=== PATIENT | female | born 1995 | race Caucasian/White ===

== ENCOUNTER 2017-01-07 11:02 | Emergency (ER) | payer BC, OTHER ==
[~2017-01-07] VITALS: Ht 157.5 cm; Wt 85.1 kg
[~2017-01-07 11:02] MED LIST: CLC100 PO; FRRS300 PO; LBT100 PO; PRENTAB26 PO
[2017-01-07 11:21] VITALS: TEMP 36.9; Ht 157.5 cm; Wt 85.1 kg
[2017-01-07] MEDS ORDERED: DIPHTHERIA/TETANUS/PERTUSSIS 0.5 ML SYR/VIAL IM. ONE (11:45)
--- NOTE | 2017-01-07 11:56 | EMERGENCY ROOM VISIT NOTE ---
ED Visit Note First contact with patient: 11:28 CHIEF COMPLAINT: Laceration to right third finger HISTORY OF PRESENT ILLNESS: This 21-year-old female presents the ER with chief complaint that she cut her right third finger on a scalpel while she was at work. 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 She states she was washing off the tray after he did and extraction and cut her right third finger through her glove. She does know the patient's name but at this point they did not contact the patient about her situation. The patient is unsure of her tetanus status. REVIEW OF SYSTEMS: 6 system review was performed and was negative unless stated otherwise in history of present illness. PMH: The patient is healthy; hypertension SOCIAL HISTORY: Patient lives with her parents. The patient denies any tobacco use but admits to occasional alcohol use. PHYSICAL EXAM: Vital Signs are reviewed: Reviewed Nurse's notes and agree. GENERAL: 21-year-old white female appears in no acute distress. MENTAL status: Alert oriented x3. Right third finger: There superficial cut on the dorsal aspect of the distal phalanx with mild active bleeding. EMERGENCY DEPARTMENT COURSE: The patient was evaluated. The wound was thoroughly cleansed with saline. The wound was dried and Dermabond applied. Adacel was given. HIV consent form was signed. Significant bodily fluid exposure was completed. Hepatitis panel and HIV panel was ordered. The patient was discharged home in stable condition. DIAGNOSIS: Significant body fluid exposure secondary to small cut on right third finger DISCHARGE INSTRUCTIONS: Observe for any signs of infection. If any should occur , follow-up family doctor. We will call you with your laboratory results. You need to contact the patient as soon as possible and have him tested for hepatitis and HIV. Further treatment based on laboratory results. Current/Historical Medications Scheduled Docusate Sodium (Docusate Sodium), 100 MG PO BID Ferrous Sulfate (Ferrous Sulfate), 325 MG PO BID Labetalol HCl (Labetalol HCl), 100 MG PO BID Multivit/Min/Iron/Fol Ac/Pren ( Vitamin), 1 TAB PO DAILY Allergies Coded Allergies: No Known Allergies (Unverified , 08/26/14) Vital Signs Date Time Temp Pulse Resp B/P Pulse Ox O2 Delivery O2 Flow Rate FiO2 01/07/17 11:21 36.9 80 18 128/88 98 Room Air Laboratory Results Test 01/07/17 11:37 Medications Administered Medications (Trade) Dose Ordered Sig/[place]osua Route Start Time Stop Time Status Last Admin Dose Admin Diphtheria/ Pertussis/Tetanus Vacc (Adacel Inj) 0.5 ml ONCE ONCE IM. 01/07/17 11:45 01/07/17 11:46 DC 01/07/17 11:46 0.5 ML Departure Information Referrals No Doctor, Assigned (PCP) Patient Instructions [facility]
[2017-01-07 12:15] VITALS: BP 121/78; PULSE 58; O2SAT 98
== END 2017-01-07 12:16 | disposition home or self-care (01) ==
LOC: C.EDB 11:03 → C.EDD 12:16
DX: S61.212A Laceration without foreign body of right middle finger without damage to nail, initial encounter (principal); W45.8XXA Other foreign body or object entering through skin, initial encounter; Y92.89 Other specified places as the place of occurrence of the external cause; Y99.0 Civilian activity done for income or pay; Z23 Encounter for immunization; I10 Essential (primary) hypertension; Z79.899 Other long term (current) drug therapy

== ENCOUNTER 2024-03-21 07:42 | Inpatient (IN) ==
--- OUTSIDE RECORDS SUMMARY | 2024-03-21 07:48 | External Medical Summary | Summary of Care ---
Author Name Unknown Organization [facility] Address [address] [place] [address] Phone [phone] Care Team Providers Care Tire Repairer Name Role Phone Marquez Jasmine PA-C Primary Care Provider Reason for Visit * Reason Comments Non Stress Test Encounter Details Date Type Department Care Team (Late st Contact Info) Description 03/13/2024 1:15 PM EDT Office Visit Gynecology/Obstetric s [facility] [address] [place] [address] Leena Mccarthy CRNP [address] [place] [address] [place], Non Stress Tests [facility] [address] [facility] [place] [address] Supervision of high risk in third trimester*; Obesity in , antepartum; Maternal asthma complicating ; History of gestational hypertension; Insulin controlled gestational diabetes mellitus (GDM) during , antepartum; Single umbilical artery, maternal, antepartum Allergies No known active allergiesdocumented as of this encounter (statuses as of 03/13/2024) Medications Medication Sig Dispensed Refills Start Date End Date Status /Folic Acid Oral Tablet Take by mouth. Active Aspirin 81 MG Oral Tablet ChewableIndications: High-risk in first trimester Take 1 Tablet by mouth in the morning. 100 Tablet 3 09/14/2023 Active Eth[employer] Verio Flex System w/Device Kit Use to test blood sugars 4 times daily (fasting, 1 hour after breakfast, lunch, and dinner) 1 Kit 09/17/2023 Active PlaymysongTouch Verio In Vitro Strip (Glucose Blood) Use to test blood sugars 4 times daily (fasting, 1 hour after breakfast, lunch, and dinner) 125 Strip 6 09/17/2023 Active [employer]mysongTo[employer] Delica Lancets 30G Use to test blood sugars 4 times daily (fasting, 1 hour after breakfast, lunch, and dinner) 200 Each 6 09/17/2023 Active BD Pen Needle Mini U/F 31G X 5 MM (Insulin Pen Needle)Indications:I nsulin controlled gestational diabetes mellitus (GDM) in second trimester,Supervisio n of high risk in second trimester Use to inject insulin once daily. 100 Each 3 09/29/2023 Active Breast Pump Use as directed 1 Each 01/13/2024 Active Insulin Glargine Solostar 100 UNIT/ML Subcutaneous Solution Pen-injector (Lantus SoloStar)Indications :Supervision of high risk in third trimester,Insulin controlled gestational diabetes mellitus (GDM) in third trimester Inject under the skin 10 units with breakfast and 25 units at bedtime 15 mL 3 02/28/2024 Active documented as of this encounter (statuses as of 03/13/2024) Active Problems Problem Noted Date Diagnosed Date Single umbilical artery, maternal, antepartum Last Assessment & Plan: Reviewed that an isolated two vessel cord is considered a normal variant of and occurs in up to 1% of pregnancies. In the absence of any other abnormalities noted on ultrasound, there is not an increased incidence of chromosome abnormalities beyond the baseline age-related risk. There is a slightly increased incidence, however, of growth restriction and stillbirth. Recommend Maternal Medicine ultrasound for growth at 28-32 weeks. Recommend weekly NSTs at 36 weeks. Insulin controlled gestation al diabetes mellitus (GDM) during , antepartum 09/21/2023 Overview: Diagnosed at 13 weeks Nutrition consult ordered; appt scheduled 10/04/2023 Has OneTouch and supplies A1C ordered Lab Results Component Value Date/Time 50-G GESTATIONAL GLUCOSE, 1 HOUR - [facility] 168 (H) 09/14/2023 09:22 AM 100-G GESTATIONAL GLUCOSE, 1 HOUR - [facility] 213 (H) 09/17/2023 09:00 AM 100-G GESTATIONAL GLUCOSE, 2 HOUR - [facility] 172 (H) 09/17/2023 10:00 AM 100-G GESTATIONAL GLUCOSE, 3 HOUR - [facility] 80 09/17/2023 11:01 AM 100-G GESTATIONAL GLUCOSE, FASTING - [facility] 103 (H) 09/17/2023 07:59 AM Patient reports her FBS is running in the 80's All after meal values are < 140 09/23/23: MFM ADAPT consult complete. Enrolled in [employer]. Instructions provided to report blood sugars each week for MFM review 09/27/23: RPM elevated fasting and PP values; recommend follow up ADAPT; message sent to scheduling. 09/29/23: ADAPT visit complete; elevated FBS and some PP; ordered Basaglar 10 units at bedtime 10/04/23- elevated sugars message sent to VOICE STUDIES DIRECTOR 10/04/23: RPM increase to Basaglar 20 units at bedtime; review breakfast values/meals with nutrition today. 10/07/23: A1C = 5.2 ---KW 10/11/23-stable 10/19/23: RPM Stable 10/26/23: RPM elevated PP values; increased to Basaglar 10 units with breakfast and 20 units at bedtime 11/02/23: RPM reviewed. Looking good. No medication change. Continue basaglar 10 units with breakfast and 20 units at bedtime --KW 11/08/23-stable 11/15/23-stable ; some elevated will monitor 11/22/23-stable 11/30/23- elevated fastings msg sent to VOICE STUDIES DIRECTOR 11/30/23: RPM reviewed; elevated FBS; continue Basaglar 10 units with breakfast and increase to 25 units at bedtime 12/06/23: RPM reviewed. Elevated FBS and after dinner values. Continue Basaglar 10 units with breakfast for now; increase to 30 units at bedtime. 12/13/2023- elevations in FBS sent to VOICE STUDIES DIRECTOR 12/13/23: RPM increase to Basaglar 10 units with breakfast and 40 units at bedtime 12/20/2318-[id number] missing sugars- will msg pt 12/27/23- stable- missing numbers- will review again next week 01/03/24: RPM message sent requesting updated blood sugars 01/10/24: has not entered blood sugars into [employer] since 12/29/23. Message to [facility] to assist patient with scheduling FU ADAPT 01/17/24: RPM message received - patient states she self discontinued insulin; only 1 blood sugar reported this past week and it was FBS 97; recommend F/U ADAPT visit 01/24/24: RPM reviewed. Patient testing very inconsistently, but reported numbers are WNL. Did not return calls to schedule ADAPT F/U last week. Will offer F/U visit again this week. 01/31/24: RPM reviewed. Patient has not reported blood sugars since 01/23. Will attempt again to schedule ADAPT F/U. Message sent to patient's OB; she has return visit scheduled this afternoon. 02/02/24: [facility] called patient on 01/16, 01/18, 01/24, 01/30 and today 02/01. Also sent MyG on 01/18, 01/25 and 01/30 to schedule ADAPT FU. No response from patient thus far. Telephone encounter routed to OB team. 02/07/24: RPM reviewed, no readings reported. Pt sent message that aline isn't working for her. Gave logs to OB. I reviewed the logs in the [email or web address] media portion of [facility]. FBS and after dinner elevated. Advised that Insulin needs to be restarted. Advised to restart: Basaglar 10 units at breakfast and 30 units at bedtime--KW 02/14/24: No blood sugars available to review in RPM; message sent to patient requesting to update log 02/14/24: patient sent MyG message with updated log; stable; continue Basaglar 10 units at breakfast and 30 units at bedtime; will offer patient weekly ADAPT as well 02/21/24: RPM reviewed; not reporting in [employer] Aline; message sent to the P[facility] to schedule a FU ADAPT 02/28/24: RPM reviewed; no blood sugars reported; ADAPT visit scheduled today - sent patient a reminder 02/28/24: ADAPT visit complete; stable but patient reports FBS 70s this week causing her to feel shaky; reviewed how to recognize and treat hypoglycemia; continue Lantus 10 units at breakfast and decrease to 25 units at bedtime; F/U ADAPT scheduled 03/06/2024 @ 3:00PM 03/06/24: RPM reviewed; no blood sugars reported; patient has upcoming ADAPT visit today 03/06/24: No show to ADAPT visit; [facility] to assist patient with rescheduling 03/[id number]/[id number] reporting. Sent message via [employer] and [employer] asking her to update. 03/13/24: Patient sent her BG log via [employer] message. All values within target. Continue Lantus 10 units at breakfast and 25 units at bedtime / Scheduled for IOL 03/21/24 Last Assessment & Plan: Working with ADAPT however, did not attend recent appointment and needs to reschedule KEENAN as not submitting sugars. Please encourage her to return call to [facility]. , supervision, high-risk 08/18/2023 Obesity in , antepartum 08/18/2023 Overview: Pre gravid BMI: 41.11 Class 3 obesity Last Assessment & Plan: CONSIDERATIONS: Discussed obstetrical risks associated with class III obesity (pre- BMI of greater than or equal to 40) Reviewed that the accuracy of ultrasound at diagnosing anomalies is significantly decreased for women with an increased BMI. RECOMMENDATIONS: Recommend restricting weight gain during to 11-20 pounds. Patient should be referred for a nutrition consult. Recommend evaluation for signs and symptoms (snoring, excessive daytime sleepiness witnessed apnea or unexplained hypoxia) of obstructive sleep apnea. If any of these are present, referral to Sleep Medicine specialist for further evaluation should be considered. Recommend performing gestational diabetes mellitus screen now (if not performed at first visit) and repeat again at 26-28 weeks if early screen is normal. Recommend Maternal- Medicine ultrasound for anatomy at 20 weeks and for growth every 4 weeks thereafter. For patients with Class 3 obesity, we recommend baseline preeclamptic labs with CBC, serum AST/ALT/creatinine and 24 hour urine protein KEENAN if not already done. For patients with Class 3 obesity, we recommend weekly surveillance starting at 34 weeks and delivery by EDC. Recommend anesthesia consult during the antepartum period. Maternal asthma complicating 10/25/202 3 Overview: Diagnosed in childhood 09/23/23 last albuterol use: > 5 years ago Denies hospitalizations or intubations due to asthma Last Assessment & Plan: CONSIDERATIONS: Asthma symptoms may improve, worsen or remain unchanged in severity in . Asthma is generally managed the same in as in the non- patient, as asthma-control medications are considered safe in . If asthma is well-controlled with medications prior to , it is recommended to continue the same medication regimen during . A patient should seek medical care immediately if an asthma flare does not respond to therapy. Mild and well-controlled moderate asthma can be associated with excellent maternal and outcomes. Severe and poorly controlled asthma may be associated with increased morbidity and mortality. Asthma management includes monitoring of lung function with pulmonary function testing (when indicated), avoidance of triggers (such as tobacco smoke, mold, dust mite exposure, animal dander and cockroaches), and a step-care approach to pharmacologic therapy based on the severity of the patient's asthma. RECOMMENDATIONS: Inhaled corticosteroids are the mainstay of therapy for all patients except those with intermittent asthma. If patients are routinely requiring rescue inhaler (such as albuterol, Ventolin, ProAir, Atrovent, or Proventil) use more than twice weekly, we recommend adding a low-dose inhaled corticosteroid. [Pulmicort (budesonide) is preferred to use in .] If patients are routinely requiring rescue inhaler use daily, we recommend adding a combined low-dose inhaled corticosteroid/long-acting beta-agonist [such as Advair (fluticasone/salmeterol) or Symbicort (budesonide/formoterol)] or a medium dose inhaled corticosteroid. Patient should discuss these treatment options with her primary OB provider or PCP. Typically, patients do not need stress dose steroids as long as they continue their usual dose perioperatively (or during labor) and do not have primary renal failure or other problems with the pituitary axis. Medications such as prostaglandin F2a (including Hemabate), ergonovine, and indomethacin (in patients who are aspirin allergic) should be used with caution. Patients with moderate or severe persistent asthma should have Maternal- Medicine ultrasound for anatomy at 19-20 weeks. surveillance with growth ultrasounds and non-stress tests should be considered starting at 32 weeks. History of gestational hypertension 08/18/2023 Overview: 2014: first , diagnosed at 38w, delivered at term, was temporarily on anti-hypertensive x 2 weeks Currently not on any anti-hypertensive Taking daily low dose ASA Baseline Preeclampsia Labs Lab Results Component Value Date/Time PLATELET AUTO - [facility] 224 08/18/2023 09:43 AM CREATININE - [facility] 0.6 08/18/2023 09:43 AM AST - [facility] 11 08/18/2023 09:43 AM ALT - [facility] 14 08/18/2023 09:43 AM PROTEIN/ CREATININE RATIO, URINE - [facility] 88 08/18/2023 09:35 AM BP Readings from Last 10 Encounters: 09/14/23 130/84 08/18/23 128/78 05/31/23 118/80 02/16/22 116/80 11/22/19 110/64 11/10/19 108/64 12/18/14 132/68 12/03/14 112/70 10/11/14 110/70 09/05/14 124/72 Last Assessment & Plan: CONSIDERATIONS: Explained to patient that in a woman who has always had normal blood pressures, gestational hypertension (GHTN) is defined as persistent elevations in her BP after 20 weeks gestation. Elevated BP is defined as greater than or equal to 140mmHg systolic or greater than 90mmHg diastolic on two separate occasions at least 4 hours apart after 20 weeks gestation. Explained to patient that women with hypertension during are at significantly increased risk for placental abruption, pre-eclampsia/eclampsia, delivery, gestational diabetes, growth restriction, stillbirth, delivery, hemorrhage, and maternal morbidity. These risks are related to the severity of the hypertension RECOMMENDATIONS: Recommend patient be followed clinically. Also recommend labwork with AST/ALT and platelets, and urine protein screen. If diagnosed with gestational hypertension recommend Maternal Medicine ultrasound for growth within 1 week of GHTN diagnosis and then every 4 weeks thereafter. Reviewed that GHTN, pre-eclampsia and HELLP are not preventable conditions. There is some evidence that daily ASA 81mg may decrease the risk for recurrence in patients with additional risk factors we recommend that proceed with starting this therapy at 13 weeks. Mixed anxiety depressive disorder 01/25/2015 Asthma with severity to be determined 01/25/2001 Overview: ICD-10 update of inactive term Estimated Date of Delivery Comme nts Yes 03/27/2024 Based on last me nstrual period of 06/21/2023, had Mirena removed 05/31/23 only had 1 period from removal until documented as of this encounter (statuses as of 03/13/2024) Resolved Problems Problem Noted Date Diagnosed Date Resolved Date with 13 completed weeks gestation 09/23/2023 09/23/2023 Glucose intolerance of 09/14/2023 09/21/2023 Overview: Elevated early 1 hr - 3 hr GTT ordered , normal first 02/09/201408/25 Overview: 05/30/2014 Tdap Vaccine administered per clinic protocol. Pt given VIS(vaccine information sheet) Flower Armstrong RN Elevated 1 hour GTT: 146 3 hour GTT: normal. Patient declines flu vaccine. 08/02/2014 Raven Cutler RN NO KNOWN PROBLEMS 02/09/2014 documented as of this encounter (statuses as of 03/13/2024) Immunizations Name Administration Dates Next Due HPV Vaccine, 4-Valent 08/02/2008,03/29/2008,12/24 Meningococcal Conjugate Vacc ine (Menactra/Menveo) 01/13/2008 Seasonal Influenza, Split, I IV3, With Preserve, Inj 09/14/2008,08/12/2006 TDAP (age 10 and older)(Boostrix) 01/13/2024,03/2014 TDAP (age 11 and older)(Adacel) 07/21/2006 documented as of this encounter Social History Tobacco Use Types Packs/Day Years Used Date Smoking Tobacco: Never Smokeless Tobacco: Never Comments:grandmother smokes Alcohol Use Standard Drinks/Week Comments No 0 (1 standard drink = 0.6 oz pur e alcohol) PHQ-2 Answer Date Recorded PHQ Adult Total Score 0 01/13/2024 Hunger Vital Sign Answer Date Recorded Within the past 12 months, y ou worried that your food would run out before you got the money to buy more. Never true 11/07/19 24 Within the past 12 months, t he food you bought just didn't last and you didn't have money to get more. Never true 11/07/2023 [place] Depression Scale Answer Date Recorded [place] Depression Scale Total 2 01/13/2024 The thought of harming myself has occurred to me . Never 01/13/2024 Estimated Date of Delivery Comme nts Yes 03/27/2024 Based on last me nstrual period of 06/21/2023, had Mirena removed 05/31/23 only had 1 period from removal until Sex and Gender Information Value Date Recorded Sex Assigned at Female 05/28/2023 12:32 PM EDT Gender Identity Female 05/28/2023 12:32 PM EDT Sexual Orientation Straight 05/28/2023 12 :37 PM EDT Job Start Date Occupation Industry Not on file Not on file Not on file documented as of this encounter Last Filed Vital Signs Vital Sign Reading Time Taken Comments Blood Pressure 124/74 03/13/2024 1:03 PM EDT Pulse - - Temperature - - Respiratory Rate - - Oxygen Saturation - - Inhaled Oxygen Concentration - - Weight 109.3 kg (241 lb) 03/13/2024 1:03 PM EDT Height - - Body Mass Index 42.69 02/21/2024 1:34 PM EDT documented in this encounter Progress Notes * Leena Mccarthy CRNP - 03/13/2024 1:40 PM EDT 38w0d movement still her norm; some ctx. No leaking/bleeding. Sent blood sugar readings to [facility] today, WNL. Requests membrane sweep, advised this cannot be done prior to 39 wks. Induction is next Wednesday. Declines cervical exam today. Growth scan done last week with [facility]. NST on . TAMIKO Samano ASSESSMENT assessment with Non-stress Test completed on 03/13/2024 at 38 weeks gestation for indication of gestational diabetes mellitus, 2 VC, and obesity heart baseline: 140 bpm Variability: Moderate Decelerations: absent Accelerations: present Contractions: Present occasionally NST start time: 1308 NST stop time: 1333 NST strip reviewed, interpreted, and approved by OB provider, TAMIKO Samano . NST strip stored in clinic storage file documented in this encounter Plan of Treatment Upcoming Encounters Date Type Department Care Team (Late st Contact Info) Description 03/16/2024 1:45 PM EDT Office Visit Gynecology/Obstetrics [facility] [address] [place] [id number] Leena Mccarthy CRNP [address] [place] [address] [facility] Stress [facility] [address] [place] [id number] Health Maintenance Due Date Last Done Comments Pneumococcal Vaccine: Pediat rics (0 to 5 Years) and At-Risk Patients (6 to 64 Years) (1 of 2 - PCV) 2001 *SPIROMETRY ONCE FOR ASTHMA-ADULT 09/17/2022 COVID-19 Vaccine (2 - 2022-2 4 season) 2023 03/07/2021 Influenza Vaccine (FLU shot) (Season Ended) 2024 09/14/2008, 08/12/2006 Pap Smear 05/31/2026 05/31/2023, 10/25, 11/10/2019 DTaP,Tdap,and Td Vaccines (9 - Td or Tdap) 01/12/2034 01/13/2024, 05/30/2014, 07/21/2006, Additional history exists Hepatitis B Completed 1995, 11/1995, 1995, Additional history exists GARDASIL-HPV IMMUNIZATION SERIES Completed 08/02/2008, 03/29/2008, 01/13/2008, Additional history exists MENINGOCOCCAL (MENACTRA/MENVEO) Completed 06/24/2011, 01/13/2008, 01/13/2008 documented as of this encounter Medical Devices Not on filedocumented as of this encounter Visit Diagnoses Diagnosis Supervision of high risk in third trimester- Primary Unspecified high-risk Obesity in , antepartum Obesity complicating , childbirth, or the puerperium, antepartum condition or complication Maternal asthma complicating Other current maternal conditions classifiable elsewhere, complicating , childbirth, or the puerperium, unspecified as to episode of care History of gestational hypertension Insulin controlled gestational diabetes mellitus (GDM) during , antepartum Single umbilical artery, maternal, antepartum Other umbilical cord complications during labor and delivery, antepartum documented in this encounter Care Teams Tire Repairer Relationship Specialty Start Date End Date Marquez Jasmine PA-C [address] [place] [id number] PCP - General Physician Microfiche Camera Operator 11/02/14 documented as of this encounter
--- OUTSIDE RECORDS SUMMARY | 2024-03-21 07:48 | External Medical Summary | Summary of Care ---
Author Name Unknown Organization [facility] Address [address] [place] [address] Phone [phone] Care Team Providers Care Processing Lead Name Role Phone Marquez Jasmine PA-C Primary Care Provider Reason for Visit * Reason Comments Non Stress Test Encounter Details Date Type Department Care Team (Late st Contact Info) Description 03/16/2024 1:45 PM EDT Office Visit Gynecology/Obstetric [facility] [address] [place] [address] Leena Mccarthy CRNP [address] [place] [address] [place], Non Stress Tests [facility] [address] [facility] [place] [address] Supervision of high risk in third trimester*; Obesity in , antepartum; Maternal asthma complicating ; History of gestational hypertension; Insulin controlled gestational diabetes mellitus (GDM) during , antepartum; Single umbilical artery, maternal, antepartum Allergies No known active allergiesdocumented as of this encounter (statuses as of 03/16/2024) Medications Medication Sig Dispensed Refills Start Date End Date Status /Folic Acid Oral Tablet Take by mouth. Active Aspirin 81 MG Oral Tablet ChewableIndications: High-risk in first trimester Take 1 Tablet by mouth in the morning. 100 Tablet 3 09/14/2023 Active Voice Assist Verio Flex System w/Device Kit Use to test blood sugars 4 times daily (fasting, 1 hour after breakfast, lunch, and dinner) 1 Kit 09/17/2023 Active VolpitTouch Verio In Vitro Strip (Glucose Blood) Use to test blood sugars 4 times daily (fasting, 1 hour after breakfast, lunch, and dinner) 125 Strip 6 09/17/2023 Active Volpit[employer]Fisker [employer] Delica Lancets 30G Use to test blood [...] as of this encounter (statuses as of 03/16/2024) Active Problems Problem Noted Date Diagnosed Date [...] bedtime 10/04/23- elevated sugars message sent to UTILITY ENGINEER 10/04/23: RPM increase to Basaglar 20 units [...] 11/22/23-stable 11/30/23- elevated fastings msg sent to UTILITY ENGINEER 11/30/23: RPM reviewed; elevated FBS; continue Basaglar 10 units with breakfast and increase to 25 units at bedtime 12/06/23: RPM reviewed. Elevated FBS and after dinner values. Continue Basaglar 10 units with breakfast for now; increase to 30 units at bedtime. 12/13/2023- elevations in FBS sent to UTILITY ENGINEER 12/13/23: RPM increase to Basaglar 10 units with breakfast and 40 units at bedtime 12/20/2356-nozsll-ycpq missing sugars- will msg pt 12/27/23- stable- missing numbers- will review again next week 01/03/24: RPM message sent requesting updated blood sugars 01/10/24: has not entered blood sugars into [facility] since 12/29/23. Message to [facility] to assist patient with scheduling FU [...] has return visit scheduled this afternoon. 02/02/24: [facility] called patient on 01/16, 01/18, 01/24, 01/30 and today 02/01. Also sent MyG on 01/18, 01/25 and 01/30 to schedule ADAPT FU. No response from patient thus far. Telephone encounter routed to OB team. 02/07/24: RPM reviewed, no readings reported. Pt sent message that aline isn't working for her. Gave logs to OB. I reviewed the logs in the [employer] media portion of [employer]. FBS and after dinner elevated. Advised that [...] today 03/06/24: No show to ADAPT visit; [facility] to assist patient with rescheduling 03/13/[id number]-cly reporting. Sent message via [email or web address] and [email or web address] asking her to update. 03/13/24: Patient sent her BG log via picsell message. All values within target. Continue Lantus 10 units at breakfast and 25 units at bedtime / Scheduled for IOL 03/21/24 Last Assessment & Plan: Working with ADAPT however, did not attend recent appointment and needs to reschedule KEENAN as not submitting sugars. Please encourage her to return call to [facility]. , supervision, high-risk 08/18/2023 Obesity in , [...] as of this encounter (statuses as of 03/16/2024) Resolved Problems Problem Noted Date Diagnosed Date [...] as of this encounter (statuses as of 03/16/2024) Immunizations Name Administration Dates Next Due HPV [...] money to get more. Never true 11/07/2023 [place] Depression Scale Answer Date Recorded [place] Depression Scale Total 2 01/13/2024 The thought [...] Sign Reading Time Taken Comments Blood Pressure 126/84 03/16/2024 1:36 PM EDT Pulse - - Temperature - - Respiratory Rate - - Oxygen Saturation - - Inhaled Oxygen Concentration - - Weight 109.7 kg (241 lb 12.8 oz) 03/16/2024 1:36 PM EDT Height - - Body Mass Index 42.83 02/21/2024 1:34 PM EDT documented in this encounter Progress Notes * Leena Mccarthy CRNP - 03/16/2024 1:42 PM EDT ASSESSMENT assessment with Non-stress Test completed on 03/16/2024 at 38.3 weeks gestation for indicationof gestational diabetes mellitus, obesity, and 2 vessel umbilical cord heart baseline: 140 bpm Variability: Moderate Decelerations: absent Accelerations: present Contractions: Present x3 NST start time: 1328 NST stop time: 1404 NST strip reviewed, interpreted, and approved by OB provider, TAMIKO Samano . NST strip stored in clinic storage file Ctx more painful, still irregular. No LOF/bleeding. Cervix 1, thick/high. Reviewed labor precautions. IOL scheduled for Wednesday. Environmental Health Safety Manager - Joann TAMIKO Samano documented in this encounter Plan of Treatment Health Maintenance Due Date Last Done Comments [...] antepartum documented in this encounter Care Teams Processing Lead Relationship Specialty Start Date End Date Marquez Jasmine PA-C [address] [place] [phone] PCP - General Physician Email Marketing Manager 11/02/14 documented as of this encounter
--- OUTSIDE RECORDS SUMMARY | 2024-03-21 07:48 | External Medical Summary | Summary of Care ---
Author Name Unknown Organization [facility] Address [address] [place] [address] Phone [phone] Care Team Providers Care Antitank Assault Gunner Name Role Phone Marquez Jasmine PA-C Primary Care Provider Reason for Visit * Reason Comments Non Stress Test Encounter Details Date Type Department Care Team (Late st Contact Info) Description 03/13/2024 1:15 PM EDT Office Visit Gynecology/Obstetric [facility] [address] [place] [address] Leena Mccarthy CRNP [address] [place] [address] [place], Non Stress Tests [facility] [address] [facility] [place] [address] Supervision of high risk in third trimester*; [...] the morning. 100 Tablet 3 09/14/2023 Active Shareholder InSite Verio Flex System w/Device Kit Use to test blood sugars 4 times daily (fasting, 1 hour after breakfast, lunch, and dinner) 1 Kit 09/17/2023 Active Snow & AlpsTouch Verio In Vitro Strip (Glucose Blood) Use to test blood sugars 4 times daily (fasting, 1 hour after breakfast, lunch, and dinner) 125 Strip 6 09/17/2023 Active Snow & AlpsToMobile Accord Delica Lancets 30G Use to test blood [...] bedtime 10/04/23- elevated sugars message sent to SYSTEM DEVELOPMENT MANAGER 10/04/23: RPM increase to Basaglar 20 units [...] 11/22/23-stable 11/30/23- elevated fastings msg sent to SYSTEM DEVELOPMENT MANAGER 11/30/23: RPM reviewed; elevated FBS; continue Basaglar 10 units with breakfast and increase to 25 units at bedtime 12/06/23: RPM reviewed. Elevated FBS and after dinner values. Continue Basaglar 10 units with breakfast for now; increase to 30 units at bedtime. 12/13/2023- elevations in FBS sent to SYSTEM DEVELOPMENT MANAGER 12/13/23: RPM increase to Basaglar 10 units with breakfast and 40 units at bedtime 12/20/2363-jzmgmw-htwg missing sugars- will msg pt 12/27/23- stable- missing numbers- will review again next week 01/03/24: RPM message sent requesting updated blood sugars 01/10/24: has not entered blood sugars into [facility] since 12/29/23. Message to [facility] to assist patient with [...] has return visit scheduled this afternoon. 02/02/24: [facility] PARs called patient on 01/16, 01/18, 01/24, 01/30 and today 02/01. Also sent MyG on 01/18, 01/25 and 01/30 to schedule ADAPT FU. No response from patient thus far. Telephone encounter routed to OB team. 02/07/24: RPM reviewed, no readings reported. Pt sent message that aline isn't working for her. Gave logs to OB. I reviewed the logs in the [employer] media portion of [employer]. FBS and after dinner elevated. Advised that [...] today 03/06/24: No show to ADAPT visit; [facility] to assist patient with rescheduling 03/13/[id number]-GYI-hrg reporting. Sent message via Pageflakes and Veotag asking her to update. 03/13/24: Patient sent her BG log via [employer] message. All values within target. Continue Lantus 10 units at breakfast and 25 units at bedtime / Scheduled for IOL 03/21/24 Last Assessment & Plan: Working with [facility]APT however, did not attend recent appointment and needs to reschedule KEENAN as not submitting sugars. Please encourage her to return call to [facility]. , supervision, high-risk 08/18/2023 Obesity [...] money to get more. Never true 11/07/2023 [place] Depression Scale Answer Date Recorded [place] Depression Scale Total 2 01/13/2024 The thought [...] No leaking/bleeding. Sent blood sugar readings to [facility] today, WNL. Requests membrane sweep, advised this cannot be done prior to 39 wks. Induction is next Wednesday. Declines cervical exam today. Growth scan done last week with [facility]. NST on . TAMIKO Samano [...] [place] [address] [place] [address] Leena Mccarthy CRNP [address] [place] [address] Sh[place] Stress Tests Dave [address] [place] [address] Health Maintenance Due Date Last Done Comments [...] antepartum documented in this encounter Care Teams Antitank Assault Gunner Relationship Specialty Start Date End Date Marquez Jasmine PA-C [address] [place] [id number] PCP - General Physician Drywall Contractor 11/02/14 documented as of this encounter
--- OUTSIDE RECORDS SUMMARY | 2024-03-21 07:49 | External Medical Summary | Summary of Care ---
Author Name Unknown Organization [facility] Address [address] [place] [address] Phone [phone] Care Team Providers Care End Finder Twisting Department Name Role Phone Marquez Jasmine PA-C Primary Care Provider Reason for Visit * Reason Comments Non Stress Test Encounter Details Date Type Department Care Team ([facility] st Contact Info) Description 03/06/2024 9:45 AM EDT Office Visit Gynecology/[facility]st[facility] [address] [facility] [address] Ina Paula, [place] [address] [place] [address] [place], Non Stress Tests [facility] [address] Supervision of high risk in third trimester*; Obesity in , antepartum; Maternal asthma complicating ; History of gestational hypertension; Insulin controlled gestational diabetes mellitus (GDM) during , antepartum; Single umbilical artery, maternal, antepartum Allergies No known active allergiesdocumented as of this encounter (statuses as of 03/06/2024) Medications Medication Sig Dispensed Refills Start Date End Date Status /Folic Acid Oral Tablet Take by mouth. 0 Active Aspirin 81 MG Oral Tablet ChewableIndications :High-risk in first trimester Take 1 Tablet by mouth in the morning. 100 Tablet 3 09/14/2023 Active SensGard Flex System w/Device Kit Use to test blood sugars 4 times daily (fasting, 1 hour after breakfast, lunch, and dinner) 1 Kit 0 09/17/2023 Active [employer] VascularToProTenders In Vitro Strip (Glucose Blood) Use to test blood sugars 4 times daily (fasting, 1 hour after breakfast, lunch, and dinner) 125 Strip 6 09/17/2023 Active [employer] Delica Lancets 30G Use to test blood sugars 4 times daily (fasting, 1 hour after breakfast, lunch, and dinner) 200 Each 6 09/17/2023 Active BD Pen Needle Mini U/F 31G X 5 MM (Insulin Pen Needle)Indications: Insulin controlled gestational diabetes mellitus (GDM) in second trimester,Supervisi on of high risk in second trimester Use to inject insulin once daily. 100 Each 3 09/29/2023 Active Breast Pump Use as directed 1 Each 0 01/13/2024 Active Additional Information Patient not taking.Reported on 02/28/2024 Insulin Glargine Solostar 100 UNIT/ML Subcutaneous Solution Pen-injector (Lantus SoloStar)Indication s:Supervision of high risk in third trimester,Insulin controlled gestational diabetes mellitus (GDM) in third trimester Inject under the skin 10 units with breakfast and 25 units at bedtime 15 mL 3 02/28/2024 Active documented as of this encounter (statuses as of 03/06/2024) Active Problems Problem Noted Date Diagnosed Date [...] bedtime 10/04/23- elevated sugars message sent to SUPERVISOR PHOSPHORUS PROCESSING 10/04/23: RPM increase to Basaglar 20 units [...] 11/22/23-stable 11/30/23- elevated fastings msg sent to SUPERVISOR PHOSPHORUS PROCESSING 11/30/23: RPM reviewed; elevated FBS; continue Basaglar 10 units with breakfast and increase to 25 units at bedtime 12/06/23: RPM reviewed. Elevated FBS and after dinner values. Continue Basaglar 10 units with breakfast for now; increase to 30 units at bedtime. 12/13/2023- elevations in FBS sent to SUPERVISOR PHOSPHORUS PROCESSING 12/13/23: RPM increase to Basaglar 10 units with breakfast and 40 units at bedtime 12/20/2315-ozhdeh-hpvw missing sugars- will msg pt 12/27/23- stable- missing numbers- will review again next week 01/03/24: RPM message sent requesting updated blood sugars 01/10/24: has not entered blood sugars into [facility] since 12/29/23. Message to [facility] to assist patient with scheduling [...] has return visit scheduled this afternoon. 02/02/24: [facility] called patient on 01/16, 01/18, 01/24, 01/30 and today 02/01. Also sent MyG on 01/18, 01/25 and 01/30 to schedule ADAPT FU. No response from patient thus far. Telephone encounter routed to OB team. 02/07/24: RPM reviewed, no readings reported. Pt sent message that aline isn't working for her. Gave logs to OB. I reviewed the logs in the [employer] media portion of [employer]. FBS and after dinner elevated. Advised that [...] bedtime; F/U ADAPT scheduled 03/06/2024 @ 3:00PM Last Assessment & Plan: Working with ADAPT. , supervision, high-risk 08/18/2023 Obesity in , [...] during the antepartum period. Maternal asthma complicating Overview: Diagnosed in childhood 09/23/23 last albuterol [...] as of this encounter (statuses as of 03/06/2024) Resolved Problems Problem Noted Date Diagnosed Date [...] as of this encounter (statuses as of 03/06/2024) Immunizations Name Administration Dates Next Due HPV [...] money to get more. Never true 11/07/2023 [place] Depression Scale Answer Date Recorded [place] Depression Scale Total 2 01/13/2024 The thought [...] Sign Reading Time Taken Comments Blood Pressure - - Pulse - - Temperature - - Respiratory Rate - - Oxygen Saturation - - Inhaled Oxygen Concentration - - Weight 107.9 kg (237 lb 12.8 oz) 03/06/2024 9:34 AM EDT Height - - Body Mass Index 42.12 02/21/2024 1:34 PM EDT documented in this encounter Progress Notes * Ina Paula CNM - 03/06/2024 10:03 AM EDT ASSESSMENT assessment with Non-stress Test completed on 03/06/2024 at 37weeks gestation for indication ofdiabetes mellitus heart baseline: 140 bpm Variability: Moderate Decelerations: absent Accelerations: present Contractions: None NST start time: 0926 NST stop time: 0956 NST strip reviewed, interpreted, and approved by OB provider, Yomi Paula CNM. NST strip stored in clinic storage file documented in this encounter Nursing Notes * Joann Willis LPN - 03/06/2024 9:35 AM EDT 37w0d NST today Pt reports she noticed some blood on toilet paper when wiping this morning. States cramping + nausea documented in this encounter Plan of Treatment Upcoming Encounters Date Type Department Care Team (Late st Contact Info) Description 03/06/2024 3:00 PM EDT Telemedicine Fiberglasser Obstetrics Maternal Medicine, [place] [address] [address] Estela Herrera CRNP [address] [place] [address] 03/09/2024 10:15 AM EDT Office Visit Gynecology/Obstetrics [facility] [address] [place] [address] Stephanie Tamayo CRNP [address] [place] [address] [place] Non Stress Tests [place] [address] [place] [address] 03/09/2024 11:00 AM EDT Imaging Maternal Medicine Imaging, [place] [address] [place] [id number] 03/13/2024 1:15 PM EDT Office Visit Gynecology/Obstetrics [facility] [address] [place] [address] Leena Mccarthy CRNP [address] [place] [address] [place] Non Stress Tests [place] [address] [place] [address] 03/16/2024 1:45 PM EDT Office Visit Gynecology/Obstetrics [facility] [address] [place] [address] Leena Mccarthy CRNP [address] [place] [address] [place] Non Stress Tests Dave [address] [place] [address] Health Maintenance Due Date Last Done Comments [...] antepartum documented in this encounter Care Teams End Finder Twisting Department Relationship Specialty Start Date End Date Marquez Jasmine PA-C [address] [place] [id number] PCP - General Physician Commercial Real Estate Associate 11/02/14 documented as of this encounter
--- OUTSIDE RECORDS SUMMARY | 2024-03-21 07:49 | External Medical Summary | Summary of Care ---
Author Name Unknown Organization [facility] Address [address] [place] [address] Phone [phone] Care Team Providers Care Wheel Worker Name Role Phone Marquez Jasmine PA-C Primary Care Provider Encounter Details Date Type Department Care Team (Late st Contact Info) Description 03/09/2024 11:00 AM EDT Office Visit Telemetry Nurse Obstetrics Maternal Medicine, [facility] [address] [place] [address] Jacqueline Leal, DO [address] [place] [address] Single umbilical artery, maternal, antepartum*; Obesity in , antepartum; Insulin controlled gestational diabetes mellitus (GDM) during , antepartum; Ultrasound for screening for growth restriction; 37 weeks gestation of Allergies No known active allergiesdocumented as of this encounter (statuses as of 03/09/2024) Medications Medication Sig Dispensed Refills Start Date End Date Status /Folic Acid Oral Tablet Take by mouth. 0 Active Aspirin 81 MG Oral Tablet ChewableIndications: High-risk in first trimester Take 1 Tablet by mouth in the morning. 100 Tablet 3 09/14/2023 Active Infoxelio Flex System w/Device Kit Use to test blood sugars 4 times daily (fasting, 1 hour after breakfast, lunch, and dinner) 1 Kit 0 09/17/2023 Active NeteroTouch Verio In Vitro Strip (Glucose Blood) Use to test blood sugars 4 times daily (fasting, 1 hour after breakfast, lunch, and dinner) 125 Strip 6 09/17/2023 Active OneTouch Delica Lancets 30G Use to test blood [...] as directed 1 Each 0 01/13/2024 Active Insulin Glargine Solostar 100 UNIT/ML Subcutaneous Solution Pen-injector (Lantus SoloStar)Indications :Supervision of high risk in third trimester,Insulin controlled gestational diabetes mellitus (GDM) in third trimester Inject under the skin 10 units with breakfast and 25 units at bedtime 15 mL 3 02/28/2024 Active documented as of this encounter (statuses as of 03/09/2024) Active Problems Problem Noted Date Diagnosed Date [...] bedtime 10/04/23- elevated sugars message sent to HAND PLUG SHAPER 10/04/23: RPM increase to Basaglar 20 units [...] 11/22/23-stable 11/30/23- elevated fastings msg sent to HAND PLUG SHAPER 11/30/23: RPM reviewed; elevated FBS; continue Basaglar 10 units with breakfast and increase to 25 units at bedtime 12/06/23: RPM reviewed. Elevated FBS and after dinner values. Continue Basaglar 10 units with breakfast for now; increase to 30 units at bedtime. 12/13/2023- elevations in FBS sent to HAND PLUG SHAPER 12/13/23: RPM increase to Basaglar 10 units with breakfast and 40 units at bedtime 12/20/2315-nthvmm-yxod missing sugars- will msg pt 12/27/23- stable- missing numbers- will review again next week 01/03/24: RPM message sent requesting updated blood sugars 01/10/24: has not entered blood sugars into [facility] since 12/29/23. Message to [facility] to assist patient with scheduling FU ADAPT [...] has return visit scheduled this afternoon. 02/02/24: [facility] called patient on 01/16, 01/18, 01/24, 01/30 and today 02/01. Also sent MyG on 01/18, 01/25 and 01/30 to schedule ADAPT FU. No response from patient thus far. Telephone encounter routed to OB team. 02/07/24: RPM reviewed, no readings reported. Pt sent message that aline isn't working for her. Gave logs to OB. I reviewed the logs in the [employer] media portion of [employer]. FBS and after dinner elevated. Advised that [...] today 03/06/24: No show to ADAPT visit; [facility] to assist patient with rescheduling Last Assessment & Plan: Working with ADAPT however, did not attend recent appointment and needs to reschedule KEENAN as not submitting sugars. Please encourage her to return call to [facility]. , supervision, high-risk 08/18/2023 Obesity in [...] as of this encounter (statuses as of 03/09/2024) Resolved Problems Problem Noted Date Diagnosed Date [...] as of this encounter (statuses as of 03/09/2024) Immunizations Name Administration Dates Next Due DTP Vaccine 1995,1995,1995 DTP/HIB (Tetramune) 08/14/1996 DTaP Dipth/Tet/Acell Pertussis (Infanrix), Peds 10/02/1999 HIB PRP-T, 4 dose (ActHib) 1995,1995 ,1995 HPV Vaccine, 4-Valent 08/02/2008,03/29/2008,12/24 Hepatitis B, 0-19 yrs 1995,1995,04/24 IPV - Polio Virus Vaccine (Inact) 10/02/1999,10/1994,1995 MMR - Measles/Mumps/Rubella Vaccine 10/02/1999,0 05/19/1996 Meningococcal Conjugate Vacc ine (Menactra/Menveo) 01/13/2008 OPV - Polio Virus Vaccine (Oral) 08/14/1996 Seasonal Influenza, Split, I IV3, With Preserve, Inj 09/14/2008,08/12/2006 TB Vilma Test 02/29/1996 TDAP (age 10 and older)(Boostrix) 01/13/2024,03/2014 TDAP (age 11 and older)(Adacel) 07/21/2006 Varicella Vaccine (Chicken Pox) 05/19/1996 documented as of this encounter Social History [...] money to get more. Never true 11/07/2023 [place] Depression Scale Answer Date Recorded [place] Depression Scale Total 2 01/13/2024 The thought [...] on file documented as of this encounter Progress Notes * Jacqueline Leal, - 03/09/2024 11:13 AM EDT Chio presented today at 37w3d for an ultrasound for the following indications: Single umbilical artery, maternal, antepartum Obesity in , antepartum Insulin controlled gestational diabetes mellitus (GDM) during , antepartum Assessment & Plan: Working with ADAPT however, did not attend recent appointment and needs to reschedule KEENAN as not submitting sugars. Please encourage her to return call to [facility]. Ultrasound for screening for growth restriction 37 weeks gestation of Ultrasound summary: Patient presented at 37w 3d for growth assessment. Normal growth with EFW 3332 g at 70%ile. Normal CHARLEEN at 7.5 cm. Cephalic presentation. BPP 06/01. I reviewed the ultrasound images. Chio was given the opportunity to meet with me if she had any questions. Please refer to the ultrasound report for additional details about today's ultrasound examination. RECOMMENDATIONS: Follow up with MFM for ultrasound as clinically indicated. 2x weekly NSTs. ADAPT follow-up needed. See prior formal MFM consultation note. Thank you for allowing us to participate in the care of this patient. Please call with any questions. Jacqueline Leal DO 03/09/2024 11:14 AM documented in this encounter Miscellaneous Notes * Assessment & Plan Note - Jacqueline Leal DO - 03/09/2024 11:13 AM EDT Associated Problem(s): Insulin controlled gestational diabetes mellitus (GDM) during , antepartum Working with ADAPT however, did not attend recent appointment and needs to reschedule KEENAN as not submitting sugars. Please encourage her to return call to [facility]. documented in this encounter Plan of Treatment Upcoming Encounters Date Type Department Care Team (Late st Contact Info) Description 03/13/2024 1:15 PM EDT Office Visit Gynecology/Obstetrics Venessa Marin [address] [place] [address] Leena Mccarthy CRNP [address] [place] [address] [place], Non Stress Tests Dave [address] [place] [address] 03/16/2024 1:45 PM EDT Office Visit Gynecology/Obstetrics Venessa Marin [address] [place] [address] Leena Mccarthy CRNP [address] [place] [address] [place], Non Stress Tests Dave [address] [place] [address] Health Maintenance Due Date Last Done Comments [...] as of this encounter Visit Diagnoses Diagnosis Single umbilical artery, maternal, antepartum- Primary Other umbilical cord complications during labor and delivery, antepartum Obesity in , antepartum Obesity complicating , childbirth, or the puerperium, antepartum condition or complication Insulin controlled gestational diabetes mellitus (GDM) during , antepartum Ultrasound for screening for growth restriction screening for growth retardation using ultrasonics 37 weeks gestation of state, incidental documented in this encounter Care Teams Wheel Worker Relationship Specialty Start Date End Date Marquez Jasmine PA-C [address] [place] [phone] PCP - General Physician Field Control Inspector 11/02/14 documented as of this encounter
--- OUTSIDE RECORDS SUMMARY | 2024-03-21 07:49 | External Medical Summary | Summary of Care ---
Author Name Unknown Organization [facility] Address [address] [place] [address] Phone [phone] Care Team Providers Care Pay Station Collector Name Role Phone Marquez Jasmine PA-C Primary Care Provider Encounter Details Date Type Department Care Team (Late st Contact Info) Description 03/07/2024 Telephone Marketing Project Coordinator Obstetrics Maternal Medicine, [place] [address] [place], [place] [phone] [place], Nurse Marketing Project Coordinator [facility] [address] [place], [place] [phone] Allergies No known active allergiesdocumented as of this encounter (statuses as of 03/07/2024) Medications Medication Sig Dispensed Refills Start Date End Date Status /Folic Acid Oral Tablet Take by mouth. 0 Active Aspirin 81 MG Oral Tablet ChewableIndications :High-risk in first trimester Take 1 Tablet by mouth in the morning. 100 Tablet 3 09/14/2023 Active Simperium Flex System w/Device Kit Use to test blood sugars 4 times daily (fasting, 1 hour after breakfast, lunch, and dinner) 1 Kit 0 09/17/2023 Active MOON WearablesTouch Verio In Vitro Strip (Glucose Blood) Use to test blood sugars 4 times daily (fasting, 1 hour after breakfast, lunch, and dinner) 125 Strip 6 09/17/2023 Active MOON WearablesTouch Delica Lancets 30G Use to test blood [...] as of this encounter (statuses as of 03/07/2024) Active Problems Problem Noted Date Diagnosed Date [...] after meal values are < 140 09/23/23: M ADAPT consult complete. Enrolled in [facility]. Instructions provided to report blood sugars each week for MFM review 09/27/23: RPM elevated fasting and PP values; recommend follow up ADAPT; message sent to scheduling. 09/29/23: ADAPT visit complete; elevated FBS and some PP; ordered Basaglar 10 units at bedtime 10/04/23- elevated sugars message sent to MANAGER OF ADMINISTRATION 10/04/23: RPM increase to Basaglar 20 units [...] 11/22/23-stable 11/30/23- elevated fastings msg sent to MANAGER OF ADMINISTRATION 11/30/23: RPM reviewed; elevated FBS; continue Basaglar 10 units with breakfast and increase to 25 units at bedtime 12/06/23: RPM reviewed. Elevated FBS and after dinner values. Continue Basaglar 10 units with breakfast for now; increase to 30 units at bedtime. 12/13/2023- elevations in FBS sent to MANAGER OF ADMINISTRATION 12/13/23: RPM increase to Basaglar 10 units with breakfast and 40 units at bedtime 12/20/2336-vfgiqq-ufoj missing sugars- will msg pt 12/27/23- stable- missing numbers- will review again next week 01/03/24: RPM message sent requesting updated blood sugars 01/10/24: has not entered blood sugars into [facility] since 12/29/23. Message to [facility] to assist patient with scheduling [...] has return visit scheduled this afternoon. 02/02/24: [facility] called patient on 01/16, 01/18, 01/24, 01/30 and today 02/01. Also sent MyG on 01/18, 01/25 and 01/30 to schedule ADAPT FU. No response from patient thus far. Telephone encounter routed to OB team. 02/07/24: RPM reviewed, no readings reported. Pt sent message that CH aline isn't working for her. Gave logs to OB. I reviewed the logs in the [employer] media portion of [employer]. FBS and after dinner elevated. Advised that [...] today 03/06/24: No show to ADAPT visit; [facility] to assist patient with rescheduling Last Assessment & Plan: Working with ADAPT. [...] 130/84 08/18/23 128/78 05/31/23 118/80 02/16/22 116/80 01/29/20 110/64 11/10/19 108/64 12/18/14 132/68 12/03/14 112/70 [...] as of this encounter (statuses as of 03/07/2024) Resolved Problems Problem Noted Date Diagnosed Date Resolved Date with 13 completed weeks gestation 09/23/2023 09/23/2023 Glucose intolerance of 09/14/2023 09/21/2023 Overview: Elevated early 1 hr - 3 hr GTT ordered , normal first 02/09/201408/25 Overview: 05/30/2014 Tdap Vaccine administered per clinic protocol. Pt given VIS(vaccine information sheet) Flower Armstrong, [place]ILAN[place] Elevated 1 hour GTT: 146 3 hour GTT: normal. Patient declines flu vaccine. 08/02/2014 Raven Cutler RN NO KNOWN PROBLEMS 02/09/2014 documented as of this encounter (statuses as of 03/07/2024) Immunizations Name Administration Dates Next Due HPV [...] money to get more. Never true 11/07/2023 [place] Depression Scale Answer Date Recorded [place] Depression Scale Total 2 01/13/2024 The thought [...] on file documented as of this encounter Miscellaneous Notes * Telephone Encounter - Chanel Tejada OSA - 03/07/2024 8:53 AM EDT Phone call to patient. Left message on [employer]'s voice mail. [facility] * Telephone Encounter - Chanel Tejada OSA - 03/07/2024 8:53 AM EDT ----- Message from TAMIKO Nevarez sent at 03/06/2024 5:25 PM EDT ----- Regarding: no show to ADAPT Patient no showed to ADAPT visit. Please assist patient with rescheduling follow-up ADAPT visit. Thanks! Estela documented in this encounter Plan of Treatment Upcoming Encounters Date Type Department Care Team (Late st Contact Info) Description 03/09/2024 10:15 AM EDT Office Visit Gynecology/Obstetrics Venessa Marin [address] [place] [address] Stephanie Tamayo CRNP [address] [place] [address] [place] Non Stress Tests Dave [place] [place] [address] 03/09/2024 11:00 AM EDT Imaging Maternal Medicine Imaging, Dave Marin [address] [place] [phone] 03/13/2024 1:15 PM EDT Office Visit Gynecology/Obstetrics Venessa Marin [address] [place] [address] Leena Mccarthy CRNP [address] [place] [address] [place], Non Stress Tests Dave [address] [place] [address] 03/16/2024 1:45 PM EDT Office Visit Gynecology/Obstetrics Venessa Marin [address] [place] [address] Backer, TAMIKO Ford [address] [place] [address] Tomas, Non Stress Tests Dave [address] [place] [address] Health Maintenance Due Date Last Done Comments [...] Not on filedocumented as of this encounter Care Teams Pay Station Collector Relationship Specialty Start Date End Date Marquez Jasmine PA-C [address] [place] [phone] PCP - General Physician Property And Casualty Insurance Agent 11/02/14 documented as of this encounter
--- OUTSIDE RECORDS SUMMARY | 2024-03-21 07:49 | External Medical Summary | Summary of Care ---
Author Name Unknown Organization [facility] Address [address] [place] [address] Phone [phone] Care Team Providers Care Forensic Anthropologist Name Role Phone Marquez Jasmine PA-C Primary Care Provider Encounter Details Date Type Department Care Team (Late st Contact Info) Description 03/07/2024 Telephone Mixing Machine Attendant Obstetrics Maternal Medicine, [place] [address] [place], [place] [phone] [place], Nurse Mixing Machine Attendant [facility] [address] [place], [place] [phone] Allergies No known active allergiesdocumented as of this encounter (statuses as of 03/08/2024) Medications Medication Sig Dispensed Refills Start Date End Date Status /Folic Acid Oral Tablet Take by mouth. 0 Active Aspirin 81 MG Oral Tablet ChewableIndications :High-risk in first trimester Take 1 Tablet by mouth in the morning. 100 Tablet 3 09/14/2023 Active Wellcore Flex System w/Device Kit Use to test blood sugars 4 times daily (fasting, 1 hour after breakfast, lunch, and dinner) 1 Kit 0 09/17/2023 Active LTN Global CommunicationsTouch Verio In Vitro Strip (Glucose Blood) Use to test blood sugars 4 times daily (fasting, 1 hour after breakfast, lunch, and dinner) 125 Strip 6 09/17/2023 Active LTN Global CommunicationsTouch Delica Lancets 30G Use to test blood [...] as of this encounter (statuses as of 03/08/2024) Active Problems Problem Noted Date Diagnosed Date [...] bedtime 10/04/23- elevated sugars message sent to SEMICONDUCTOR ASSEMBLER 10/04/23: RPM increase to Basaglar 20 units [...] 11/22/23-stable 11/30/23- elevated fastings msg sent to SEMICONDUCTOR ASSEMBLER 11/30/23: RPM reviewed; elevated FBS; continue Basaglar 10 units with breakfast and increase to 25 units at bedtime 12/06/23: RPM reviewed. Elevated FBS and after dinner values. Continue Basaglar 10 units with breakfast for now; increase to 30 units at bedtime. 12/13/2023- elevations in FBS sent to SEMICONDUCTOR ASSEMBLER 12/13/23: RPM increase to Basaglar 10 units with breakfast and 40 units at bedtime 12/20/2321-wjcpuj-bhbd missing sugars- will msg pt 12/27/23- stable- missing numbers- will review again next week 01/03/24: RPM message sent requesting updated blood sugars 01/10/24: has not entered blood sugars into [facility] since 12/29/23. Message to [facility] to assist patient with scheduling [...] has return visit scheduled this afternoon. 02/02/24: [facility] called patient on 01/16, 01/18, 01/24, 01/30 and today 02/01. Also sent MyG on 01/18, 01/25 and 01/30 to schedule ADAPT FU. No response from patient thus far. Telephone encounter routed to OB team. 02/07/24: RPM reviewed, no readings reported. Pt sent message that CH aline isn't working for her. Gave logs to OB. I reviewed the logs in the [employer] media portion of [employer]. FBS and after dinner elevated. Advised that [...] today 03/06/24: No show to ADAPT visit; [facility] to assist patient with rescheduling [...] as of this encounter (statuses as of 03/08/2024) Resolved Problems Problem Noted Date Diagnosed Date [...] as of this encounter (statuses as of 03/08/2024) Immunizations Name Administration Dates Next Due DTP [...] money to get more. Never true 11/07/2023 [place] Depression Scale Answer Date Recorded [place] Depression Scale Total 2 01/13/2024 The thought [...] encounter Miscellaneous Notes * Telephone Encounter - Shelley Washburn OSA - 03/08/2024 8:35 AM EDT Phone call to patient. Left message on [employer] voice mail. Encouraged patient to return call to [facility] assist with scheduling. * Telephone Encounter - Cahnel Tejada OSA - 03/07/2024 8:53 AM EDT Phone call to patient. Left message on [employer] voice mail. Encouraged patient to return call to [facility] assist with scheduling. * Telephone Encounter - [...] Visit Gynecology/Obstetrics Venessa Marin [address] [place], [place] [address] Stephanie Tamayo CRNP [address] [place] [address] Shaylee Marin Stress [place] [address] 03/09/2024 11:00 AM EDT Imaging Maternal Medicine Imaging, [place] [address] [place] [phone] 03/09/2024 11:00 AM EDT Office Visit Mixing Machine Attendant Obstetrics Maternal Medicine, Dave [address] [place] [address] Jacqueline Leal, DO [address] [place] [address] 03/13/2024 1:15 PM EDT Office Visit Gynecology/Obstetrics Venessa Marin [address] [place] [address] Leena Mccarthy CRNP [address] [place] [address] Shaylee Marin Stress Tests Dave [address] [place] [address] 03/16/2024 1:45 PM EDT Office Visit Gynecology/Obstetrics Venessa Marin [address] [place] [address] Leena Mccarthy CRNP [address] [place] [address] [place], Non Stress Tests Dave [address] [facility] [place] [address] Health Maintenance Due Date Last Done Comments [...] filedocumented as of this encounter Care Teams Forensic Anthropologist Relationship Specialty Start Date End Date Marquez Jasmine PA-C [address] [place] [phone] PCP - General Physician Human Services Manager 11/02/14 documented as of this encounter
--- OUTSIDE RECORDS SUMMARY | 2024-03-21 07:49 | External Medical Summary | Summary of Care ---
Author Name Unknown Organization [facility] Address [address] [place] [address] Phone [phone] Care Team Providers Care Social Sciences Chair Name Role Phone Marquez Jasmine PA-C Primary Care Provider Encounter Details Date Type Department Care Team (Late st Contact Info) Description 03/09/2024 11:00 AM EDT Office Visit Bowling Ball Finisher Obstetrics Maternal Medicine, [facility] [address] [place] [address] Jacqueline Leal, DO [address] [place] [address] Single umbilical artery, maternal, antepartum*; Obesity in [...] the morning. 100 Tablet 3 09/14/2023 Active KAI Pharmaceuticalsio Flex System w/Device Kit Use to test blood sugars 4 times daily (fasting, 1 hour after breakfast, lunch, and dinner) 1 Kit 0 09/17/2023 Active LuxteraTouch Verio In Vitro Strip (Glucose Blood) Use [...] bedtime 10/04/23- elevated sugars message sent to SPRAY OPERATOR 10/04/23: RPM increase to Basaglar 20 units [...] 11/22/23-stable 11/30/23- elevated fastings msg sent to SPRAY OPERATOR 11/30/23: RPM reviewed; elevated FBS; continue Basaglar 10 units with breakfast and increase to 25 units at bedtime 12/06/23: RPM reviewed. Elevated FBS and after dinner values. Continue Basaglar 10 units with breakfast for now; increase to 30 units at bedtime. 12/13/2023- elevations in FBS sent to SPRAY OPERATOR 12/13/23: RPM increase to Basaglar 10 units with breakfast and 40 units at bedtime 12/20/2337-pjzirq-wwlv missing sugars- will msg pt 12/27/23- stable- missing numbers- will review again next week 01/03/24: RPM message sent requesting updated blood sugars 01/10/24: has not entered blood sugars into [facility] since 12/29/23. Message to [facility] to assist patient with scheduling [...] has return visit scheduled this afternoon. 02/02/24: [facility] called patient on 01/16, 01/18, 01/24, 01/30 and today 02/01. Also sent MyG on 01/18, 01/25 and 01/30 to schedule ADAPT FU. No response from patient thus far. Telephone encounter routed to OB team. 02/07/24: RPM reviewed, no readings reported. Pt sent message that aline isn't working for her. Gave logs to OB. I reviewed the logs in the [employer] media portion of [employer]. FBS and after dinner elevated. Advised that [...] today 03/06/24: No show to ADAPT visit; [facility] to assist patient with rescheduling Last Assessment & Plan: Working with ADAPT however, did not attend recent appointment and needs to reschedule KEENAN as not submitting sugars. Please encourage her to return call to [facility]. , supervision, high-risk 08/18/2023 Obesity in [...] 03/09/2024) Immunizations Name Administration Dates Next Due HPV [...] money to get more. Never true 11/07/2023 [place] Depression Scale Answer Date Recorded [place] Depression Scale Total 2 01/13/2024 The thought [...] of this encounter Progress Notes * Jacqueline Leal DO - 03/09/2024 11:13 AM EDT Chio presented today at 37w3d for an ultrasound for the following indications: Single umbilical artery, maternal, antepartum Obesity in , antepartum Insulin controlled gestational diabetes mellitus (GDM) during , antepartum Assessment & Plan: Working with ADAPT however, did not attend recent appointment and needs to reschedule KEENAN as not submitting sugars. Please encourage her to return call to [facility]. Ultrasound for screening for growth restriction [...] Please encourage her to return call to MFM. documented in this encounter Plan of Treatment Upcoming Encounters Date Type Department Care Team (Late st Contact Info) Description 03/13/2024 1:15 PM EDT Office Visit Gynecology/Obstetrics Venessa Zhangs [address] [place] [address] Leena Mccarthy CRNP [address] [place] [address] [place], Non Stress Tests Dave [address] [place] [address] 03/16/2024 1:45 PM EDT Office Visit Gynecology/Obstetrics Davidrosibel [place] [address] [place] [address] Leena Mccarthy CRNP [address] [place] [address] [place] Non Stress Tests Dave [address] [place] [address] Health Maintenance Due Date Last Done Comments [...] incidental documented in this encounter Care Teams Social Sciences Chair Relationship Specialty Start Date End Date Marquez Jasmine PA-C [address] [place] [address] PCP - General Physician Berry Picker 11/02/14 documented as of this encounter
--- OUTSIDE RECORDS SUMMARY | 2024-03-21 07:49 | External Medical Summary | Summary of Care ---
Author Name Unknown Organization [facility] Address [address] [place] [address] Phone [phone] Care Team Providers Care Medical Education Specialist Name Role Phone Marquez Jasmine PA-C Primary Care Provider Encounter Details Date Type Department Care Team (Late st Contact Info) Description 03/09/2024 Telephone Therapist Physical Obstetrics Maternal Medicine, [place] [address], [place] [phone] [place], Nurse Therapist Physical [facility] [address], [place] [phone] Allergies No known active allergiesdocumented as of this encounter (statuses as of 03/09/2024) Medications Medication Sig Dispensed Refills Start Date End Date Status /Folic Acid Oral Tablet Take by mouth. 0 Active Aspirin 81 MG Oral Tablet ChewableIndications: High-risk in first trimester Take 1 Tablet by mouth in the morning. 100 Tablet 3 09/14/2023 Active Plandree Flex System w/Device Kit Use to test blood sugars 4 times daily (fasting, 1 hour after breakfast, lunch, and dinner) 1 Kit 0 09/17/2023 Active MoneyLionTouch Verio In Vitro Strip (Glucose Blood) Use to test blood sugars 4 times daily (fasting, 1 hour after breakfast, lunch, and dinner) 125 Strip 6 09/17/2023 Active MoneyLionTouch Delica Lancets 30G Use to test blood [...] to report blood sugars each week for MF review 09/27/23: RPM elevated fasting and PP values; recommend follow up ADAPT; message sent to scheduling. 09/29/23: ADAPT visit complete; elevated FBS and some PP; ordered Basaglar 10 units at bedtime 10/04/23- elevated sugars message sent to WAITER/WAITRESS INFORMAL 10/04/23: RPM increase to Basaglar 20 units [...] 11/22/23-stable 11/30/23- elevated fastings msg sent to WAITER/WAITRESS INFORMAL 11/30/23: RPM reviewed; elevated FBS; continue Basaglar 10 units with breakfast and increase to 25 units at bedtime 12/06/23: RPM reviewed. Elevated FBS and after dinner values. Continue Basaglar 10 units with breakfast for now; increase to 30 units at bedtime. 12/13/2023- elevations in FBS sent to WAITER/WAITRESS INFORMAL 12/13/23: RPM increase to Basaglar 10 units with breakfast and 40 units at bedtime 12/20/2356-yighdr-erdg missing sugars- will msg pt 12/27/23- stable- missing numbers- will review again next week 01/03/24: RPM message sent requesting updated blood sugars 01/10/24: has not entered blood sugars into [facility] since 12/29/23. Message to [facility] to assist patient with scheduling [...] has return visit scheduled this afternoon. 02/02/24: Aminah PARs called patient on 01/16, 01/18, 01/24, 01/30 and today 02/01. Also sent MyG on 01/18, 01/25 and 01/30 to schedule ADAPT FU. No response from patient thus far. Telephone encounter routed to OB team. 02/07/24: RPM reviewed, no readings reported. Pt sent message that CH aline isn't working for her. Gave logs to OB. I reviewed the logs in the [employer] portion of [employer]. FBS and after dinner elevated. Advised that [...] today 03/06/24: No show to ADAPT visit; Aminah INIGUEZ to assist patient with rescheduling Last Assessment & Plan: Working with ADAPT however, did not attend recent appointment and needs to reschedule KEENAN as not submitting sugars. Please encourage her to return call to [facility]. , supervision, high-risk 08/18/2023 Obesity in [...] money to get more. Never true 11/07/2023 Pickton Depression Scale Answer Date Recorded Pickton Depression Scale Total 2 01/13/2024 The thought [...] Telephone Encounter - Chanel Tejada OSA - 03/09/2024 1:05 PM EDT Phone call to patient. Left message on [employer]'s voice mail. [facility] * Telephone Encounter - Chanel Tejada OSA - 03/09/2024 1:05 PM EDT ----- Message from Fabio Downey RN sent at 03/09/2024 12:58 PM EDT ----- Regarding: please schedule pt for next available adapt f/u--thanks documented in this encounter Plan of Treatment Upcoming Encounters Date Type Department Care Team (Late st Contact Info) Description 03/13/2024 1:15 PM EDT Office Visit Gynecology/Obstetrics [facility] [place] [address] [place] [address] Leena Mccarthy CRNP [address] [place] [address] T[place] Non Stress Tests Dave [address] [place] [address] 03/16/2024 1:45 PM EDT Office Visit Gynecology/Obstetrics [facility] [place] [address] [place] [address] Leena Mccarthy CRNP [address] [place] [address] Tomas Non Stress Tests Dave [address] [place] [address] Health Maintenance Due Date Last Done Comments [...] filedocumented as of this encounter Care Teams Medical Education Specialist Relationship Specialty Start Date End Date Marquez Jasmine PA-C [address] [place] [phone] PCP - General Physician Car Wash Supervisor 11/02/14 documented as of this encounter
--- OUTSIDE RECORDS SUMMARY | 2024-03-21 07:49 | External Medical Summary | Summary of Care ---
Author Name Unknown Organization [facility] Address [address] [place] [address] Phone [phone] Care Team Providers Care Operations Examiner Name Role Phone Marquez Jasmine PA-C Primary Care Provider Reason for Visit * Reason Comments Non Stress Test Encounter Details Date Type Department Care Team ([facility] st Contact Info) Description 03/06/2024 9:45 AM EDT Office Visit Gynecology/Obstetric s [facility] [address] [facility] [address] Ina Paula, [place] [address] [place] [address] [place], Non Stress Tests Dave [facility] [address] Supervision of high risk in third trimester*; [...] the morning. 100 Tablet 3 09/14/2023 Active Bizen Flex System w/Device Kit Use to test blood sugars 4 times daily (fasting, 1 hour after breakfast, lunch, and dinner) 1 Kit 0 09/17/2023 Active [employer]emo[employer] In Vitro Strip (Glucose Blood) Use to test blood sugars 4 times daily (fasting, 1 hour after breakfast, lunch, and dinner) 125 Strip 6 09/17/2023 Active [employer] M[employer] Delica Lancets 30G Use to test blood [...] bedtime 10/04/23- elevated sugars message sent to DIRECTOR OF OFFICIATING 10/04/23: RPM increase to Basaglar 20 units [...] 11/22/23-stable 11/30/23- elevated fastings msg sent to DIRECTOR OF OFFICIATING 11/30/23: RPM reviewed; elevated FBS; continue Basaglar 10 units with breakfast and increase to 25 units at bedtime 12/06/23: RPM reviewed. Elevated FBS and after dinner values. Continue Basaglar 10 units with breakfast for now; increase to 30 units at bedtime. 12/13/2023- elevations in FBS sent to DIRECTOR OF OFFICIATING 12/13/23: RPM increase to Basaglar 10 units with breakfast and 40 units at bedtime 12/20/2323-laxuhn-tbbf missing sugars- will msg pt 12/27/23- stable- missing numbers- will review again next week 01/03/24: RPM message sent requesting updated blood sugars 01/10/24: has not entered blood sugars into [facility] since 12/29/23. Message to [facility] to assist patient with scheduling [...] has return visit scheduled this afternoon. 02/02/24: [facility] called patient on 01/16, 01/18, 01/24, 01/30 and today 02/01. Also sent MyG on 01/18, 01/25 and 01/30 to schedule ADAPT FU. No response from patient thus far. Telephone encounter routed to OB team. 02/07/24: RPM reviewed, no readings reported. Pt sent message that aline isn't working for her. Gave logs to OB. I reviewed the logs in the [employer] media portion of [employer]. FBS and after dinner elevated. Advised that [...] 03/06/2024) Immunizations Name Administration Dates Next Due DTP [...] money to get more. Never true 11/07/2023 [employer] Depression Scale Answer Date Recorded [employer] Depression Scale Total 2 01/13/2024 The thought [...] Sign Reading Time Taken Comments Blood Pressure 116/68 03/06/2024 9:34 AM EDT Pulse - - Temperature - - [...] Accelerations: present Contractions: None NST start time: 09 NST stop time: 09 NST strip reviewed, interpreted, and approved by [...] Info) Description 03/06/2024 3:00 PM EDT Telemedicine Dumbwaiter Operator Obstetrics Maternal Medicine, [address] [address] Estela Herrera CRNP [address] [place] [address] 03/09/2024 10:15 AM EDT Office Visit Gynecology/Obstetrics [facility] [address] [place] [address] Stephanie Tamayo CRNP [address] [place] [address] [place], Non Stress Tests Dave [address] [place] [address] 03/09/2024 11:00 AM EDT Imaging Maternal Medicine Imaging, Dave Marin [address] [place] [address] 03/13/2024 1:15 PM EDT Office Visit Gynecology/Obstetrics [facility] [address] [place] [address] Leena Mccarthy CRNP [address] [place] [address] [place], Non Stress Tests Dave [address] [place] [address] 03/16/2024 1:45 PM EDT Office Visit Gynecology/Obstetrics [facility] [place] [address] [place] [address] [place], TAMIKO Ford [address] [place] [address] Tomas, Non Stress Tests Dave [address] [place] [address] Health Maintenance Due Date Last Done Comments [...] antepartum documented in this encounter Care Teams Operations Examiner Relationship Specialty Start Date End Date Marquez Jasmine PA-C [address] [place] [address] PCP - General Physician Glass Enamel Mixer 11/02/14 documented as of this encounter
--- OUTSIDE RECORDS SUMMARY | 2024-03-21 07:49 | External Medical Summary | Summary of Care ---
Author Name Unknown Organization [facility] Address [address] [place] [address] Phone [phone] Care Team Providers Care Food Services Manager Name Role Phone Marquez Jasmine PA-C Primary Care Provider Encounter Details Date Type Department Care Team (Late st Contact Info) Description 03/09/2024 Telephone Online Banking Specialist Obstetrics Maternal Medicine, [place] [address], [place] [phone] [place], Nurse Online Banking Specialist [facility] [address], [place] [phone] Allergies No known active allergiesdocumented as of this encounter (statuses as of 03/09/2024) Medications Medication Sig Dispensed Refills Start Date End Date Status /Folic Acid Oral Tablet Take by mouth. 0 Active Aspirin 81 MG Oral Tablet ChewableIndications: High-risk in first trimester Take 1 Tablet by mouth in the morning. 100 Tablet 3 09/14/2023 Active China PharmaHub Flex System w/Device Kit Use to test blood sugars 4 times daily (fasting, 1 hour after breakfast, lunch, and dinner) 1 Kit 0 09/17/2023 Active VenueBookTouch Verio In Vitro Strip (Glucose Blood) Use to test blood sugars 4 times daily (fasting, 1 hour after breakfast, lunch, and dinner) 125 Strip 6 09/17/2023 Active VenueBookTouch Delica Lancets 30G Use to test blood [...] bedtime 10/04/23- elevated sugars message sent to ACADEMIC AFFAIRS MANAGER 10/04/23: RPM increase to Basaglar 20 [...] 11/22/23-stable 11/30/23- elevated fastings msg sent to ACADEMIC AFFAIRS MANAGER 11/30/23: RPM reviewed; elevated FBS; continue Basaglar 10 units with breakfast and increase to 25 units at bedtime 12/06/23: RPM reviewed. Elevated FBS and after dinner values. Continue Basaglar 10 units with breakfast for now; increase to 30 units at bedtime. 12/13/2023- elevations in FBS sent to ACADEMIC AFFAIRS MANAGER 12/13/23: RPM increase to Basaglar 10 units with breakfast and 40 units at bedtime 12/20/2384-gwgcyg-odmd missing sugars- will msg pt 12/27/23- stable- missing numbers- will review again next week 01/03/24: RPM message sent requesting updated blood sugars 01/10/24: has not entered blood sugars into [facility] since 12/29/23. Message to [facility] to assist patient with scheduling FU [...] OB. I reviewed the logs in the [employer] portion of [employer]. FBS and after dinner elevated. Advised that [...] Please encourage her to return call to [facility]. , supervision, high-risk 08/18/2023 Obesity in , [...] money to get more. Never true 11/07/2023 Townsend Depression Scale Answer Date Recorded Townsend Depression Scale Total 2 01/13/2024 The thought [...] Phone call to patient. Left message on [employer]'s voice mail. [facility] * Telephone Encounter - [...] Gynecology/Obstetrics [facility] [place] [address] [place] [address] Leena Mccarthy CRNP [address] [place] [address] [place] Non Stress Tests Dave [address] [place] [address] 03/16/2024 1:45 PM EDT Office Visit Gynecology/Obstetrics [facility] [place] [address] [place] [address] Leena Mccarthy CRNP [address] [place] [address] [place] Non Stress Tests Dave [address] [place] [address] Health Maintenance Due Date Last Done Comments [...] filedocumented as of this encounter Care Teams Food Services Manager Relationship Specialty Start Date End Date Marquez Jasmine PA-C [address] [place] [address] PCP - General Physician Glassware Maker 11/02/14 documented as of this encounter
--- OUTSIDE RECORDS SUMMARY | 2024-03-21 07:49 | External Medical Summary | Summary of Care ---
Author Name Unknown Organization [facility] Address [address] [place] [address] Phone [phone] Care Team Providers Care Echo Technician Name Role Phone Marquez Jasmine PA-C Primary Care Provider Encounter Details Date Type Department Care Team (Late st Contact Info) Description 03/07/2024 Telephone Automatic Car Wash Attendant Obstetrics Maternal Medicine, [place] [address] [place], [place] [phone] [place], Nurse Automatic Car Wash Attendant [employer] [address] [place], [place] [phone] Allergies No known active allergiesdocumented as of this encounter (statuses as of 03/07/2024) Medications Medication Sig Dispensed Refills Start Date End Date Status /Folic Acid Oral Tablet Take by mouth. 0 Active Aspirin 81 MG Oral Tablet ChewableIndications :High-risk in first trimester Take 1 Tablet by mouth in the morning. 100 Tablet 3 09/14/2023 Active Optensity Flex System w/Device Kit Use to test blood sugars 4 times daily (fasting, 1 hour after breakfast, lunch, and dinner) 1 Kit 0 09/17/2023 Active Penthera PartnersTouch Verio In Vitro Strip (Glucose Blood) Use to test blood sugars 4 times daily (fasting, 1 hour after breakfast, lunch, and dinner) 125 Strip 6 09/17/2023 Active Penthera PartnersTouch Delica Lancets 30G Use to test blood [...] bedtime 10/04/23- elevated sugars message sent to AUDIOVISUAL AIDS TECHNICIAN 10/04/23: RPM increase to Basaglar 20 units [...] 11/22/23-stable 11/30/23- elevated fastings msg sent to AUDIOVISUAL AIDS TECHNICIAN 11/30/23: RPM reviewed; elevated FBS; continue Basaglar 10 units with breakfast and increase to 25 units at bedtime 12/06/23: RPM reviewed. Elevated FBS and after dinner values. Continue Basaglar 10 units with breakfast for now; increase to 30 units at bedtime. 12/13/2023- elevations in FBS sent to AUDIOVISUAL AIDS TECHNICIAN 12/13/23: RPM increase to Basaglar 10 units with breakfast and 40 units at bedtime 12/20/2391-qbuybi-znmv missing sugars- will msg pt 12/27/23- stable- missing numbers- will review again next week 01/03/24: RPM message sent requesting updated blood sugars 01/10/24: has not entered blood sugars into [facility] since 12/29/23. Message to [facility] to assist patient with [...] has return visit scheduled this afternoon. 02/02/24: [facility] PARs called patient on 01/16, 01/18, 01/24, 01/30 and today 02/01. Also sent MyG on 01/18, 01/25 and 01/30 to schedule ADAPT FU. No response from patient thus far. Telephone encounter routed to OB team. 02/07/24: RPM reviewed, no readings reported. Pt sent message that CH aline isn't working for her. Gave logs to OB. I reviewed the logs in the [employer] media portion of [employer]. FBS and after dinner elevated. Advised that [...] today 03/06/24: No show to ADAPT visit; [facility] to assist patient with rescheduling Last [...] Pt given VIS(vaccine information sheet) Flower Armstrong, CHIALNGO Elevated 1 hour GTT: 146 3 hour [...] money to get more. Never true 11/07/2023 Dalton Depression Scale Answer Date Recorded Dalton Depression Scale Total 2 01/13/2024 The thought [...] Phone call to patient. Left message on [employer]'s voice mail. [facility]. * Telephone [...] [facility] [address] [place] [address] Stephanie Tamayo CRNP [address] [place] [address] Shaylee Marin Stress Tests Dave [address] [place] [address] 03/09/2024 11:00 AM EDT Imaging Maternal Medicine Imaging, Dave [place] [address] [place] [address] 03/09/2024 11:00 AM EDT Office Visit Automatic Car Wash Attendant Obstetrics Maternal Medicine, [place] [address] [place] [address] Jacqueline Leal, DO [address] [place] [address] 03/13/2024 1:15 PM EDT Office Visit Gynecology/Obstetrics [facility] [place] [address] [place] [address] Leena Mccarthy CRNP [address] [place] [address] [place] Non Stress Tests Dave [address] [place] [address] 03/16/2024 1:45 PM EDT Office Visit Gynecology/Obstetrics [facility] [place] [address] [place] [address] Leena Mccarthy CRNP [address] [place] [address] Shaylee Marin Stress Tests Dave [address] [place] [address] Health Maintenance Due Date Last Done Comments [...] filedocumented as of this encounter Care Teams Echo Technician Relationship Specialty Start Date End Date Marquez Jasmine PA-C [address] [place] [address] PCP - General Physician Mental Health Specialist 11/02/14 documented as of this encounter
--- OUTSIDE RECORDS SUMMARY | 2024-03-21 07:49 | External Medical Summary | Summary of Care ---
Author Name Unknown Organization [facility] Address [address] [place] [address] Phone [phone] Care Team Providers Care Global President Name Role Phone Marquez Jasmine PA-C Primary Care Provider Reason for Visit * Reason Onset Date Comments Test Results 03/03/2024 Encounter Details Date Type Department Care Team (Late st Contact Info) Description 03/03/2024 Telephone Gynecology/Obstetrics [facility] 132 [facility] [place] [address] Estela Ospina PA-C [address] [place] [address] Test Results Allergies No known active allergiesdocumented as of this encounter (statuses as of 03/03/2024) Medications Medication Sig Dispensed Refills Start Date End Date Status /Folic Acid Oral Tablet Take by mouth. 0 Active Aspirin 81 MG Oral Tablet ChewableIndications :High-risk in first trimester Take 1 Tablet by mouth in the morning. 100 Tablet 3 09/14/2023 Active [employer] / TLLTouch Verio Flex System w/Device Kit Use to test blood sugars 4 times daily (fasting, 1 hour after breakfast, lunch, and dinner) 1 Kit 0 09/17/2023 Active [employer] / TLLTouch Verio In Vitro Strip (Glucose Blood) Use [...] as of this encounter (statuses as of 03/03/2024) Active Problems Problem Noted Date Diagnosed Date [...] bedtime 10/04/23- elevated sugars message sent to LEATHER SKINNER 10/04/23: RPM increase to Basaglar 20 units [...] 11/22/23-stable 11/30/23- elevated fastings msg sent to LEATHER SKINNER 11/30/23: RPM reviewed; elevated FBS; continue Basaglar 10 units with breakfast and increase to 25 units at bedtime 12/06/23: RPM reviewed. Elevated FBS and after dinner values. Continue Basaglar 10 units with breakfast for now; increase to 30 units at bedtime. 12/13/2023- elevations in FBS sent to LEATHER SKINNER 12/13/23: RPM increase to Basaglar 10 units with breakfast and 40 units at bedtime 12/20/2319-auchkx-cili missing sugars- will msg pt 12/27/23- stable- missing numbers- will review again next week 01/03/24: RPM message sent requesting updated blood sugars 01/10/24: has not entered blood sugars into [facility] since 12/29/23. Message to [facility] to assist patient with scheduling [...] has return visit scheduled this afternoon. 02/02/24: [facility] called patient on 01/16, 01/18, 01/24, 01/30 and today 02/01. Also sent MyG on 01/18, 01/25 and 01/30 to schedule ADAPT FU. No response from patient thus far. Telephone encounter routed to OB team. 02/07/24: RPM reviewed, no readings reported. Pt sent message that CH aline isn't working for her. Gave logs to OB. I reviewed the logs in the [employer] portion of [employer]. FBS and after dinner elevated. Advised that [...] as of this encounter (statuses as of 03/03/2024) Resolved Problems Problem Noted Date Diagnosed Date [...] as of this encounter (statuses as of 03/03/2024) Immunizations Name Administration Dates Next Due HPV [...] money to get more. Never true 11/07/2023 Bruin Depression Scale Answer Date Recorded Bruin Depression Scale Total 2 01/13/2024 The thought [...] encounter Miscellaneous Notes * Telephone Encounter - Amena Woods LPN - 03/03/2024 2:00 PM EDT Sent myg * Telephone Encounter - Amena Woods LPN - 03/03/2024 1:59 PM EDT ----- Message from Estela Ospina PA-C sent at 03/03/2024 1:33 PM EDT ----- Please let patient know her vaginosis panel and urine culture were negative for infection. No treatment is indicated at this time. We can continue to monitor. Thanks! Estela Ospina PA-C documented in this encounter Plan of Treatment Upcoming Encounters Date Type Department Care Team (Late st Contact Info) Description 03/06/2024 1:15 PM EDT Office Visit Gynecology/Obstetrics [facility] [address] [place] [address] Leena Mccarthy CRNP [address] [place] [address] Shaylee Marin Stress Tests Dave [address] [place] [address] 03/06/2024 3:00 PM EDT Telemedicine Computer Application Developer Obstetrics Maternal Medicine, [address] [address] Estela Herrera CRNP [address] [place] [address] 03/09/2024 10:15 AM EDT Office Visit Gynecology/Obstetrics [facility] [address] [place] [address] Stephanie Tamayo CRNP [address] [place], [place] [address] T[place], Non Stress Tests Dave [address] [place], [place] [address] 03/09/2024 11:00 AM EDT Imaging Maternal Medicine Imaging, [place] [phone] 03/13/2024 1:15 PM EDT Office Visit Gynecology/Obstetrics [facility] [place] [address] [place] [address] Leena Mccarthy CRNP [address] [place] [address] Tomas Non Stress Tests Dave [address] [place] [address] 03/16/2024 1:45 PM EDT Office Visit Gynecology/Obstetrics [facility] [place] [address] [place] [address] Leena Mccarthy CRNP [address] [place] [address] Tomas Non Stress Tests [place] [address] Health Maintenance Due Date Last Done Comments [...] filedocumented as of this encounter Care Teams Global President Relationship Specialty Start Date End Date Marquez Jasmine PA-C [address] [place] [phone] PCP - General Physician Car Coupler 11/02/14 documented as of this encounter
--- OUTSIDE RECORDS SUMMARY | 2024-03-21 07:49 | External Medical Summary | Summary of Care ---
Author Name Unknown Organization [facility] Address [address] [place] [address] Phone [phone] Care Team Providers Care Director Student Union Name Role Phone Marquez Jasmine PA-C Primary Care Provider Reason for Visit * Reason Comments Return Visit Encounter Details Date Type Department Care Team (Late st Contact Info) Description 03/09/2024 10:15 AM EDT Office Visit Gynecology/Obstetric s [facility] [address] [facility] [place] [id number] Stephanie Tamayo CRNP [address] [place] [address] [place], Non Stress Tests Dave [address] [place] [address] Supervision of high risk in third trimester*; [...] the morning. 100 Tablet 3 09/14/2023 Active [employer] Verio Flex System w/Device Kit Use to test blood sugars 4 times daily (fasting, 1 hour after breakfast, lunch, and dinner) 1 Kit 0 09/17/2023 Active ValidasTouch Verio In Vitro Strip (Glucose Blood) Use to test blood sugars 4 times daily (fasting, 1 hour after breakfast, lunch, and dinner) 125 Strip 6 09/17/2023 Active [employer] Delica Lancets 30G Use to test [...] bedtime 10/04/23- elevated sugars message sent to BRINELL TESTER 10/04/23: RPM increase to Basaglar 20 units [...] 11/22/23-stable 11/30/23- elevated fastings msg sent to BRINELL TESTER 11/30/23: RPM reviewed; elevated FBS; continue Basaglar 10 units with breakfast and increase to 25 units at bedtime 12/06/23: RPM reviewed. Elevated FBS and after dinner values. Continue Basaglar 10 units with breakfast for now; increase to 30 units at bedtime. 12/13/2023- elevations in FBS sent to BRINELL TESTER 12/13/23: RPM increase to Basaglar 10 units with breakfast and 40 units at bedtime 12/20/2385-xkwtsn-tcyx missing sugars- will msg pt 12/27/23- stable- missing numbers- will review again next week 01/03/24: RPM message sent requesting updated blood sugars 01/10/24: has not entered blood sugars into [facility] since 12/29/23. Message to [facility] to assist patient with scheduling [...] has return visit scheduled this afternoon. 02/02/24: [facility] called patient on 01/16, 01/18, 01/24, 01/30 and today 02/01. Also sent MyG on 01/18, 01/25 and 01/30 to schedule [facility] FU. No response from patient thus far. Telephone encounter routed to OB team. 02/07/24: RPM reviewed, no readings reported. Pt sent message that aline isn't working for her. Gave logs to OB. I reviewed the logs in the [employer] media portion of [employer]. FBS and after dinner elevated. Advised that [...] today 03/06/24: No show to [facility]T visit; [facility] to assist patient with rescheduling Last Assessment & Plan: Working with [facility]T however, did not attend recent appointment and needs to reschedule KEENAN as not submitting sugars. , supervision, high-risk 08/18/2023 Obesity in , [...] money to get more. Never true 11/07/2023 [place] Depression Scale Answer Date Recorded [place] Depression Scale Total 2 01/13/2024 The thought [...] Sign Reading Time Taken Comments Blood Pressure 122/76 03/09/2024 10:39 AM EDT Pulse - - Temperature - - Respiratory Rate - - Oxygen Saturation - - Inhaled Oxygen Concentration - - Weight 108 kg (238 lb) 03/09/2024 10:39 AM EDT Height - - Body Mass Index 42.16 02/21/2024 1:34 PM EDT documented in this encounter Progress Notes * Stephanie Tamayo CRNP - 03/09/2024 10:54 AM EDT 37w3d Has been having contractions every 10-15 minutes for >24 hours, states it feels like bad menstrual cramps. Doing kick counts daily, getting 10 movements in 2 hours. States movements feel more faint, but are present. She denies bleeding or LOF. MFM appt today for growth, BPP 06/01. Following with [facility] for blood sugars, reports values are "great". Maintainability Engineer Documentation Provider requested command center analyst. Name of command center analyst: TAMIKO Douglas * Amy Goldstein LPN - 03/09/2024 10:40 AM EDT 37w3d 10-15 mins ctxs 40-60 secs Worse with movement Would like cervix checked BPP today with MFM 06/01 documented in this encounter Plan of Treatment Upcoming Encounters Date Type Department Care Team (Late st Contact Info) Description 03/13/2024 1:15 PM EDT Office Visit Gynecology/Obstetrics [facility] [address] [place] [address] Leena Mccarthy CRNP [address] [place] [address] Shaylee [place] Stress Tests Dave [address] [place] [address] 03/16/2024 1:45 PM EDT Office Visit Gynecology/Obstetrics [facility] [address] [place] [address] Leena Mccarthy CRNP [address] [place] [address] Shaylee [place] Stress Tests Dave [address] [place] [address] Health Maintenance Due Date Last Done Comments [...] antepartum documented in this encounter Care Teams Director Student Union Relationship Specialty Start Date End Date Marquez Jasmine PA-C [address] [place] [id number] PCP - General Physician Plant Pathologist 11/02/14 documented as of this encounter
--- OUTSIDE RECORDS SUMMARY | 2024-03-21 07:49 | External Medical Summary | Summary of Care ---
Author Name Unknown Organization [facility] Address [address] [place] [address] Phone [phone] Care Team Providers Care Key Account Manager Name Role Phone Marquez Jasmine PA-C Primary Care Provider Encounter Details Date Type Department Care Team (Late st Contact Info) Description 03/07/2024 Telephone Gynecology/Obstetrics [facility] [address] [place] [address] Hernan Gayle MD [address] [place] [address] Allergies No known active allergiesdocumented as of this encounter (statuses as of 03/07/2024) Medications Medication Sig Dispensed Refills Start Date End Date Status /Folic Acid Oral Tablet Take by mouth. 0 Active Aspirin 81 MG Oral Tablet ChewableIndications :High-risk in first trimester Take 1 Tablet by mouth in the morning. 100 Tablet 3 09/14/2023 Active PropancTouch Verio Flex System w/Device Kit Use to test blood sugars 4 times daily (fasting, 1 hour after breakfast, lunch, and dinner) 1 Kit 0 09/17/2023 Active OneTouch Verio In Vitro Strip (Glucose Blood) Use [...] bedtime 10/04/23- elevated sugars message sent to RAILROAD CONDUCTOR 10/04/23: RPM increase to Basaglar 20 units [...] 11/22/23-stable 11/30/23- elevated fastings msg sent to RAILROAD CONDUCTOR 11/30/23: RPM reviewed; elevated FBS; continue Basaglar 10 units with breakfast and increase to 25 units at bedtime 12/06/23: RPM reviewed. Elevated FBS and after dinner values. Continue Basaglar 10 units with breakfast for now; increase to 30 units at bedtime. 12/13/2023- elevations in FBS sent to RAILROAD CONDUCTOR 12/13/23: RPM increase to Basaglar 10 units with breakfast and 40 units at bedtime 12/20/2393-vfgiqw-trgb missing sugars- will msg pt 12/27/23- stable- missing numbers- will review again next week 01/03/24: RPM message sent requesting updated blood sugars 01/10/24: has not entered blood sugars into [facility] since 12/29/23. Message to [facility] to assist patient with scheduling FU [...] has return visit scheduled this afternoon. 02/02/24: [facility] called patient on 01/16, 01/18, 01/24, 01/30 and today 02/01. Also sent MyG on 01/18, 01/25 and 01/30 to schedule [facility] FU. No response from patient thus far. Telephone encounter routed to OB team. 02/07/24: RPM reviewed, no readings reported. Pt sent message that CH aline isn't working for her. Gave logs to OB. I reviewed the logs in the [employer] portion of [employer]. FBS and after dinner elevated. Advised that [...] today 03/06/24: No show to ADAPT visit; [facility] to assist patient with rescheduling Last Assessment [...] to get more. Never true 11/07/2023 [place] Depression Scale Answer Date Recorded [place] Depression Scale Total 2 01/13/2024 The thought [...] encounter Miscellaneous Notes * Telephone Encounter - Flower Armstrong RN - 03/07/2024 3:48 PM EDT Pt has been having tightening of her belly for the past 45 min every 5-10 in. Denies any bleeding. Denies any ROM. Has not tried anything. Well hydrated. Has not been feeling baby move as much today.Advised to go home, lay on left side. Push fluid, try tylenol and monitor baby's movement. If not getting more than 10 movements in 2 hours, should call back or if tightening becomes painful or is closer together. Pt agreeable. documented in this encounter Plan of Treatment Upcoming Encounters Date Type Department Care Team (Late st Contact Info) Description 03/09/2024 10:15 AM EDT Office Visit Gynecology/Obstetrics [facility] [address] [place] [address] Stephanie Tamayo CRNP [address] [place] [address] Shaylee [place] Stress Tests Dave [address] [place] [address] 03/09/2024 11:00 AM EDT Imaging Maternal Medicine Imaging, [facility] [address] [place] [id number] 03/09/2024 11:00 AM EDT Office Visit Drum Sander Setter Obstetrics Maternal Medicine, [facility] [address] [place] [address] Jacqueline Leal, DO [address] [facility] [place] [address] 03/13/2024 1:15 PM EDT Office Visit Gynecology/Obstetrics [facility] [address] [place] [address] Leena Mccarthy CRNP [address] [place] [address] [facility] Stress Tests Dave [address] [place] [address] 03/16/2024 1:45 PM EDT Office Visit Gynecology/Obstetrics [facility] [address] [place] [address] Leena Mccarthy CRNP [address] [place] [address] Shaylee [place] Stress Tests Dave [address] [place] [address] Health Maintenance Due Date Last Done Comments [...] filedocumented as of this encounter Care Teams Key Account Manager Relationship Specialty Start Date End Date Marquez Jasmine PA-C [address] [place] [id number] PCP - General Physician Drain Tile Machine Operator 11/02/14 documented as of this encounter
--- OUTSIDE RECORDS SUMMARY | 2024-03-21 07:49 | External Medical Summary | Summary of Care ---
Author Name Unknown Organization [facility] Address [address] [place] [address] Phone [phone] Care Team Providers Care Disabilities Caregiver Name Role Phone Marquez Jasmine PA-C Primary Care Provider Encounter Details Date Type Department Care Team (Late st Contact Info) Description 03/09/2024 Telephone Urban Planning Professor Obstetrics Maternal Medicine, [place] [address] [place], [place] [phone] [place], Nurse Urban Planning Professor [facility] [address] [place], [place] [phone] Allergies No known active allergiesdocumented as of this encounter (statuses as of 03/13/2024) Medications Medication Sig Dispensed Refills Start Date End Date Status /Folic Acid Oral Tablet Take by mouth. Active Aspirin 81 MG Oral Tablet ChewableIndications: High-risk in first trimester Take 1 Tablet by mouth in the morning. 100 Tablet 3 09/14/2023 Active [employer] Flex System w/Device Kit Use to test blood sugars 4 times daily (fasting, 1 hour after breakfast, lunch, and dinner) 1 Kit 09/17/2023 Active [id number] Verio In Vitro Strip (Glucose Blood) Use to test blood sugars 4 times daily (fasting, 1 hour after breakfast, lunch, and dinner) 125 Strip 6 09/17/2023 Active [employer] Delica Lancets 30G Use to test blood [...] bedtime 10/04/23- elevated sugars message sent to DRYWALL FINISHER 10/04/23: RPM increase to Basaglar 20 units [...] 11/22/23-stable 11/30/23- elevated fastings msg sent to DRYWALL FINISHER 11/30/23: RPM reviewed; elevated FBS; continue Basaglar 10 units with breakfast and increase to 25 units at bedtime 12/06/23: RPM reviewed. Elevated FBS and after dinner values. Continue Basaglar 10 units with breakfast for now; increase to 30 units at bedtime. 12/13/2023- elevations in FBS sent to DRYWALL FINISHER 12/13/23: RPM increase to Basaglar 10 units with breakfast and 40 units at bedtime 12/20/2334-zrxzif-whpy missing sugars- will msg pt 12/27/23- stable- missing numbers- will review again next week 01/03/24: RPM message sent requesting updated blood sugars 01/10/24: has not entered blood sugars into [facility] since 12/29/23. Message to [facility] to assist patient with [...] has return visit scheduled this afternoon. 02/02/24: [facility] PARs called patient on 01/16, 01/18, 01/24, 01/30 and today 02/01. Also sent MyG on 01/18, 01/25 and 01/30 to schedule [facility] FU. No response from patient thus far. Telephone encounter routed to OB team. 02/07/24: RPM reviewed, no readings reported. Pt sent message that CH aline isn't working for her. Gave logs to OB. I reviewed the logs in the [employer] portion of [employer]. FBS and after dinner elevated. Advised that [...] today 03/06/24: No show to ADAPT visit; [facility] to assist patient with rescheduling Last Assessment & Plan: Working with [facility] however, did not attend recent appointment and needs to reschedule KEENAN as not submitting sugars. Please encourage her to return call to [facility]. , supervision, high-risk 08/18/2023 Obesity [...] Last 10 Encounters: 09/14/23 130/84 08/18/23 128/78 08//23 118/80 02/16/22 116/80 11/22/19 110/64 11/10/19 108/64 [...] 03/13/2024) Immunizations Name Administration Dates Next Due DTP [...] money to get more. Never true 11/07/2023 [place] Depression Scale Answer Date Recorded [place] Depression Scale Total 2 01/13/2024 The thought [...] Telephone Encounter - Shelley Washburn OSA - 03/13/2024 8:46 AM EDT Phone call to patient. Left message on Z[employer]'s voice mail. Encouraged patient to return call to [facility] assist with scheduling. * Telephone Encounter - Chanel Tejada OSA - 03/09/2024 1:05 PM EDT Phone call to patient. Left message on [employer]u's voice mail. Encouraged patient to return call to [facility] assist with scheduling. * Telephone Encounter - Chanel Tejada OSA - 03/09/2024 1:05 PM EDT ----- Message from Fabio Downey RN sent at 03/09/2024 12:58 PM EDT ----- Regarding: please schedule pt for next available adapt f/u--thanks documented in this encounter Plan of Treatment Upcoming Encounters Date Type Department Care Team (Late st Contact Info) Description 03/13/2024 1:15 PM EDT Office Visit Gynecology/Obstetrics [facility] [address] [place] [address] BackerLeena CRNP [address] [place] [address] T[place] Non Stress Tests Dave [address] [place] [address] 03/16/2024 1:45 PM EDT Office Visit Gynecology/Obstetrics [facility] [address] [place] [address] BackerLeena CRNP [address] [place] [address] Shaylee [place] Stress Tests Dave [address] [place] [address] Health Maintenance Due Date Last Done Comments [...] filedocumented as of this encounter Care Teams Disabilities Caregiver Relationship Specialty Start Date End Date Marquez Jasmine PA-C [address] [place] [phone] PCP - General Physician Cosmetology Professor 11/02/14 documented as of this encounter
--- OUTSIDE RECORDS SUMMARY | 2024-03-21 07:50 | External Medical Summary | Summary of Care ---
Author Name Unknown Organization [facility] Address [address] [place] [address] Phone [phone] Care Team Providers Care Founder And Chief Executive Officer Name Role Phone Marquez Jasmine PA-C Primary Care Provider Reason for Visit * Reason Comments Non Stress Test Encounter Details Date Type Department Care Team (Late st Contact Info) Description 03/02/2024 10:15 AM EDT Office Visit Gynecology/Obstetric s [facility] [address] [place] [address] Estela Ospina PA-C [address] [place] [id number] [place], Non Stress Tests Dave [address] [facility] [place] [address] Supervision of high risk in third trimester*; Insulin controlled gestational diabetes mellitus (GDM) during , antepartum; Obesity in , antepartum; Single umbilical artery, maternal, antepartum; Maternal asthma complicating ; History of gestational hypertension; Pelvic pain affecting in third trimester, antepartum; Vaginal discharge Allergies No known active allergiesdocumented as of this encounter (statuses as of 03/02/2024) Medications Medication Sig Dispensed Refills Start Date End Date Status /Folic Acid Oral Tablet Take by mouth. 0 Active Aspirin 81 MG Oral Tablet ChewableIndications :High-risk in first trimester Take 1 Tablet by mouth in the morning. 100 Tablet 3 09/14/2023 Active The Switch VerJump or Fall Flex System w/Device Kit Use to test blood sugars 4 times daily (fasting, 1 hour after breakfast, lunch, and dinner) 1 Kit 0 09/17/2023 Active US DataworksTouch Verio In Vitro Strip (Glucose Blood) Use to test blood sugars 4 times daily (fasting, 1 hour after breakfast, lunch, and dinner) 125 Strip 6 09/17/2023 Active The Switch Delica Lancets 30G Use to test blood [...] as of this encounter (statuses as of 03/02/2024) Active Problems Problem Noted Date Diagnosed Date [...] bedtime 10/04/23- elevated sugars message sent to METHANE GAS COLLECTION SYSTEM OPERATOR 10/04/23: RPM increase to Basaglar 20 [...] 11/22/23-stable 11/30/23- elevated fastings msg sent to METHANE GAS COLLECTION SYSTEM OPERATOR 11/30/23: RPM reviewed; elevated FBS; continue Basaglar 10 units with breakfast and increase to 25 units at bedtime 12/06/23: RPM reviewed. Elevated FBS and after dinner values. Continue Basaglar 10 units with breakfast for now; increase to 30 units at bedtime. 12/13/2023- elevations in FBS sent to METHANE GAS COLLECTION SYSTEM OPERATOR 12/13/23: RPM increase to Basaglar 10 units with breakfast and 40 units at bedtime 12/20/2339-lfvmcq-xxoz missing sugars- will msg pt 12/27/23- stable- missing numbers- will review again next week 01/03/24: RPM message sent requesting updated blood sugars 01/10/24: has not entered blood sugars into [facility] since 12/29/23. Message to [facility] PARS to assist patient with scheduling [...] has return visit scheduled this afternoon. 02/02/24: [facility] PARs called patient on 01/16, 01/18, 01/24, 01/30 and today 02/01. Also sent MyG on 01/18, 01/25 and 01/30 to schedule ADAPT FU. No response from patient thus far. Telephone encounter routed to OB team. 02/07/24: RPM reviewed, no readings reported. Pt sent message that aline isn't working for her. Gave logs to OB. I reviewed the logs in the [employer] media portion of [facility]. FBS and after dinner elevated. Advised that [...] RPM reviewed; not reporting in [facility] Alnie; message sent to the PARS to schedule [...] as of this encounter (statuses as of 03/02/2024) Resolved Problems Problem Noted Date Diagnosed Date [...] as of this encounter (statuses as of 03/02/2024) Immunizations Name Administration Dates Next Due DTP [...] money to get more. Never true 11/07/2023 [place] Depression Scale Answer Date Recorded [place] Depression Scale Total 2 01/13/2024 The thought [...] Sign Reading Time Taken Comments Blood Pressure 118/72 03/02/2024 10:17 AM EDT Pulse - - Temperature - - Respiratory Rate - - Oxygen Saturation - - Inhaled Oxygen Concentration - - Weight 109 kg (240 lb 3.2 oz) 03/02/2024 10:17 A M EDT Height - - Body Mass Index 42.55 02/21/2024 1:34 PM EDT documented in this encounter Progress Notes * Estela Ospina PA-C - 03/02/2024 10:53 AM EDT Chio Faulkner 03/[birth year]24 Chio Faulkner is a 28 year old female presenting at 36w3d for NST. She has concerns todayfor increased vaginal discharge without burning, itching, irritation, or odor. She also is worried that it could be amniotic fluid. She reports feeling increased cramping and pressure, also related to when baby moves. Reports drinking 120 ounces of water daily. She has a belly band that she has been using. She reports good movement, but does not think it has been occurring as frequent as it used to. She reports intermittent contractions that are not occurring at a regular interval. States last night she was having contractions q 30 minutes. Today, she thinks she is having them q 10 minutes and are slightly more painful. ASSESSMENT assessment with Non-stress Test completed on 03/02/2024 at 36w3d weeks gestation for indicationof GDMA2, class 3 obesity. heart baseline: 160 bpm Variability: Moderate Decelerations: absent Accelerations: present Contractions: None NST start time: 1008 NST stop time: 1049 NST strip reviewed, interpreted, and approved by OB provider, Estela Ospina PA-C, TAMIKO Cervantes, and Dr. Carol MD. NST strip stored in clinic storage file Nitrazine negative. Vaginosis culture collected. Bowl Sander Documentation Patient offered automotive parts counter assistant and accepted. Name of automotive parts counter assistant: Beth Park LPN. Assessment/Plan Supervision of high risk in third trimester (Primary) Insulin controlled gestational diabetes mellitus (GDM) during , antepartum Obesity in , antepartum Single umbilical artery, maternal, antepartum Maternal asthma complicating History of gestational hypertension Pelvic pain affecting in third trimester, antepartum - CULTURE, URINE, QUANTITATIVE Vaginal discharge - VAGINOSIS PANEL, PCR; Future; Expected date: 03/02/2024 Supervision of - reassured patient of negative Nitrazine testing. - encouraged fluids, rest, light stretching, compression stockings, and belly band for labor discomfort. - strict labor precautions and kick counts reviewed. Patient taught how to perform kick counts at home. She states she has the office and L&D phone numbers. Estela Ospina PA-C 03/02/2024 documented in this encounter Nursing Notes * Yuly Brunson RN - 03/02/2024 10:20 AM EDT Patient here for NST 36w3d + b/l LE swelling Denies SCHMIDT, Blurry vision RUQ pain + FM No bleeding or leaking or regular contractions Yuly Brunson, RN documented in this encounter Plan of Treatment Upcoming Encounters Date Type Department Care Team (Late st Contact Info) Description 03/06/2024 1:15 PM EDT Office Visit Gynecology/Obstetrics [facility] [address] [place] [address] Leena Mccarthy CRNP [address] [place] [address] [place] Non Stress Tests Dave [address] [place] [address] 03/06/2024 3:00 PM EDT Telemedicine Bun Icer Obstetrics Maternal Medicine, [address] [address] Estela Herrera CRNP [address] [place] [address] 03/09/2024 10:15 AM EDT Office Visit Gynecology/Obstetrics [facility] [address] [place] [address] Stephanie Tamayo CRNP [address] [place] [address] [place], Non Stress Tests Dave [address] [place] [address] 03/09/2024 11:00 AM EDT Imaging Maternal Medicine Imaging, Dave Zhangdarling [address] [place] [id number] 03/13/2024 1:15 PM EDT Office Visit Gynecology/Obstetrics [facility] [address] [place] [address] Leena Mccarthy CRNP [address] [place] [address] [place], Non Stress Tests Dave [address] [place] [address] 03/16/2024 1:45 PM EDT Office Visit Gynecology/Obstetrics [facility] [address] [place] [address] Leena Mccarthy CRNP [address] [place] [address] [place] Non Stress Tests Dave [address] [place] [address] Pending Results Name Type Priority Associated Diagnoses Date /Time CULTURE, URINE, QUANTITATIVE Lab Routine Pelvic pain affecting in third trimester, antepartum 03/02/2024 11:15 AM EDT VAGINOSIS PANEL, PCR Lab Routine Vaginal discharge 03/02/2024 11:29 AM EDT Scheduled Orders Name Type Priority Associated Diagnoses Orde r Schedule VAGINOSIS PANEL, PCR Lab Routine Vaginal discharge Expected: 03/02/2024, Expires: 03/02/2025 Health Maintenance Due Date Last Done Comments [...] risk in third trimester- Primary Unspecified high-risk Insulin controlled gestational diabetes mellitus (GDM) during , antepartum Obesity in , antepartum Obesity complicating , childbirth, or the puerperium, antepartum condition or complication Single umbilical artery, maternal, antepartum Other umbilical cord complications during labor and delivery, antepartum Maternal asthma complicating Other current maternal conditions classifiable elsewhere, complicating , childbirth, or the puerperium, unspecified as to episode of care History of gestational hypertension Pelvic pain affecting in third trimester, antepartum Vaginal discharge Leukorrhea, not specified as infective documented in this encounter Care Teams Founder And Chief Executive Officer Relationship Specialty Start Date End Date Marquez Jasmine PA-C [address] [place] [phone] PCP - General Physician Garage Laborer 11/02/14 documented as of this encounter
--- OUTSIDE RECORDS SUMMARY | 2024-03-21 07:50 | External Medical Summary | Summary of Care ---
Author Name Unknown Organization [facility] Address [address] [place] [address] Phone [phone] Care Team Providers Care Java Oracle Developer Name Role Phone Marquez Jasmine PA-C Primary Care Provider Reason for Visit * Reason Comments Non Stress Test Encounter Details Date Type Department Care Team (Late st Contact Info) Description 02/24/2024 1:45 PM EDT Office Visit Gynecology/Obstetric s [facility] [address] [place] [address] Leena Mccarthy CRNP [address] [place] [address] [place], Non Stress Tests Dave [address] [facility] [address] Supervision of high risk in third trimester*; Obesity in , antepartum; Maternal asthma complicating ; History of gestational hypertension; Insulin controlled gestational diabetes mellitus (GDM) during , antepartum; Single umbilical artery, maternal, antepartum Allergies No known active allergiesdocumented as of this encounter (statuses as of 02/24/2024) Medications Medication Sig Dispensed Refills Start Date End Date Status /Folic Acid Oral Tablet Take by mouth. 0 Active Aspirin 81 MG Oral Tablet ChewableIndications: High-risk in first trimester Take 1 Tablet by mouth in the morning. 100 Tablet 3 09/14/2023 Active [employer] Verio Flex System w/Device Kit Use to test blood sugars 4 times daily (fasting, 1 hour after breakfast, lunch, and dinner) 1 Kit 0 09/17/2023 Active OneTouch Verio In Vitro Strip (Glucose Blood) Use to test blood sugars 4 times daily (fasting, 1 hour after breakfast, lunch, and dinner) 125 Strip 6 09/17/2023 Active LogicLoop Delica Lancets 30G Use to test blood [...] 100 UNIT/ML Subcutaneous Solution Pen-injector (Lantus SoloStar)Indications :Insulin controlled gestational diabetes mellitus (GDM) in second trimester,Supervisio n of high risk in second trimester Inject under the skin 10 units with breakfast and 30 units at bedtime 15 mL 3 02/07/2024 Active documented as of this encounter (statuses as of 02/24/2024) Active Problems Problem Noted Date Diagnosed Date [...] bedtime 10/04/23- elevated sugars message sent to CLOTH WORKER 10/04/23: RPM increase to Basaglar 20 units [...] 11/22/23-stable 11/30/23- elevated fastings msg sent to CLOTH WORKER 11/30/23: RPM reviewed; elevated FBS; continue Basaglar 10 units with breakfast and increase to 25 units at bedtime 12/06/23: RPM reviewed. Elevated FBS and after dinner values. Continue Basaglar 10 units with breakfast for now; increase to 30 units at bedtime. 12/13/2023- elevations in FBS sent to CLOTH WORKER 12/13/23: RPM increase to Basaglar 10 units with breakfast and 40 units at bedtime 12/20/2301-hefjqu-oevk missing sugars- will msg pt 12/27/23- stable- missing numbers- will review again next week 01/03/24: RPM message sent requesting updated blood sugars 01/10/24: has not entered blood sugars into [facility] since 12/29/23. Message to [facility] PARS to assist patient with scheduling [...] has return visit scheduled this afternoon. 02/02/24: [facility] PARs called patient on 01/16, 01/18, 01/24, 01/30 and today 02/01. Also sent MyG on 01/18, 01/25 and 01/30 to schedule ADAPT FU. No response from patient thus far. Telephone encounter routed to OB team. 02/07/24: RPM reviewed, no readings reported. Pt sent message that Android App Review Source aline isn't working for her. Gave logs to OB. I reviewed the logs in the [employer] media portion of [facility]. FBS and after dinner elevated. Advised that [...] the PARS to schedule a FU ADAPT Last Assessment & Plan: Working with ADAPT. [...] during the antepartum period. Maternal asthma complicating 3 Overview: Diagnosed in childhood 09/23/23 last [...] as of this encounter (statuses as of 02/24/2024) Resolved Problems Problem Noted Date Diagnosed Date [...] as of this encounter (statuses as of 02/24/2024) Immunizations Name Administration Dates Next Due HPV [...] money to get more. Never true 11/07/2023 [place] Depression Scale Answer Date Recorded [place] Depression Scale Total 2 01/13/2024 The thought [...] Sign Reading Time Taken Comments Blood Pressure 122/78 02/24/2024 1:56 PM EDT Pulse - - Temperature - - Respiratory Rate - - Oxygen Saturation - - Inhaled Oxygen Concentration - - Weight 108.4 kg (239 lb) 02/24/2024 1:56 PM EDT Height - - Body Mass Index 42.34 02/21/2024 1:34 PM EDT documented in this encounter Progress Notes * Leena Mccarthy CRNP - 02/24/2024 2:19 PM EDT 35w3d Some irregular ctx. Increase in discharge vs urine. Does not feel like amniotic fluid, ROM ruled out recently. No bleeding. Has never had more than 4-5 movements in 2 hrs - states she eats and drinks before kick counts. NST today is reactive, 15 movements indicated on 31 minute tracing. On Wednesday she had a BPP of 8/8 with reactive NST. Discussed movement patterns; testing this week demonstrates no evidence of distress. Encouraged to contact the office with a change in baby's movement pattern, regular ctx, leaking/bleeding. Has had trouble uploading blood sugar readings - has a video visit with ADAPT next week, and MFM growth scan in 2 weeks. Reports good glycemic control. ASSESSMENT assessment with Non-stress Test completed on 02/24/2024 at 35.3 weeks gestation for indication of gestational diabetes mellitus, obesity, and 2 vessel umbilical cord heart baseline: 140 bpm Variability: Moderate Decelerations: absent Accelerations: present Contractions: None NST start time: 1342 NST stop time: 1413 NST strip reviewed, interpreted, and approved by OB provider, TAMIKO Samano . NST strip stored in clinic storage file documented in this encounter Plan of Treatment Upcoming Encounters Date Type Department Care Team (Late st Contact Info) Description 02/28/2024 1:15 PM EDT Office Visit Gynecology/Obstetrics [facility] [address] [place] [address] Leena Mccarthy CRNP [address] [place] [address] [place] Non Stress Tests Dave [address] [place] [address] 02/28/2024 3:00 PM EDT Telemedicine [employer] Leak Tester Obstetrics M[facility], [facility] [address] [place] [address] Estela Herrera CRNP [address] [place] [address] 03/02/2024 10:15 AM EDT Office Visit Gynecology/Obstetrics [facility] [address] [place] [address] Estela Ospina PA-C [address] [place] [address] [place] Non Stress Tests Dave [address] [place] [address] 03/06/2024 1:15 PM EDT Office Visit Gynecology/Obstetrics [facility] [address] [place] [address] Leena Mccarthy CRNP [address] [place] [address] [place] Non Stress Tests Dave [address] [place] [address] 03/09/2024 10:15 AM EDT Office Visit Gynecology/Obstetrics [facility] [address] [place] [address] Stephanie Tamayo CRNP [address] [place] [address] [place] Non Stress Tests Dave [address] [place] [address] 03/09/2024 11:00 AM EDT Imaging Maternal Medicine Imaging, [place] [phone] 03/13/2024 1:15 PM EDT Office Visit Gynecology/Obstetrics [facility] [address] [place] [address] Leena Mccarthy CRNP [address] [place] [address] [place], Non Stress Tests Dave [address] [place] [address] 03/16/2024 1:45 PM EDT Office Visit Gynecology/Obstetrics [facility] [address] [place] [address] Leena Mccarthy CRNP [address] [place] [address] [place], Non Stress Tests Dave [address] [place] [id number] Health Maintenance Due Date Last Done Comments Pneumococcal Vaccine: Pediat rics (0 to 5 Years) and At-Risk Patients (6 to 64 Years) (1 of 2 - PCV) 2001 *SPIROMETRY ONCE FOR ASTHMA-ADULT 09/17/2022 COVID-19 Vaccine ( - 2022-2 4 season) 2023 Influenza Vaccine (FLU shot) (Season Ended) 2024 [...] antepartum documented in this encounter Care Teams Java Oracle Developer Relationship Specialty Start Date End Date Marquez Jasmine PA-C [address] [place] [address] PCP - General Physician Table Operator 11/02/14 documented as of this encounter
--- OUTSIDE RECORDS SUMMARY | 2024-03-21 07:50 | External Medical Summary | Summary of Care ---
Author Name Unknown Organization [facility] Address [address] [place] [address] Phone [phone] Care Team Providers Care Welder Fitter Arc Name Role Phone Marquez Jasmine PA-C Primary Care Provider Reason for Visit * Reason Comments Return Visit Non Stress Test Encounter Details Date Type Department Care Team ([facility] st Contact Info) Description 02/28/2024 1:15 PM EDT Office Visit Gynecology/Obstetric s [facility] [address] [facility] [place] [address] Leena Mccarthy CRNP [address] [place] [address] [place], Non Stress Tests Dave [address] [place] [address] Supervision of high risk in third trimester*; Obesity in , antepartum; Maternal asthma complicating ; History of gestational hypertension; Insulin controlled gestational diabetes mellitus (GDM) during , antepartum; Single umbilical artery, maternal, antepartum Allergies No known active allergiesdocumented as of this encounter (statuses as of 02/28/2024) Medications Medication Sig Dispensed Refills Start Date End Date Status /Folic Acid Oral Tablet Take by mouth. 0 Active Aspirin 81 MG Oral Tablet ChewableIndications: High-risk in first trimester Take 1 Tablet by mouth in the morning. 100 Tablet 3 09/14/2023 Active AppDevyTouch Verio Flex System w/Device Kit Use to test blood sugars 4 times daily (fasting, 1 hour after breakfast, lunch, and dinner) 1 Kit 0 09/17/2023 Active OneTouch Verio In Vitro Strip (Glucose Blood) Use to test blood sugars 4 times daily (fasting, 1 hour after breakfast, lunch, and dinner) 125 Strip 6 09/17/2023 Active AppDevyTouch Delica Lancets 30G Use to test blood [...] as of this encounter (statuses as of 02/28/2024) Active Problems Problem Noted Date Diagnosed Date [...] bedtime 10/04/23- elevated sugars message sent to BLOOM CONVEYOR OPERATOR 10/04/23: RPM increase to Basaglar 20 [...] 11/22/23-stable 11/30/23- elevated fastings msg sent to BLOOM CONVEYOR OPERATOR 11/30/23: RPM reviewed; elevated FBS; continue Basaglar 10 units with breakfast and increase to 25 units at bedtime 12/06/23: RPM reviewed. Elevated FBS and after dinner values. Continue Basaglar 10 units with breakfast for now; increase to 30 units at bedtime. 12/13/2023- elevations in FBS sent to BLOOM CONVEYOR OPERATOR 12/13/23: RPM increase to Basaglar 10 units with breakfast and 40 units at bedtime 12/20/2396-wjwbts-sxff missing sugars- will msg pt 12/27/23- stable- missing numbers- will review again next week 01/03/24: RPM message sent requesting updated blood sugars 01/10/24: has not entered blood sugars into [facility] since 12/29/23. Message to [facility] PARS to assist patient with scheduling [...] has return visit scheduled this afternoon. 02/02/24: [facility] PARs called patient on 01/16, 01/18, 01/24, 01/30 and today 02/01. Also sent MyG on 01/18, 01/25 and 01/30 to schedule [facility]T FU. No response from patient thus far. Telephone encounter routed to OB team. 02/07/24: RPM reviewed, no readings reported. Pt sent message that aline isn't working for her. Gave logs to OB. I reviewed the logs in the [employer] media portion of [employer]. FBS and after dinner elevated. Advised that [...] scheduled today - sent patient a reminder Last Assessment & Plan: Working with [facility]T. [...] as of this encounter (statuses as of 02/28/2024) Resolved Problems Problem Noted Date Diagnosed Date [...] as of this encounter (statuses as of 02/28/2024) Immunizations Name Administration Dates Next Due HPV [...] money to get more. Never true 11/07/2023 [place] Depression Scale Answer Date Recorded [place] Depression Scale Total 2 01/13/2024 The thought [...] Sign Reading Time Taken Comments Blood Pressure 118/68 02/28/2024 1:15 PM EDT Pulse - - Temperature - - Respiratory Rate - - Oxygen Saturation - - Inhaled Oxygen Concentration - - Weight 108.4 kg (239 lb) 02/28/2024 1:15 PM EDT Height - - Body Mass Index 42.34 02/21/2024 1:34 PM EDT documented in this encounter Progress Notes * Leena Mccarthy CRNP - 02/28/2024 1:31 PM EDT ASSESSMENT assessment with Non-stress Test completed on 02/28/2024 at 36 weeks gestation for indication ofgestational diabetes mellitus, obesity, and 2 vessel umbilical cord heart baseline: 140 bpm Variability: Moderate Decelerations: absent Accelerations: present Contractions: None NST start time: 1309 NST stop time: 1358 NST strip reviewed, interpreted, and approved by OB provider, TAMIKO Samano . NST strip stored in clinic storage file Telemed meeting with ADAPT today. GBS collected. S>D, has growth u/s scheduled on 03/09. Normal growth and CHARLEEN on 02/09. Ad Operations Intern Documentation Provider requested jukebox operator. Name of jukebox operator: TAMIKO Bellamy documented in this encounter Plan of Treatment Upcoming Encounters Date Type Department Care Team (Late st Contact Info) Description 02/28/2024 3:00 PM EDT Telemedicine Balance Truing Inspector Obstetrics Maternal Medicine, [place] [address] [address] Estela Herrera CRNP [address] [facility] [address] 03/02/2024 10:15 AM EDT Office Visit Gynecology/Obstetrics [facility] [address] [facility] [place] [address] Estela Ospina PA-C [address] [place] [address] [place] [address] [place], Non Stress Tests Dave [address] [place] [address] 03/06/2024 1:15 PM EDT Office Visit Gynecology/Obstetrics [facility] [place] [address] [place] [address] Leena Mccarthy CRNP [address] [place] [address] [place], Non Stress Tests Dave [address] [place] [address] 03/09/2024 10:15 AM EDT Office Visit Gynecology/Obstetrics [facility] [place] [address] [place] [address] Stephanie Tamayo CRNP [address] [place] [address] [place], Non Stress Tests Dave [address] [place] [address] 03/09/2024 11:00 AM EDT Imaging Maternal Medicine Imaging, Dave [place] [address] [place] [address] 03/13/2024 1:15 PM EDT Office Visit Gynecology/Obstetrics [facility] [place] [address] [place] [address] Leena Mccarthy CRNP [address] [place] [address] [place], Non Stress Tests Dave [address] [place] [address] 03/16/2024 1:45 PM EDT Office Visit Gynecology/Obstetrics [facility] [place] [address] [place] [address] Leena Mccarthy CRNP [address] [place] [address] [place], Non Stress Tests Dave [address] [place] [address] Pending Results Name Type Priority Associated Diagnoses Date /Time GROUP B STREP CULTURE/PCR Lab Routine Supervision of high risk in third trimester 02/28/2024 2:13 PM EDT Health Maintenance Due Date Last Done Comments [...] antepartum documented in this encounter Care Teams Welder Fitter Arc Relationship Specialty Start Date End Date Marquez Jasmine PA-C [address] [place] [address] PCP - General Physician Educational Therapist 11/02/14 documented as of this encounter
--- OUTSIDE RECORDS SUMMARY | 2024-03-21 07:50 | External Medical Summary | Summary of Care ---
Author Name Unknown Organization [facility] Address [address] [place] [address] Phone [phone] Care Team Providers Care Grade And Center Marker Name Role Phone Marquez Jasmine PA-C Primary Care Provider Reason for Visit * Reason Comments Non Stress Test Encounter Details Date Type Department Care Team (Late st Contact Info) Description 03/02/2024 10:15 AM EDT Office Visit Gynecology/Obstetric s [facility] [place] [address] [place] [address] Estela Ospina PA-C [address] [place] [address] [place], Non Stress Tests Dave 132 [facility] [place] [address] Supervision of high risk in third trimester*; [...] the morning. 100 Tablet 3 09/14/2023 Active Pley [employer] Flex System w/Device Kit Use to test blood sugars 4 times daily (fasting, 1 hour after breakfast, lunch, and dinner) 1 Kit 0 09/17/2023 Active LightInTheBox.comTouch Verio In Vitro Strip (Glucose Blood) Use to test blood sugars 4 times daily (fasting, 1 hour after breakfast, lunch, and dinner) 125 Strip 6 09/17/2023 Active Pley Delica Lancets 30G Use to test blood [...] bedtime 10/04/23- elevated sugars message sent to HATCHERY MAN 10/04/23: RPM increase to Basaglar 20 units [...] 11/22/23-stable 11/30/23- elevated fastings msg sent to HATCHERY MAN 11/30/23: RPM reviewed; elevated FBS; continue Basaglar 10 units with breakfast and increase to 25 units at bedtime 12/06/23: RPM reviewed. Elevated FBS and after dinner values. Continue Basaglar 10 units with breakfast for now; increase to 30 units at bedtime. 12/13/2023- elevations in FBS sent to HATCHERY MAN 12/13/23: RPM increase to Basaglar 10 units with breakfast and 40 units at bedtime 12/20/2339-mspykt-tsyz missing sugars- will msg pt 12/27/23- stable- missing numbers- will review again next week 01/03/24: RPM message sent requesting updated blood sugars 01/10/24: has not entered blood sugars into [facility] since 12/29/23. Message to [facility] P[facility] to assist patient with [...] has return visit scheduled this afternoon. 02/02/24: [facility] PARs called patient on 01/16, 01/18, 01/24, 01/30 and today 02/01. Also sent MyG on 01/18, 01/25 and 01/30 to schedule ADAPT FU. No response from patient thus far. Telephone encounter routed to OB team. 02/07/24: RPM reviewed, no readings reported. Pt sent message that aline isn't working for her. Gave logs to OB. I reviewed the logs in the [employer] media portion of [employer]. FBS and after dinner elevated. Advised that [...] money to get more. Never true 11/07/2023 [place] Depression Scale Answer Date Recorded [place] Depression Scale Total 2 01/13/2024 The thought [...] storage file Nitrazine negative. Vaginosis culture collected. Video Technician Documentation Patient offered dowel machine operator and accepted. Name of dowel machine operator: Beth Park LPN. Assessment/Plan Supervision of high [...] [facility]a Zhang[facility] [address] [place] [address] Leena Mccarthy CRNP [address] [place] [address] [place] Non Stress Tests Dave [address] [place] [address] 03/06/2024 3:00 PM EDT Telemedicine Tram Inspector Obstetrics Maternal Medicine, [address] [address] Estela Herrera CRNP [address] [place] [address] 03/09/2024 10:15 AM EDT Office Visit Gynecology/Obstetrics [facility] [address] [place] [address] Stephanie Tamayo CRNP [address] [place] [address] [place], Non Stress Tests Dave [address] [place] [address] 03/09/2024 11:00 AM EDT Imaging Maternal Medicine Imaging, Dave Zhangdarling [address] [place] [phone] 03/13/2024 1:15 PM EDT Office Visit Gynecology/Obstetrics [facility] [address] [place] [address] Leena Mccarthy CRNP [address] [place] [address] [place], Non Stress Tests Dave [address] [place] [address] 03/16/2024 1:45 PM EDT Office Visit Gynecology/Obstetrics [facility] [place] [address] [place] [address] Leena Mccarthy CRNP [address] [place] [address] [place] Non Stress Tests Dave [address] [place] [address] Pending Results Name Type Priority Associated Diagnoses [...] infective documented in this encounter Care Teams Grade And Center Marker Relationship Specialty Start Date End Date Marquez Jasmine PA-C [address] [place] [address] PCP - General Physician Air Conditioning Mechanic Industrial 11/02/14 documented as of this encounter
--- OUTSIDE RECORDS SUMMARY | 2024-03-21 07:50 | External Medical Summary ---
Author Name Unknown Address Unknown Organization K01[place] [facility] [place] [address] [place] [id number] Laboratory Report Ordering Provider Test Date Status [facility] 03/02/2024 11:15:09 Final Observation Date Value Abnormality Reference (Units) Status Bacteria identified in Specimen by Culture 03/02/2024 11:15:09 No significant growth Final Test: Culture, Urine, Quanti tative
Specimen Source: Urine, Clean Catch
Specimen Type: Urine
Specimen Date: 03/02/2024 11:15 AM
Result Date: 03/03/2024 12:19 PM
Result Status: Final result
Resulting Lab: [facility] [place]
[address]
[facility] [address]

CULTURE

No significant growth

null Performing Location [place] [facility] [place] [address] [facility] [address]
--- OUTSIDE RECORDS SUMMARY | 2024-03-21 07:50 | External Medical Summary | Summary of Care ---
Author Name Unknown Organization [facility] Address [address] [place] [address] Phone [phone] Care Team Providers Care Military Professional Name Role Phone Marquez Jasmine PA-C Primary Care Provider Reason for Visit * Reason Comments Follow Up Gestational diabetes Encounter Details Date Type Department Care Team (Late st Contact Info) Description 02/28/2024 3:00 PM EDT Telemedicine Automated Manufacturing Instructor Obstetrics Maternal Medicine, [place] [address] [address] Estela Herrera CRNP [address] [place] [address] Supervision of high risk in third trimester*; 36 weeks gestation of ; Insulin controlled gestational diabetes mellitus (GDM) in third trimester Allergies No known active allergiesdocumented as of this encounter (statuses as of 02/28/2024) Medications Medication Sig Dispensed Refills Start Date End Date Status /Folic Acid Oral Tablet Take by mouth. 0 Acti ve Aspirin 81 MG Oral Tablet ChewableIndication s:High-risk in first trimester Take 1 Tablet by mouth in the morning. 100 Tablet 3 09/14/2023 Active National Institutes of Health (NIH)ToYoPro Global Verio Flex System w/Device Kit Use to [...] U/F 31G X 5 MM (Insulin Pen Needle)Indications :Insulin controlled gestational diabetes mellitus (GDM) in second trimester,Supervis ion of high risk in second trimester Use to inject insulin once daily. 100 Each 3 09/29/2023 Active Breast Pump Use as directed 1 Each 0 01/13/2024 Active Additional Information Patient not taking.Reported on 02/28/2024 Insulin Glargine Solostar 100 UNIT/ML Subcutaneous Solution Pen-injector (Lantus SoloStar)Indicatio ns:Supervision of high risk in third trimester,Insulin controlled gestational diabetes mellitus (GDM) in third trimester Inject under the skin 10 units with breakfast and 25 units at bedtime 15 mL 3 02/28/2024 Active Insulin Glargine Solostar 100 UNIT/ML Subcutaneous Solution Pen-injector (Lantus SoloStar)Indicatio ns:Insulin controlled gestational diabetes mellitus (GDM) in second trimester,Supervis ion of high risk in second trimester Inject under the skin 10 units with breakfast and 30 units at bedtime 15 mL 3 02/07/2024 4 Discontinue d(Refill) documented as of this encounter (statuses as [...] bedtime 10/04/23- elevated sugars message sent to MOVIE SHOT CAMERA OPERATOR 10/04/23: RPM increase to Basaglar 20 [...] 11/22/23-stable 11/30/23- elevated fastings msg sent to MOVIE SHOT CAMERA OPERATOR 11/30/23: RPM reviewed; elevated FBS; continue Basaglar 10 units with breakfast and increase to 25 units at bedtime 12/06/23: RPM reviewed. Elevated FBS and after dinner values. Continue Basaglar 10 units with breakfast for now; increase to 30 units at bedtime. 12/13/2023- elevations in FBS sent to MOVIE SHOT CAMERA OPERATOR 12/13/23: RPM increase to Basaglar 10 units with breakfast and 40 units at bedtime 12/20/2325-emnwsb-ltwb missing sugars- will msg pt 12/27/23- stable- missing numbers- will review again next week 01/03/24: RPM message sent requesting updated blood sugars 01/10/24: has not entered blood sugars into [facility] since 12/29/23. Message to [facility] PARS to assist patient with [...] has return visit scheduled this afternoon. 02/02/24: [facility] PARs called patient on 01/16, 01/18, 01/24, 01/30 and today 02/01. Also sent MyG on 01/18, 01/25 and 01/30 to schedule ADAPT FU. No response from patient thus far. Telephone encounter routed to OB team. 02/07/24: RPM reviewed, no readings reported. Pt sent message that aline isn't working for her. Gave logs to OB. I reviewed the logs in the [employer] media portion of [employer]. FBS and after dinner elevated. Advised that [...] money to get more. Never true 11/07/2023 [place] Depression Scale Answer Date Recorded [place] Depression Scale Total 2 01/13/2024 The thought [...] as of this encounter Progress Notes * Estela Herrera CRNP - 02/28/2024 2:59 PM EDT MATERNAL MEDICINE VISIT Patient location: HOME. I was in a hospital or clinic location. After connecting through [employer],patient was verified with two unique identifiers. Patient (or authorized legal provider service representative) was then informed that this was a Telemedicine visit and being conducted confidentially over secure lines. Methods to assure confidentiality were taken. Patient acknowledged consent and understanding of pr ivacy and security of the Telemedicine visit. The patient agreed to participate. Chio Faulkner is a 28 year old year old with intrauterine at 36w0d who [facility]sto [facility] diabetes in . CC/HPI: Here for f/u visit. Current issues include: patient notes FBS trending lower in 70s this week Current management: Lantus 10 units at breakfast and 30 units at bedtime Diet: gestational diabetes diet Recent growth scan: [facility] US: 02/10/2024 at 33w3d CHARLEEN: 12.1 cm EFW: 2078g (28% Hadlock) BIOPHYSICAL PROFILE 06/01 Glucose review: Hemoglobin A1C last result: Lab Results Component Value Date/Time HEMOGLOBIN A1C - CUONGER 5.2 10/07/2023 07:48 AM She reports her home blood glucose as following: DATE Fasting 1 hr after Breakfast 1 hr after Lunch 1 hr after Dinner 02/22/24 85 98 113 123 02/23/24 82 95 110 122 02/24/24 71 83 92 112 02/25/24 72 93 110 122 02/26/24 83 93 115 126 02/27/24 70 81 100 120 02/28/24 73 77 92 x Hypoglycemia episodes: Denies blood sugars <70 however patient reports feeling shaky when fasting blood sugar is in 70s this past week; reports eating breakfast and they recover well without concern REVIEW OF SYSTEMS: headaches: no nausea/vomiting: none today reports movement: yes (reinforced kick counts and when to call) abdominal pain/tenderness/cramping/contractions: occasional irregular ctx; denies consistent ctx vaginal bleeding: no vaginal leaking of fluid: no all other systems negative PHYSICAL EXAM: LMP 06/21/2023 Comment: had Mirena removed 05/31/23 only had 1 period from removal until Constitutional: well-developed, well nourished General: pleasant, alert and oriented Neuro: mood and affect normal, alert and oriented, no acute distress DISCUSSION: -We discussed continuing to test blood sugars 4 times a day (fasting, one hour after breakfast, lunch, and dinner). -Briefly reviewed GDM diet recommendations. -We discussed eating a bedtime snack to help with sugar control in the fasting timeframe. -Encourage 20-30 minutes a day of exercise (walking, light upper body strength training, yoga, stationary cycling, or swimming). -We discussed the goal of euglycemia in order to create a stable environment for the fetus. She is aware that with diabetes are at increased risk for multiple complications to both mother and fetus. -She offers no concerns with insulin administration at this time. -Reviewed how to recognize and treat hypoglycemia. -We discussed the sign and symptoms of hypoglycemia (low blood sugar which is <70) and how to respond. If this should happen, we recommend the Rule of 15: 1) Test blood sugar. 2) Eat 15 grams of carbohydrate (choose one) --3 glucose tablets --4-6 oz of juice --8 oz of skim or low-fat milk --6 saltines 3) Wait 15 minutes. 4) Retest blood glucose. 5) If blood glucose less than 80 mg/dl, repeat above steps. -I encouraged the patient to reach out to [facility] in the event that she has any questions regarding diabetes management. RECOMMENDATIONS: Management: continue Lantus 10 units at breakfast and decrease to 25 units at bedtime Scheduled on 03/09/2024 for growth scan. Continue twice weekly NSTs for A2GDM. Recommend delivery during the 39th week of by EDC for A2GDM. Follow up is scheduled with TAMIKO Sadler on 03/06/2024 @ 3:00PM via telemedicine for [facility]T ([facility]). Thank you for allowing us to participate in the care of this patient. Please call with any questions. TAMIKO Conte 02/28/2024 3:20 PM documented in this encounter Plan of Treatment Upcoming Encounters Date Type Department Care Team (Late st Contact Info) Description 03/02/2024 10:15 AM EDT Office Visit Gynecology/Obstetrics [facility] [address] [place] [address] Estela Ospina PA-C [address] [place] [address] [place] [address] Shaylee Marin Stress Tests Dave [address] [place] [address] 03/06/2024 1:15 PM EDT Office Visit Gynecology/Obstetrics [facility] [address] [place] [address] Leena Mccarthy CRNP [address] [place] [address] Shaylee Marin Stress Tests Dave [address] [place] [address] 03/06/2024 3:00 PM EDT Telemedicine Automated Manufacturing Instructor Obstetrics Maternal Medicine, [address] [address] Estela Herrera CRNP [address] [place] [address] 03/09/2024 10:15 AM EDT Office Visit Gynecology/Obstetrics [facility] [address] [place] [address] Stephanie Tamayo CRNP [address] [place] [address] [place], Non Stress Tests Dave [address] [place] [address] 03/09/2024 11:00 AM EDT Imaging Maternal Medicine Imaging, Dave [address] [place] [phone] 03/13/2024 1:15 PM EDT Office Visit Gynecology/Obstetrics [facility] [place] [address] [place] [address] BackLeena gamble CRNP [address] [place] [address] [place] Non Stress Tests Dave [address] [place] [address] 03/16/2024 1:45 PM EDT Office Visit Gynecology/Obstetrics [facility] [place] [address] [place] [address] Leena Mccarthy CRNP [address] [place] [address] [place] Non Stress Tests Dave [address] [place] [address] Health Maintenance Due Date Last Done Comments [...] risk in third trimester- Primary Unspecified high-risk 36 weeks gestation of state, incidental Insulin controlled gestational diabetes mellitus (GDM) in third trimester documented in this encounter Care Teams Military Professional Relationship Specialty Start Date End Date Marquez Jasmine PA-C [address] [place] [address] PCP - General Physician Pulp Tester 11/02/14 documented as of this encounter
--- OUTSIDE RECORDS SUMMARY | 2024-03-21 07:50 | External Medical Summary ---
Author Name Unknown Address Unknown Organization K01:[facility] [place] [address] [facility] [address] Laboratory Report Ordering Provider Test Date Status JOSÉ MIGUEL ADAMS 02/28/2024 14:13:09 Final Observation Date Value Abnormality Reference (Units ) Status Streptococcus agalactiae DNA [Presence] in Specimen by AVA with probe detection 02/28/2024 14:13:09 Negative Negative Final No Group B Streptococcus det ected by culture-enhanced PCR (amplified probe).
The collection of vaginal/rectal swab specimen combinations (FDA approved specimen type) is optimal for the detection of Group B Streptococcus. Single source collection (vaginal only or rectal only) or alternate specimen sources may lead to false negative results. Performing Location [facility] [place] [address] [facility] [address]
--- OUTSIDE RECORDS SUMMARY | 2024-03-21 07:50 | External Medical Summary ---
Author Name Unknown Address Unknown Organization K01:LAB[facility]ATORY [facility] [place] - [address] [place] [address] Laboratory Report Ordering Provider Test Date Status [facility] 03/02/2024 11:29:41 Final Observation Date Value Abnormality Reference (Units ) Status Bacterial vaginosis [Interpretation] in Vaginal fluid Qualitative 03/02/2024 11:29:41 Negative Negative Final Negative for Bacterial Vagin osis. Correlate results with other clinical findings. Nia sp DNA [Presence] in Vaginal fluid by Probe 03/02/2024 11:29:41 Negative Negative Final No Nia species group RNA detected. Correlate results with other clinical findings. Nia glabrata RNA [Presen ce] in Vaginal fluid by AVA with probe detection 03/02/2024 11:29:41 Negative Negative Final No Nia glabrata RNA dete cted. Correlate results with other clinical findings. Trichomonas vaginalis DNA [P resence] in Vaginal fluid by Probe 03/02/2024 11:29:41 Negative Negative Final No Trichomonas vaginalis RNA detected. Performing Location LABORATORY [facility] - [address] [place] [address]
--- OUTSIDE RECORDS SUMMARY | 2024-03-21 07:51 | External Medical Summary | Summary of Care ---
Author Name Unknown Organization [facility] Address [address] [place] [address] Phone [phone] Care Team Providers Care Grant Officer Name Role Phone Marquez Jasmine PA-C Primary Care Provider Encounter Details Date Type Department Care Team (Late st Contact Info) Description 02/21/2024 Telephone Primary Class Teacher Obstetrics Maternal Medicine, [place] [address] [place], [place] [phone] [place], Nurse Primary Class Teacher [facility] [address] [place], [place] [phone] Allergies No known active allergiesdocumented as of this encounter (statuses as of 02/21/2024) Medications Medication Sig Dispensed Refills Start Date End Date Status /Folic Acid Oral Tablet Take by mouth. 0 Active Aspirin 81 MG Oral Tablet ChewableIndications: High-risk in first trimester Take 1 Tablet by mouth in the morning. 100 Tablet 3 09/14/2023 Active [employer] Flex System w/Device Kit Use to test blood sugars 4 times daily (fasting, 1 hour after breakfast, lunch, and dinner) 1 Kit 0 09/17/2023 Active HookedTouch Verio In Vitro Strip (Glucose Blood) Use to test blood sugars 4 times daily (fasting, 1 hour after breakfast, lunch, and dinner) 125 Strip 6 09/17/2023 Active HookedTouch Delica Lancets 30G Use to test blood [...] as of this encounter (statuses as of 02/21/2024) Active Problems Problem Noted Date Diagnosed Date [...] bedtime 10/04/23- elevated sugars message sent to HI RANGER OPERATOR 10/04/23: RPM increase to Basaglar 20 [...] 11/22/23-stable 11/30/23- elevated fastings msg sent to HI RANGER OPERATOR 11/30/23: RPM reviewed; elevated FBS; continue Basaglar 10 units with breakfast and increase to 25 units at bedtime 12/06/23: RPM reviewed. Elevated FBS and after dinner values. Continue Basaglar 10 units with breakfast for now; increase to 30 units at bedtime. 12/13/2023- elevations in FBS sent to HI RANGER OPERATOR 12/13/23: RPM increase to Basaglar 10 units with breakfast and 40 units at bedtime 12/20/2377-mzkjtz-vvaf missing sugars- will msg pt 12/27/23- stable- missing numbers- will review again next week 01/03/24: RPM message sent requesting updated blood sugars 01/10/24: has not entered blood sugars into [facility] since 12/29/23. Message to [facility] to assist patient with [...] has return visit scheduled this afternoon. 02/02/24: [facility] called patient on 01/16, 01/18, 01/24, 01/30 and today 02/01. Also sent MyG on 01/18, 01/25 and 01/30 to schedule ADAPT FU. No response from patient thus far. Telephone encounter routed to OB team. 02/07/24: RPM reviewed, no readings reported. Pt sent message that [employer] aline isn't working for her. Gave logs to OB. I reviewed the logs in the [employer] media portion of [employer]. FBS and after dinner elevated. Advised that [...] as of this encounter (statuses as of 02/21/2024) Resolved Problems Problem Noted Date Diagnosed Date [...] as of this encounter (statuses as of 02/21/2024) Immunizations Name Administration Dates Next Due HPV [...] money to get more. Never true 11/07/2023 [place] Depression Scale Answer Date Recorded [place] Depression Scale Total 2 01/13/2024 The thought [...] Telephone Encounter - Chanel Tejada OSA - 02/21/2024 8:44 AM EDT Phone call to patient. Left message on [employer]'s voice mail. Encouraged patient to return call to [facility] assist with scheduling. * Telephone Encounter - Chanel Tejada OSA - 02/21/2024 8:44 AM EDT ----- Message from TAMIKO Cotton sent at 02/21/2024 8:32 AM EDT ----- Regarding: Needs FU ADAPT (please call) Vt, Please schedule Ms. Faulkner for a 30 minute ADAPT follow up to further manage gestational diabetes at the patient's earliest convenience. Please also schedule a growth scan in 2-3 weeks. This was not scheduled from the 02/10/24 visit. Thank you, Nicol documented in this encounter Plan of Treatment Upcoming Encounters Date Type Department Care Team (Late st Contact Info) Description 02/21/2024 1:45 PM EDT Office Visit Gynecology/Obstetrics [facility] [address] [place] [address] Stephanie Tamayo CRNP [address] [place] [address] [place] Non Stress Tests [facility] [address] [place] [address] 02/24/2024 1:45 PM EDT Office Visit Gynecology/Obstetrics [facility] [address] [place] [address] Leena Mccarthy CRNP [address] [place] [address] [place] Non Stress Tests [facility] [address] [place] [address] 02/28/2024 1:15 PM EDT Office Visit Gynecology/Obst[facility]s [facility] [address] [place] [address] Leena Mccarthy CRNP [address] [place] [address] [place] Non Stress Tests [facility] [address] [place] [address] 03/02/2024 10:15 AM EDT Office Visit Gynecology/Obstetrics [facility] [address] [place], [place] [address] Estela Ospina PA-C [address] [place], [place] [address] [address] [place] Non Stress Tests Dave [address] [place] [address] 03/06/2024 1:15 PM EDT Office Visit Gynecology/Obstetrics [facility] [address] [place] [address] Leena Mccarthy CRNP [address] [place] [address] [place] Non Stress Tests Dave [address] [place], [place] [address] 03/09/2024 10:15 AM EDT Office Visit Gynecology/Obstetrics [facility] [address] [place], [place] [address] Stephanie Tamayo CRNP [address] [place] [address] [place] Non Stress Tests [facility] [address] [place] [address] 03/09/2024 11:00 AM EDT Imaging Maternal Medicine Imaging, [facility] [address] [place] [id number] 03/13/2024 1:15 PM EDT Office Visit Gynecology/Obstetrics [facility] [address] [place] [address] Leena Mccarthy CRNP [address] [place] [address] [place], Non Stress Tests Dave [address] [place] [address] 03/16/2024 1:45 PM EDT Office Visit Gynecology/Obstetrics [facility] [address] [place] [address] BackerLeena CRNP [address] [place] [address] [place] Non Stress Tests [facility] [address] [place] [address] Health Maintenance Due Date Last Done Comments Pneumococcal Vaccine: Pediat rics (0 to 5 Years) and At-Risk Patients (6 to 64 Years) (1 of 2 - PCV) 2001 *SPIROMETRY ONCE FOR ASTHMA-ADULT 09/17/2022 COVID-19 Vaccine (1 - 2022-2 4 season) 2023 Influenza Vaccine [...] filedocumented as of this encounter Care Teams Grant Officer Relationship Specialty Start Date End Date Marquez Jasmine PA-C [address] [place] [address] PCP - General Physician Assurance Senior Manager 11/02/14 documented as of this encounter
--- OUTSIDE RECORDS SUMMARY | 2024-03-21 07:51 | External Medical Summary | Summary of Care ---
Author Name Unknown Organization [facility] Address [address] [place] [address] Phone [phone] Care Team Providers Care Hand Laster Name Role Phone Marquez Jasmine PA-C Primary Care Provider Encounter Details Date Type Department Care Team (Late st Contact Info) Description 02/21/2024 Telephone Customs Inspector Obstetrics Maternal Medicine, [place] [address] [place], [place] [phone] [place], Nurse Customs Inspector [facility] [address] [place], [place] [phone] Allergies No known active allergiesdocumented as of this encounter (statuses as of 02/21/2024) Medications Medication Sig Dispensed Refills Start Date End Date Status /Folic Acid Oral Tablet Take by mouth. 0 Active Aspirin 81 MG Oral Tablet ChewableIndications: High-risk in first trimester Take 1 Tablet by mouth in the morning. 100 Tablet 3 09/14/2023 Active [employer] Flex System w/Device Kit Use to test blood sugars 4 times daily (fasting, 1 hour after breakfast, lunch, and dinner) 1 Kit 0 09/17/2023 Active SendmailTouch Verio In Vitro Strip (Glucose Blood) Use to test blood sugars 4 times daily (fasting, 1 hour after breakfast, lunch, and dinner) 125 Strip 6 09/17/2023 Active [employer]mailTouch Delica Lancets 30G Use to test blood [...] bedtime 10/04/23- elevated sugars message sent to BREAKER TENDER 10/04/23: RPM increase to Basaglar 20 units [...] 11/22/23-stable 11/30/23- elevated fastings msg sent to BREAKER TENDER 11/30/23: RPM reviewed; elevated FBS; continue Basaglar 10 units with breakfast and increase to 25 units at bedtime 12/06/23: RPM reviewed. Elevated FBS and after dinner values. Continue Basaglar 10 units with breakfast for now; increase to 30 units at bedtime. 12/13/2023- elevations in FBS sent to BREAKER TENDER 12/13/23: RPM increase to Basaglar 10 units with breakfast and 40 units at bedtime 12/20/2384-kbsyvs-sdvp missing sugars- will msg pt 12/27/23- stable- missing numbers- will review again next week 01/03/24: RPM message sent requesting updated blood sugars 01/10/24: has not entered blood sugars into [facility] since 12/29/23. Message to [facility] to assist patient [...] has return visit scheduled this afternoon. 02/02/24: [facility] PARs called patient on 01/16, 01/18, 01/24, 01/30 and today 02/01. Also sent MyG on 01/18, 01/25 and 01/30 to schedule ADAPT FU. No response from patient thus far. Telephone encounter routed to OB team. 02/07/24: RPM reviewed, no readings reported. Pt sent message that [employer] aline isn't working for her. Gave logs to OB. I reviewed the logs in the [employer] media portion of [employer]. FBS and after dinner elevated. Advised that [...] 02/21/2024) Immunizations Name Administration Dates Next Due DTP Vaccine 1995,1995,1995 DTP/HIB (Tetramune) 08/14/1996 DTaP Dipth/Tet/Acell Pertussis (Infanrix), Peds 10/02/1999 HIB PRP-T, 4 dose (ActHib) 1995,1995 ,1995 HPV Vaccine, 4-Valent 08/02/2008,03/29/2008,12/24 Hepatitis B, 0-19 yrs 1995,1995, IPV - Polio Virus Vaccine (Inact) 10/02/1999,10/1994,1995 [...] money to get more. Never true 11/07/2023 [place] Depression Scale Answer Date Recorded [place] Depression Scale Total 2 01/13/2024 The thought [...] Telephone Encounter - Shelley Washburn OSA - 02/21/2024 9:29 AM EDT Phone call to patient. Left message on [employer]'s voice mail. Encouraged patient to return call to [facility] assist with scheduling. Sent MyG * Telephone Encounter - Chanel Tejada OSA - 02/21/2024 8:44 AM EDT Phone call to patient. Left message on [employer] voice mail. Encouraged patient to return call to [facility] assist with scheduling. * Telephone Encounter - Chanel Tejada OSA - 02/21/2024 8:44 AM EDT ----- Message from TAMIKO Cotton sent at 02/21/2024 8:32 AM EDT ----- Regarding: Needs FU ADAPT (please call) [place], Please schedule Ms. Faulkner for a 30 [...] 02/21/2024 1:45 PM EDT [facility] [address] [place] [address] Stephanie Tamayo CRNP [address] [place] [address] [place], Non Stress Tests [facility] [address] [place] [address] 02/24/2024 1:45 PM EDT Office Visit Gynecology/Obstetrics [facility] [address] [place] [address] Leena Mccarthy CRNP [address] [place], [place] [address] [place], Non Stress Tests [facility] [address] [place] [address] 02/28/2024 1:15 PM EDT Office Visit Gynecology/Obstetrics [facility] [address] [place] [address] Leena Mccarthy CRNP [address] [place], [place] [address] [place] Non Stress Tests [facility] [address] [place] [address] 03/02/2024 10:15 AM EDT Office Visit Gynecology/Obstetrics [facility] [address] [place] [address] Estela Ospina PA-C [address] [place] [address] [place] [address] [place], Non Stress Tests [facility] [address] [place] [address] 03/06/2024 1:15 PM EDT Office Visit Gynecology/Obstetrics [facility] [address] [place] [address] Leena Mccarthy CRNP [address] [place], [place] [address] [place], Non Stress Tests [facility] [address] [place] [address] 03/09/2024 10:15 AM EDT Office Visit Gynecology/Obstetrics [facility] [address] [place] [address] Stephanie Tamayo CRNP [address] [place] [address] [place], Non Stress Tests [place] [address] 03/09/2024 11:00 AM EDT Imaging Maternal Medicine Imaging, Dave [place] [phone] 03/13/2024 1:15 PM EDT Office Visit Gynecology/Obstetrics [facility] [address] [place] [address] Leena Mccarthy CRNP [address] [place] [address] [place], Non Stress Tests [place] [address] 03/16/2024 1:45 PM EDT Office Visit Gynecology/Obstetrics [facility] [address] [place] [address] Leena Mccarthy CRNP [address] [place] [address] [place], Non Stress Tests [place] [address] Health Maintenance Due Date Last Done Comments [...] filedocumented as of this encounter Care Teams Hand Laster Relationship Specialty Start Date End Date Marquez Jasmine PA-C [address] [place] [address] PCP - General Physician Tank Wagon Driver 11/02/14 documented as of this encounter
--- OUTSIDE RECORDS SUMMARY | 2024-03-21 07:51 | External Medical Summary | Summary of Care ---
Author Name Unknown Organization [facility] Address [address] [place] [address] Phone [phone] Care Team Providers Care Geospatial Technician Name Role Phone Marquez Jasmine PA-C Primary Care Provider Reason for Visit * Reason Onset Date Comments Other 02/18/2024 Encounter Details Date Type Department Care Team (Late st Contact Info) Description 02/18/2024 Telephone Gynecology/Obstetrics [facility] [address] [place], [place] [phone] Services, Scheduling [address] [place] [address] Other Allergies No known active allergiesdocumented as of this encounter (statuses as of 02/18/2024) Medications Medication Sig Dispensed Refills Start Date End Date Status /Folic Acid Oral Tablet Take by mouth. 0 Active Aspirin 81 MG Oral Tablet ChewableIndications: High-risk in first trimester Take 1 Tablet by mouth in the morning. 100 Tablet 3 09/14/2023 Active [employer] Flex System w/Device Kit Use to test blood sugars 4 times daily (fasting, 1 hour after breakfast, lunch, and dinner) 1 Kit 0 09/17/2023 Active [employer] Verio In Vitro Strip (Glucose Blood) Use to test blood sugars 4 times daily (fasting, 1 hour after breakfast, lunch, and dinner) 125 Strip 6 09/17/2023 Active [employer] Delica Lancets 30G Use to test blood [...] as of this encounter (statuses as of 02/18/2024) Active Problems Problem Noted Date Diagnosed Date [...] bedtime 10/04/23- elevated sugars message sent to APPLICATION COORDINATOR 10/04/23: RPM increase to Basaglar 20 units [...] 11/22/23-stable 11/30/23- elevated fastings msg sent to APPLICATION COORDINATOR 11/30/23: RPM reviewed; elevated FBS; continue Basaglar 10 units with breakfast and increase to 25 units at bedtime 12/06/23: RPM reviewed. Elevated FBS and after dinner values. Continue Basaglar 10 units with breakfast for now; increase to 30 units at bedtime. 12/13/2023- elevations in FBS sent to APPLICATION COORDINATOR 12/13/23: RPM increase to Basaglar 10 units with breakfast and 40 units at bedtime 12/20/2375-wrpsgs-ehqg missing sugars- will msg pt 12/27/23- stable- missing numbers- will review again next week 01/03/24: RPM message sent requesting updated blood sugars 01/10/24: has not entered blood sugars into [facility] since 12/29/23. Message to [facility] to assist patient with scheduling FU [...] has return visit scheduled this afternoon. 02/02/24: [facility] PARs called patient on 01/16, 01/18, 01/24, 01/30 and today 02/01. Also sent MyG on 01/18, 01/25 and 01/30 to schedule ADAPT FU. No response from patient thus far. Telephone encounter routed to OB team. 02/07/24: RPM reviewed, no readings reported. Pt sent message that [employer] isn't working for her. Gave logs to OB. I reviewed the logs in the [employer] portion of [employer]. FBS and after dinner elevated. Advised that [...] will offer patient weekly ADAPT as well Last Assessment & Plan: Working with ADAPT. [...] as of this encounter (statuses as of 02/18/2024) Resolved Problems Problem Noted Date Diagnosed Date [...] as of this encounter (statuses as of 02/18/2024) Immunizations Name Administration Dates Next Due HPV [...] money to get more. Never true 11/07/2023 [place] Depression Scale Answer Date Recorded [place] Depression Scale Total 2 01/13/2024 The thought [...] encounter Miscellaneous Notes * Telephone Encounter - Yuly Brunson RN - 02/18/2024 9:56 AM EDT Called patient. She states that [facility], and that they did NST. Everything was okay. But the oncall provider recommended that she have an IOL scheduled in the future for 2 vessel cord, since they book up for IOL so quickly. There has been no urgent communication about this from oncall provider to office. Advised patient that this is something that is usually discussedand scheduled at ov as provider would need to advise when it should be scheduled. Patient has appt in office Wednesday. Advised her to follow up about this then. Pt agreeable. Advised to call triage number with any new concerns. * Telephone Encounter - Guerrero Gallegos OSA - 02/18/2024 9:40 AM EDT Patient is calling as she had seen [facility] and they advised pt to call to get the process started for her induction. Please assist if possible. Thank you. documented in this encounter Plan of Treatment Upcoming Encounters Date Type Department Care Team (Late st Contact Info) Description 02/21/2024 1:45 PM EDT Office Visit Gynecology/Obstetrics [facility] [address] [place] [address] Stephanie Tamayo CRNP [address] [place] [address] [place], Non Stress Tests [facility] [address] [place] [address] 02/24/2024 1:45 PM EDT Office Visit Gynecology/Obstetrics [facility] [address] [place] [address] Leena Mccarthy CRNP [address] [place] [address] [place], Non Stress Tests [facility] [address] [place] [address] 02/28/2024 1:15 PM EDT Office Visit Gynecology/Obst[facility]s [facility] [address] [place] [address] Leena Mccarthy CRNP [address] [place] [address] [place], Non Stress Tests [facility] [address] [place] [address] 03/02/2024 10:15 AM EDT Office Visit Gynecology/Obstetrics [facility] [address] [place] [address] Estela Ospina PA-C [address] [place] [address] [place] [address] [place] Non Stress Tests [facility] [address] [place] [address] 03/06/2024 1:15 PM EDT Office Visit Gynecology/Obstetrics [facility] [address] [place] [address] Backer, TAMIKO Ford [address] [place] [address] T[place] Non Stress Tests [facility] [address] [place] [address] 03/09/2024 10:15 AM EDT Office Visit Gynecology/Obstetrics [facility] [address] [place] [address] Stephanie Tamayo CRNP [address] [place] [address] [place] Non Stress Tests [facility] [address] [place] [address] 03/09/2024 11:00 AM EDT Imaging Maternal Medicine Imaging, [facility] [address] [place] [phone] 03/13/2024 1:15 PM EDT Office Visit Gynecology/Obstetrics [facility] [address] [place] [address] Leena Mccarthy CRNP [address] [place] [address] [place] Non Stress Tests [facility] [address] [place] [address] 03/16/2024 1:45 PM EDT Office Visit Gynecology/Obstetrics [facility] [address] [place] [address] Leena Mccarthy CRNP [address] [place] [address] [place] Non Stress Tests [facility] [address] [place] [address] Health Maintenance Due Date Last Done Comments [...] filedocumented as of this encounter Care Teams Geospatial Technician Relationship Specialty Start Date End Date Marquez Jasmine PA-C [address] [place] [id number] PCP - General Physician Sales Management Trainee 11/02/14 documented as of this encounter
--- OUTSIDE RECORDS SUMMARY | 2024-03-21 07:51 | External Medical Summary | Summary of Care ---
Author Name Unknown Organization [facility] Address [address] [place] [address] Phone [phone] Care Team Providers Care Pump And Still Operator Name Role Phone Marquez Jasmine PA-C Primary Care Provider Reason for Visit * Reason Comments Return Visit Encounter Details Date Type Department Care Team (Late st Contact Info) Description 02/21/2024 1:45 PM EDT Office Visit Gynecology/Obstetric s [facility] [address] [facility] [place] [address] Stephanie Tamayo CRNP [address] [place] [address] [place], Non Stress Tests [facility] [address] [facility] [place] [address] Supervision of high risk in third trimester*; [...] the morning. 100 Tablet 3 09/14/2023 Active [employer] Society Verio Flex System w/Device Kit Use to test blood sugars 4 times daily (fasting, 1 hour after breakfast, lunch, and dinner) 1 Kit 0 09/17/2023 Active OneTouch Verio In Vitro Strip (Glucose Blood) Use to test blood sugars 4 times daily (fasting, 1 hour after breakfast, lunch, and dinner) 125 Strip 6 09/17/2023 Active [employer] Society Delica Lancets 30G Use to test blood [...] bedtime 10/04/23- elevated sugars message sent to INSTRUMENT OPERATOR 10/04/23: RPM increase to Basaglar 20 [...] 11/22/23-stable 11/30/23- elevated fastings msg sent to INSTRUMENT OPERATOR 11/30/23: RPM reviewed; elevated FBS; continue Basaglar 10 units with breakfast and increase to 25 units at bedtime 12/06/23: RPM reviewed. Elevated FBS and after dinner values. Continue Basaglar 10 units with breakfast for now; increase to 30 units at bedtime. 12/13/2023- elevations in FBS sent to INSTRUMENT OPERATOR 12/13/23: RPM increase to Basaglar 10 units with breakfast and 40 units at bedtime 12/20/2386-zoshdd-rupl missing sugars- will msg pt 12/27/23- stable- missing numbers- will review again next week 01/03/24: RPM message sent requesting updated blood sugars 01/10/24: has not entered blood sugars into [facility] since 12/29/23. Message to [facility] to assist patient with scheduling [...] has return visit scheduled this afternoon. 02/02/24: [facility] called patient on 01/16, 01/18, 01/24, 01/30 and today 02/01. Also sent MyG on 01/18, 01/25 and 01/30 to schedule ADAPT FU. No response from patient thus far. Telephone encounter routed to OB team. 02/07/24: RPM reviewed, no readings reported. Pt sent message that 5by aline isn't working for her. Gave logs to OB. I reviewed the logs in the [employer] media portion of [employer]. FBS and after dinner elevated. Advised that [...] money to get more. Never true 11/07/2023 [place] Depression Scale Answer Date Recorded [place] Depression Scale Total 2 01/13/2024 The thought [...] Sign Reading Time Taken Comments Blood Pressure 124/76 02/21/2024 1:34 PM EDT Pulse - - Temperature - - Respiratory Rate - - Oxygen Saturation - - Inhaled Oxygen Concentration - - Weight 107.5 kg (237 lb) 02/21/2024 1:34 PM EDT Height 160 cm (5' 3") 02/21/2024 1:34 PM EDT Body Mass Index 41.98 02/21/2024 1:34 PM EDT documented in this encounter Progress Notes * Stephanie Tamayo CRNP - 02/21/2024 2:18 PM EDT ASSESSMENT assessment with Non-stress Test completed on 02/21/2024 at 35weeks gestation for indication ofgestational diabetes mellitus heart baseline: 140 bpm Variability: Moderate Decelerations: absent Accelerations: present Contractions: None NST start time: 1327 NST stop time: 1408 NST strip reviewed, interpreted, and approved by OB provider, TAMIKO Che . NST strip stored in clinic storage file Pt has been to L&D several times with decreased FM. All testing reassuring. NST reassuring today. TAMIKO Che documented in this encounter Plan of Treatment Upcoming Encounters Date Type Department Care Team (Late st Contact Info) Description 02/24/2024 1:45 PM EDT Office Visit Gynecology/Obstetrics [facility] [address] [place] [address] Leena Mccarthy CRNP [address] [place] [address] Tomas, Non Stress Tests Dave [address] [place] [address] 02/28/2024 1:15 PM EDT Office Visit Gynecology/Obstetrics [facility] [address] [place] [address] Leena Mccarthy CRNP [address] [place] [address] T[place] Non Stress Tests Dave [address] [place] [address] 02/28/2024 3:00 PM EDT Telemedicine Life Sciences Instructor Obstetrics Maternal Medicine, [address] [address] Estela Herrera CRNP [address] [place] [address] 03/02/2024 10:15 AM EDT Office Visit Gynecology/Obstetrics [facility] [address] [place] [address] Estela Ospina PA-C [address] [facility] [place] [address] Tomas Non Stress Tests Dave [address] [place] [address] 03/06/2024 1:15 PM EDT Office Visit Gynecology/Obstetrics [facility] [address] [place] [address] Leena Mccarthy CRNP [address] [place] [address] [place], Non Stress Tests Dave [address] [place] [address] 03/09/2024 10:15 AM EDT Office Visit [facility]necology/[facility] [address] [place] [address] Stephanie Tamayo CRNP [address] [place] [address] [place], Non Stress Tests Dave [address] [place] [address] 03/09/2024 11:00 AM EDT Imaging Maternal Medicine Imaging, [facility] [address] [place] [address] 03/13/2024 1:15 PM EDT Office Visit Gynecology/Obstetrics [facility] [address] [place] [address] Leena Mccarthy CRNP [address] [place] [address] [place], Non Stress Tests Dave [address] [place] [address] 03/16/2024 1:45 PM EDT Office Visit Gynecology/Obstetrics [facility] [address] [place] [address] Leena Mccarthy CRNP [address] [place] [address] [place], Non Stress Tests Dave [address] [place] [address] Health Maintenance Due Date Last Done Comments [...] antepartum documented in this encounter Care Teams Pump And Still Operator Relationship Specialty Start Date End Date Marquez Jasmine PA-C [address] [place] [phone] PCP - General Physician Director [employer] 11/02/14 documented as of this encounter
--- OUTSIDE RECORDS SUMMARY | 2024-03-21 07:51 | External Medical Summary | Summary of Care ---
Author Name Unknown Organization [facility] Address [address] [place] [address] Phone [phone] Care Team Providers Care Facilities Locator Name Role Phone Marquez Jasmine PA-C Primary Care Provider Reason for Visit * Reason Comments Return Visit Encounter Details Date Type Department Care Team (Late st Contact Info) Description 02/21/2024 1:45 PM EDT Office Visit Gynecology/Obstetric s [facility] [address] [facility] [place] [address] Stephanie Tamayo CRNP [address] [place] [address] Tomas, Non Stress Tests Dave [address] [place] [address] Supervision of high risk in third trimester*; [...] the morning. 100 Tablet 3 09/14/2023 Active Vollee Verio Flex System w/Device Kit Use to test blood sugars 4 times daily (fasting, 1 hour after breakfast, lunch, and dinner) 1 Kit 0 09/17/2023 Active OneTouch Verio In Vitro Strip (Glucose Blood) Use to test blood sugars 4 times daily (fasting, 1 hour after breakfast, lunch, and dinner) 125 Strip 6 09/17/2023 Active Vollee Delica Lancets 30G Use to test blood [...] bedtime 10/04/23- elevated sugars message sent to REHABILITATION CENTER MANAGER 10/04/23: RPM increase to Basaglar 20 [...] 11/22/23-stable 11/30/23- elevated fastings msg sent to REHABILITATION CENTER MANAGER 11/30/23: RPM reviewed; elevated FBS; continue Basaglar 10 units with breakfast and increase to 25 units at bedtime 12/06/23: RPM reviewed. Elevated FBS and after dinner values. Continue Basaglar 10 units with breakfast for now; increase to 30 units at bedtime. 12/13/2023- elevations in FBS sent to REHABILITATION CENTER MANAGER 12/13/23: RPM increase to Basaglar 10 units with breakfast and 40 units at bedtime 12/20/2323-zwoixd-kgdk missing sugars- will msg pt 12/27/23- stable- [...] no readings reported. Pt sent message that [employer] aline isn't working for her. Gave logs to OB. I reviewed the logs in the [employer] portion of [employer]. FBS and after dinner elevated. Advised that [...] money to get more. Never true 11/07/2023 [place] Depression Scale Answer Date Recorded [place] Depression Scale Total 2 01/13/2024 The thought [...] Gynecology/Obstetrics [facility] [address] [place] [address] Leena Mccarthy CRNP [address] [place] [address] [place]omas, Non Stress Tests Dave [address] [place] [address] 02/28/2024 1:15 PM EDT Office Visit Gynecology/Obstetrics [facility] [address] [place] [address] Leena Mccarthy CRNP [address] [place] [address] Tomas Non Stress Tests Dave [address] [place] [address] 02/28/2024 3:00 PM EDT Telemedicine Air Shovel Operator Obstetrics Maternal Medicine, [address] [address] Estela Herrera CRNP 3 [place] [address] 03/02/2024 10:15 AM EDT Office Visit Gynecology/Obstetrics [facility] [address] [place] [address] Estela Ospina PA-C [address] [facility] [place] [address] Tomas Non Stress Tests Dave [address] [place] [address] 03/06/2024 1:15 PM EDT Office Visit Gynecology/Obstetrics [facility] [address] [place] [address] Leena Mccarthy CRNP [address] [place] [address] [place], Non Stress Tests Dave [address] [place] [address] 03/09/2024 10:15 AM EDT Office Visit [facility]necology[facility] [address] [place] [address] Stephanie Tamayo CRNP [address] [place] [address] [place], Non Stress Tests Dave [address] [place] [address] 03/09/2024 11:00 AM EDT Imaging Maternal Medicine Imaging, [facility] [address] [place] [address] 03/13/2024 1:15 PM EDT Office Visit Gynecology/Obstetrics [facility] [address] [place] [address] Leena Mccarthy CRNP [address] [place] [address] [place], Non Stress Tests Dave [address] [place] [address] 03/16/2024 1:45 PM EDT Office Visit Gynecology/Obstetrics [facility] [address] [place] [address] Leena Mccarthy CRNP [address] [place] [address] [place], Non Stress Tests Dave [address] [place] [address] Health Maintenance Due Date Last Done Comments [...] antepartum documented in this encounter Care Teams Facilities Locator Relationship Specialty Start Date End Date Marquez Jasmine PA-C [address] [place] [address] PCP - General Physician Nutrition Club Ambassador 11/02/14 documented as of this encounter
[2024-03-21] MEDS ORDERED: LIDOCAINE 1% LOCAL 20 ML VIAL INFIL PRN (09:44)
[2024-03-21] MEDS ORDERED: DEXTROSE 50% 50 ML SYRINGE IV PRN (09:45)
[2024-03-21] MEDS ORDERED: GLUCOSE 40% GEL 15 GM TUBE PO PRN (09:45)
[2024-03-21] MEDS ORDERED: GLUCOSE 10 TAB/TUBE PO PRN (09:45)
[2024-03-21] MEDS ORDERED: GLUCAGON FOR INJ 1 MG VIAL IM PRN (09:45)
[2024-03-21] MEDS ORDERED: CARBOHYDRATES FOR HYPOGLYCEMIA PO PRN (09:45)
--- NOTE | 2024-03-21 09:45 | Obstetrical Progress Note ---
Date of Service March 21, 2024 Assessment & Plan (1) Gestational diabetes mellitus: Plan: pt is a 28yo @term s/p GDMA2 here for indcution of labor FHR; CAT1 Ctx 8-9gtux-nrth intensity bedside sono; Vt EFW by ham; 8lbs VE /-3 Plan; Cytotec #1 Admission and Anticipated Discharge Date Admission Date: March 21, 2024 Results & Data Vital Signs (Past 12 Hours) Vital Signs Temp Pulse Resp BP 03/21/24 08:20 72 135/85 03/21/24 07:53 75 144/73 H 03/21/24 07:51 71 159/80 H 03/21/24 07:48 36.8 C 18
[2024-03-21] MEDS: miSOPROStoL 50 MCG TAB PO ONE (10:05)
[2024-03-21 10:17] LABS: Hematocrit (blood only) 37.9 % (37.0-47.0); Hemoglobin 13.2 g/dl (12.0-16.0); Mean Corpuscular Hemoglobin 31.2 pg (25.0-34.0); Mean Corpuscular Hgb Conc 34.8 g/dL (32.0-36.0); Mean Corpuscular Volume 89.6 fL (80.0-100.0); Mean Platelet Volume 12.7 fL (9.4-12.4); Platelet Count 150 K/uL (130-400); RDW Coefficient of Variation 13.2 % (11.5-14.5); RDW Standard Deviation 43.3 fL (36.4-46.3); Red Blood Count 4.23 M/uL (4.20-5.40); White Blood Count 7.99 K/ul (4.8-10.8)
[2024-03-21] MEDS: LANTUS PER UNIT CHARGE SQ SCH ×2 (10:56→21:41)
[2024-03-21] MEDS: miSOPROStoL 50 MCG TAB PO SCH (14:05)
--- NOTE | 2024-03-21 16:55 | Obstetrical Progress Note ---
Date of Service March 21, 2024 Assessment & Plan (1) Decreased movement affecting management of in third trimester: Plan: Pt doing well FHR; CAT1 Ctx 1-3mins VE; 3/50/-3 Will start Pitocin augmentation (2) Elevated blood pressure complicating in third trimester, antepartum: Admission and Anticipated Discharge Date Admission Date: March 21, 2024 Results & Data Vital Signs (Past 12 Hours) Vital Signs Temp Pulse Resp BP 03/21/24 14:11 70 130/67 03/21/24 14:10 61 152/81 H 03/21/24 14:00 18 03/21/24 14:00 36.8 C 18 03/21/24 12:22 53 L 132/81 03/21/24 08:20 72 135/85 03/21/24 07:53 75 144/73 H 03/21/24 07:51 71 159/80 H 03/21/24 07:48 36.8 C 18 (1) Decreased movement affecting management of in third trimester Fetus number: single or unspecified fetus Qualified Code(s): O36.8130 - Decreased movements, third trimester, not applicable or unspecified
[2024-03-21] MEDS: LACTATED RINGER'S 1,000 ML IV PRN (17:10)
[2024-03-21] MEDS: OXYTOCIN 30 UNITS/NSS 30 UNITS/500 ML BAG IV PRN (17:11)
--- NOTE | 2024-03-21 20:49 | Anesthesiology Consultation ---
Date of Service March 21, 2024 Assessment & Plan Chart Review Chart Review: Acceptable Risk for Labor Epidural Consults Requested none ASA ASA3 Proposed Anesthesia Anesthesia Type: Labor Epidural Risk / Benefits Reviewed With: PT / POA / Parent / Guardian, Accepts Plan and Informed Consent Obtained History Height/Weight Height: 5 ft 2 in Weight: 109.769 kg Allergies Allergy/AdvReac Type Severity Reaction Status Date / Time No Known Allergies Allergy Verified 02/18/24 08:44 Medications Home Medications Medication Instructions Recorded Confirmed Last Taken aspirin 81 mg chewable tablet 1 tab PO DAILY 02/18/24 03/21/24 03/20/24 insulin glargine 100 unit/mL (3 See Rx Instructions .Route .COMPLEX 02/18/24 03/21/24 03/20/24 mL) subcutaneous pen (Lantus Solostar U-100 Insulin) [id number] 1 mg 1 tab PO DAILY 02/18/24 03/21/24 03/20/24 tablet Active Medications Generic Name Dose Route Start Last Admin Trade Name Nixonq PRN Reason Stop Dose Admin Lactated Ringer's 1,000 mls @ 125 mls/hr 03/21/24 09:44 03/21/24 17:45 Lr IV 03/23/24 09:43 125 mls/hr .Q8H PRN Infusion L&D Protocol Protocol Oxytocin 30 units in 500 mls @ 6 mls/hr 03/21/24 16:55 03/21/24 18:35 Pitocin 30 Units/Nss IV 03/23/24 16:54 0.36 units/hr .Q24H PRN 6 mls/hr Labor Induction/Augmentation Titration Protocol 0.36 UNITS/HR Insulin Glargine 10 units 03/21/24 09:41 03/21/24 10:56 Lantus Per Unit Charge SQ 04/20/24 09:40 Not Given DAILY KAMILA Misoprostol 50 mcg 03/21/24 14:00 03/21/24 14:05 Misoprostol 50 Mcg Tab PO 04/20/24 13:59 50 mcg Q4H KAMILA Administration Past Medical History Medical History (spontaneous vaginal delivery) 2013 Gestational diabetes mellitus requires insulin- non compliant with recommended doses Gestational hypertension history of with first ; dx at end of , required PO meds X 2 weeks Asthma History of asthma as a child Exercise / Class Metabolic Activity II 4-5 Yardwork/Stairs/Walk up hill Past Family History Family History Father Myocardial infarction Type 2 diabetes mellitus Father No problems noted. Past Surgical History Surgical History No pertinent past surgical history Past Anesthesia History No Hx of Anesthesia Complications and No Family Hx of Anesthesia Complications History of PONV No Hx of PONV and No Hx of Motion Sickness Social History Smoking Status: Never smoker Hx Alcohol Use: No Hx Substance Use: No substance use type: does not use Physical Exam Vital Signs Last Vital Signs Temp 98.2 F 03/21/24 14:00 Pulse 64 03/21/24 18:59 Resp 18 03/21/24 18:00 BP 150/89 H 03/21/24 18:59 ENMT Mouth: no dentition abnormality Thyromental Distance: > or= 3.5 Finger Breadths Mallampati Class: II Neck normal visual inspection Respiratory normal respiratory effort Auscultation: lungs clear to auscultation bilaterally Cardiovascular Rate/Rhythm: regular rate and regular rhythm Testing Laboratory Results 03/21/24 09:49 03/21/24 03/21/24 03/21/24 18:12 14:08 10:01 POC Glucose 75 77 93
[2024-03-21] MEDS ORDERED: ePHEDrine sulfate 50 MG/ML AMP IV PRN (20:51)
[2024-03-21] MEDS ORDERED: SODIUM CHLORIDE 0.9% PF INJ 10 ML VIAL EPI PRN (20:51)
[2024-03-21] MEDS ORDERED: ROPIVACAINE 0.5% PF 5 MG/ML 20 ML VIAL EPI PRN (20:51)
[2024-03-21] MEDS ORDERED: NALBUPHINE HCL 5 MG in SYRINGE 0 ML IV PRN (20:51)
[2024-03-21] MEDS ORDERED: diphenhydrAMINE 50 MG/ML VIAL IV PRN (20:51)
[2024-03-21] MEDS ORDERED: NALOXONE HCL 1 MG in SODIUM CHLORIDE 0.9% 1,000 ML IV PRN (20:51)
[2024-03-21] MEDS ORDERED: fentaNYL citrate PF 100 MCG/2 ML VIAL EPI PRN (20:51)
[2024-03-21] MEDS ORDERED: NALOXONE HCL 0.4 MG/1 ML VIAL/CARP IV PRN (20:51)
[2024-03-21] MEDS ORDERED: BUPIVACAINE 0.25% PF 30 ML VIAL EPI PRN (20:51)
[2024-03-21] MEDS ORDERED: LIDOCAINE 2% MPF LOCAL 5 ML VIAL EPI PRN (20:51)
[2024-03-21] MEDS: fentANYL 2 MCG/ML BUPIVacaine 0.125%-NSS 100ML BAG ONE (21:13)
[2024-03-21] MEDS: BUPIVACAINE 0.25% PF 30 ML VIAL ONE (21:14)
[2024-03-21] MEDS: LIDOCAINE 2%/EPINEPHRINE 1:200,000 20 ML PF ONE (21:14)
[2024-03-21] MEDS: TERBUTALINE SULFATE 1 MG/ML VIAL ONE (21:33)
--- NOTE | 2024-03-21 21:44 | Obstetrical Progress Note ---
Date of Service March 21, 2024 Assessment & Plan Admission and Anticipated Discharge Date Admission Date: March 21, 2024 Subjective Pt received epidural analgesia. FHR showed late decels after epidural Pitocin was turned off IVF Bolus Maternal position changed Turb given VE; 3cm/high FHR returned to baseline Plan continue to monitor FH Results & Data Vital Signs (Past 12 Hours) Vital Signs Temp Pulse Resp BP Pulse Ox 03/21/24 21:40 86 136/81 03/21/24 21:37 100 03/21/24 21:37 84 03/21/24 21:37 83 136/86 03/21/24 21:34 66 133/77 03/21/24 21:32 65 100 03/21/24 21:31 63 133/74 03/21/24 21:28 86 112/64 03/21/24 21:27 95 H 98 03/21/24 21:26 69 118/70 03/21/24 21:22 99 H 100/58 L 97 03/21/24 21:20 104 H 101/56 L 03/21/24 21:19 104 H 107/61 03/21/24 21:17 109 H 98 03/21/24 21:16 105 H 115/65 03/21/24 21:13 105 H 122/73 03/21/24 21:12 127 H 98 03/21/24 21:10 77 122/73 03/21/24 21:07 100 03/21/24 21:07 56 L 03/21/24 21:07 52 L 132/78 03/21/24 21:04 70 148/86 H 03/21/24 21:02 64 99 03/21/24 20:57 77 100 03/21/24 20:52 82 100 03/21/24 20:51 70 154/104 H 03/21/24 20:47 62 100 03/21/24 18:59 64 150/89 H 03/21/24 18:19 61 137/81 03/21/24 18:00 18 03/21/24 18:00 18 03/21/24 17:45 76 140/82 03/21/24 17:40 66 136/74 03/21/24 17:36 56 L 141/83 H 03/21/24 17:30 56 L 137/76 03/21/24 17:22 68 153/91 H 03/21/24 14:11 70 130/67 03/21/24 14:10 61 152/81 H 03/21/24 14:00 18 03/21/24 14:00 36.8 C 18 03/21/24 12:22 53 L 132/81
[2024-03-21] MEDS: fentaNYL citrate PF 100 MCG/2 ML VIAL ONE (21:51)
[2024-03-21] MEDS: BUPIVACAINE 0.25% PF 30 ML VIAL EPI STA (21:52)
[2024-03-21] MEDS: SODIUM CHLORIDE 0.9% PF INJ 10 ML VIAL ONE (21:52)
[2024-03-21] MEDS: SODIUM CHLORIDE 0.9% PF INJ 10 ML VIAL EPI STA (21:55)
[2024-03-21] MEDS: fentaNYL citrate PF 100 MCG/2 ML VIAL EPI STA (21:55)
[2024-03-21] MEDS: LIDOCAINE 2%/EPINEPHRINE 1:200,000 20 ML PF EPI STA (21:55)
[2024-03-21] MEDS: ePHEDrine sulfate 50 MG/ML AMP ONE (21:56)
[2024-03-21] MEDS ORDERED: CALCIUM CARBONATE 500 MG CHEWABLE TAB PO PRN (21:57)
[2024-03-21] MEDS: CALCIUM CARBONATE 500 MG CHEWABLE TAB ONE (22:25)
--- NOTE | 2024-03-22 02:43 | Obstetrical Progress Note ---
Date of Service March 22, 2024 Assessment & Plan Admission and Anticipated Discharge Date Admission Date: March 21, 2024 Subjective Pt doing well FHR; CAT1 Pit; 6mu Ctx 2-4mins VE; Unchanged Repeat sono; VT Plan: Continue Pitocin augmentation Results & Data Vital Signs (Past 12 Hours) Vital Signs Temp Pulse Resp BP Pulse Ox 03/22/24 02:37 69 96 03/22/24 02:32 65 97 03/22/24 02:27 77 98 03/22/24 02:26 68 135/79 92 03/22/24 02:22 96 H 98 03/22/24 02:17 72 98 03/22/24 02:12 70 97 03/22/24 02:11 65 118/56 L 03/22/24 02:07 66 97 03/22/24 02:02 69 97 03/22/24 01:57 98 03/22/24 01:57 70 03/22/24 01:57 73 134/63 03/22/24 01:52 67 97 03/22/24 01:47 70 97 03/22/24 01:42 67 96 03/22/24 01:40 65 120/60 03/22/24 01:37 66 96 03/22/24 01:32 71 96 03/22/24 01:27 71 97 03/22/24 01:25 64 131/72 03/22/24 01:22 78 99 03/22/24 01:17 72 97 03/22/24 01:12 75 98 03/22/24 01:11 61 131/70 03/22/24 01:07 76 96 03/22/24 01:02 81 97 03/22/24 00:57 96 03/22/24 00:57 67 03/22/24 00:57 62 118/63 03/22/24 00:52 72 96 03/22/24 00:47 67 95 03/22/24 00:42 69 97 03/22/24 00:41 86 118/66 03/22/24 00:37 69 95 03/22/24 00:32 65 96 03/22/24 00:27 96 03/22/24 00:27 66 03/22/24 00:27 62 108/58 L 03/22/24 00:22 66 95 03/22/24 00:17 73 98 03/22/24 00:12 84 96 03/22/24 00:11 59 L 131/70 03/22/24 00:07 76 95 03/22/24 00:02 73 95 03/22/24 00:00 18 03/22/24 00:00 36.8 C 18 03/21/24 23:59 73 94 03/21/24 23:57 64 95 03/21/24 23:55 71 112/56 L 03/21/24 23:54 69 94 03/21/24 23:52 70 95 03/21/24 23:48 71 94 03/21/24 23:47 66 96 03/21/24 23:42 77 96 03/21/24 23:40 63 116/61 03/21/24 23:37 64 97 03/21/24 23:33 75 94 03/21/24 23:32 76 94 03/21/24 23:27 68 98 03/21/24 23:26 74 115/58 L 03/21/24 23:22 73 99 03/21/24 23:17 83 97 03/21/24 23:13 83 131/82 03/21/24 23:12 81 97 03/21/24 23:07 76 97 03/21/24 23:02 77 97 03/21/24 22:57 95 H 96 03/21/24 22:55 90 130/80 03/21/24 22:52 97 H 95 03/21/24 22:47 87 97 03/21/24 22:42 94 H 95 03/21/24 22:40 88 124/71 03/21/24 22:37 77 95 03/21/24 22:32 95 H 96 03/21/24 22:27 97 03/21/24 22:27 90 03/21/24 22:27 93 H 132/73 03/21/24 22:22 90 98 03/21/24 22:17 96 H 98 03/21/24 22:12 85 100 03/21/24 22:11 92 H 138/79 03/21/24 22:07 102 H 97 03/21/24 22:02 87 100 03/21/24 21:57 102 H 100 03/21/24 21:56 92 H 150/85 H 03/21/24 21:52 91 H 100 03/21/24 21:47 91 H 100 05/28/24 21:42 87 98 03/21/24 21:40 86 136/81 03/21/24 21:37 100 03/21/24 21:37 84 03/21/24 21:37 83 136/86 03/21/24 21:34 66 133/77 03/21/24 21:32 65 100 03/21/24 21:31 63 133/74 03/21/24 21:28 86 112/64 03/21/24 21:27 95 H 98 03/21/24 21:26 69 118/70 03/21/24 21:22 99 H 100/58 L 97 03/21/24 21:20 104 H 101/56 L 03/21/24 21:19 104 H 107/61 03/21/24 21:17 109 H 98 03/21/24 21:16 105 H 115/65 03/21/24 21:13 105 H 122/73 03/21/24 21:12 127 H 98 03/21/24 21:10 77 122/73 03/21/24 21:07 100 03/21/24 21:07 56 L 03/21/24 21:07 52 L 132/78 03/21/24 21:04 70 148/86 H 03/21/24 21:02 64 99 03/21/24 20:57 77 100 03/21/24 20:52 82 100 03/21/24 20:51 70 154/104 H 03/21/24 20:47 62 100 03/21/24 18:59 64 150/89 H 03/21/24 18:19 61 137/81 03/21/24 18:00 18 03/21/24 18:00 18 03/21/24 17:45 76 140/82 03/21/24 17:40 66 136/74 03/21/24 17:36 56 L 141/83 H 03/21/24 17:30 56 L 137/76 03/21/24 17:22 68 153/91 H
[2024-03-22] MEDS: TERBUTALINE SULFATE 1 MG/ML VIAL SQ ONE (03:54)
[2024-03-22] MEDS: fentANYL 2 MCG/ML BUPIVacaine 0.125%-NSS 100ML BAG EPI PRN (04:27)
--- NOTE | 2024-03-22 06:40 | Delivery Summary ---
Vaginal Delivery Summary Date of Service March 22, 2024 Vaginal Delivery Summary DELIVERY NOTE Called for delivery. on arrival infant's head was already delivered and nuchal cord x1 reduced by nurse Patient delivered a live infant male in left occiput anterior presentation there was 1 nuchal cord which was easily reduced. Infant was delivered and placed on mother's abdomen. Delayed cord clamping was performed. Cord blood is obtained Cord gasses are obtained Meconium is present and mild Placenta is spontaneously delivered. Placenta appears grossly normal and has 2 vessel cord Inspection of the perineum showed a first-degree laceration at upper right labia. Laceration is repaired in layers with 2-0 Vicryl in layers Rectal exam post repair showed good sphincter tone Quantitative blood loss is 103 cc Infants weight and scores are in the pediatric record Mother and baby are stable in in the recovery
[2024-03-22] MEDS ORDERED: bisacodyL 10 MG SUPP PR PRN (06:41)
[2024-03-22] MEDS ORDERED: OXYTOCIN 30 UNITS/NSS 30 UNITS/500 ML BAG IV PRN (06:41)
[2024-03-22] MEDS ORDERED: HYDROCORTISONE ACETATE 25 MG SUPP PR PRN (06:41)
[2024-03-22 07:03] LABS: Base Excess Cord Venous Blood -4.8 mEq/L (-7.7-1.9); Cord Venous Blood HCO3 21 mmol/L (18.4-26.8); Cord Venous Blood PCO2 41 mmHg (30.4-57.2); Cord Venous Blood PO2 < 20 mmHg (14.1-43.3); Cord Venous Blood pH 7.32 (7.20-7.44); O2 Saturation Cord Venous Bld < 60.0 % (<68)
[2024-03-22] MEDS: miSOPROStoL 200 MCG TAB PR ONE (07:17)
--- NOTE | 2024-03-22 07:20 | Anesthesia Procedure Note ---
Date of Service March 22, 2024 Anesthesia Post Epidural Note Vital Signs Vital Signs: Temp Pulse Resp BP Pulse Ox 97.9 F 86 18 144/87 H 96 03/22/24 04:00 03/22/24 07:11 03/22/24 04:00 03/22/24 07:11 03/22/24 06:22 Pain Intensity Right Lower Abdomen: Pain Intensity: 8 Notes Mental Status: alert / awake / arousable and participated in evaluation Nausea / Vomiting: adequately controlled Pain: adequately controlled Airway Patency, RR, SpO2: stable & adequate BP & HR: stable & adequate Hydration State: stable & adequate Neuraxial Anesthesia: was administered and sensory block is resolving Anesthetic Complications: no major complications apparent and Pt Satisfied with anesthetic care Epidural: Removed without complications and With tip intact
[2024-03-22] MEDS: OXYTOCIN 30 UNITS/NSS 30 UNITS/500 ML BAG IV PRN (07:21)
[2024-03-22] MEDS: BENZOCAINE 20% SPRY 85 APPLN/85 GM CAN EXT PRN (07:25)
[2024-03-22] MEDS: ONDANSETRON INJ 2 MG/ML 2 ML VIAL IV PRN (07:25)
[2024-03-22 08:15] LABS: Basophils # (auto) 0.03 K/uL (0.00-0.20); Basophils % (auto) 0.3 %; Eosinophils # (auto) 0.01 K/uL (0.00-0.50); Eosinophils % (auto) 0.1 %; Hematocrit (blood only) 38.6 % (37.0-47.0); Immature Granulocytes # (auto) 0.12 K/uL (0.01-0.20); Lymphocytes # (auto) 0.58 K/uL (1.20-3.40); Lymphocytes % (auto) 4.9 %; Mean Corpuscular Hemoglobin 30.6 pg (25.0-34.0); Mean Corpuscular Hgb Conc 33.7 g/dL (32.0-36.0); Mean Corpuscular Volume 90.8 fL (80.0-100.0); Mean Platelet Volume 12.5 fL (9.4-12.4); Monocytes # (auto) 0.78 K/uL (0.11-0.59); Monocytes % (auto) 6.6 %; Neutrophils # (auto) 10.21 K/uL (1.40-6.50); Neutrophils % (auto) 87.1 %; Platelet Count 101 K/uL (130-400); RDW Coefficient of Variation 13.2 % (11.5-14.5); RDW Standard Deviation 43.1 fL (36.4-46.3); Red Blood Count 4.25 M/uL (4.20-5.40); White Blood Count 11.73 K/ul (4.8-10.8)
[2024-03-22 08:35] LABS: Albumin Globulin Ratio 1.2 (0.9-2); Albumin Level 2.9 gm/dl (3.4-5.0); BUN Creatinine Ratio 8.5 (10-20); Bilirubin,Total 3.3 mg/dl (0.2-1.0); Calcium 8.1 mg/dl (8.6-10.3); Creatinine Clr Calc Pharmacy 119.3 ml/min; Est GFR (African American) 112.9 ml/min; Est GFR (Non-African American) 97.4 ml/min; Globulin 2.5 gm/dl (2.5-4.0); Potassium 4.2 mmol/L (3.5-5.1); Total Protein 5.4 gm/dl (6.0-8.3)
[2024-03-22] MEDS: PRENATAL VITAMIN 1 TAB PO SCH (08:42)
[2024-03-22] MEDS: DOCUSATE SODIUM 100 MG CAP PO SCH (08:43)
[2024-03-22] MEDS: IBUPROFEN 600 MG TAB PO PRN (08:43)
[2024-03-22] MEDS ORDERED: LANTUS PER UNIT CHARGE SQ SCH (09:00)
[2024-03-22] MEDS: DIPHTHER/TETAN/PERTUS Vaccine (Tdap, Adol/Adult) 0.5mL IM ONE (20:11)
[2024-03-22] MEDS: ACETAMINOPHEN 325 MG TAB PO PRN (21:16)
[2024-03-23 06:48] LABS: Hematocrit (blood only) 30.3 % (37.0-47.0); Hemoglobin 10.1 g/dl (12.0-16.0); Mean Corpuscular Hemoglobin 30.3 pg (25.0-34.0); Mean Corpuscular Hgb Conc 33.3 g/dL (32.0-36.0); Mean Platelet Volume 13.7 fL (9.4-12.4); Platelet Count 80 K/uL (130-400); RDW Coefficient of Variation 13.6 % (11.5-14.5); RDW Standard Deviation 45.2 fL (36.4-46.3); Red Blood Count 3.33 M/uL (4.20-5.40); White Blood Count 8.94 K/ul (4.8-10.8)
--- NOTE | 2024-03-23 09:30 | Obstetrical Progress Note ---
Date of Service March 23, 2024 Assessment & Plan Admission and Anticipated Discharge Date Admission Date: March 21, 2024 Subjective Patient is seen and examined. She feels well, no complaints. Ambulating without dizziness Voiding without difficulty Tolerating regular diet with out N&V Bleeding is minimal No fever/ chills/ CP/ SOB/ N&V/ Leg pain Breast feeding without problems Vital Signs Temp Pulse Resp BP Pulse Ox O2 Del Method 03/23/24 08:23 36.4 C L 61 16 118/81 97 Room Air 03/23/24 04:00 36.6 C 65 16 107/71 99 Room Air 03/23/24 00:00 36.7 C 66 18 122/78 96 Room Air Lab Results 03/21/24 03/21/24 03/21/24 Range/Units 09:49 10:01 14:08 WBC 7.99 (4.8-10.8) K/ul RBC 4.23 (4.20-5.40) M/uL Hgb 13.2 (12.0-16.0) g/dl Hct 37.9 (37.0-47.0) % MCV 89.6 (80.0-100.0) fL MCH 31.2 (25.0-34.0) pg MCHC 34.8 (32.0-36.0) g/dL RDW Std Deviation 43.3 (36.4-46.3) fL RDW Coeff of Jordyn 13.2 (11.5-14.5) % Plt Count 150 (130-400) K/uL MPV 12.7 H (9.4-12.4) fL Immature Gran % (Auto) % Neut % (Auto) % Lymph % (Auto) % Adams % (Auto) % Eos % (Auto) % Baso % (Auto) % Neut # (Auto) (1.40-6.50) K/uL Lymph # (Auto) (1.20-3.40) K/uL Adams # (Auto) (0.11-0.59) K/uL Eos # (Auto) (0.00-0.50) K/uL Baso # (Auto) (0.00-0.20) K/uL Immature Gran # (Auto) (0.01-0.20) K/uL Cord ABG pH Cord ABG pCO2 Cord ABG pO2 Cord ABG HCO3 Cord ABG Base Excess Cord ABG O2 Sat Cord VBG pH (7.20-7.44) Cord VBG pCO2 (30.4-57.2) mmHg Cord VBG pO2 (14.1-43.3) mmHg Cord VBG HCO3 (18.4-26.8) mmol/L Cord VBG Base Excess (-7.7-1.9) mEq/L Cord VBG O2 Sat (<68) % Barometric Pressure Blood Gas Comments Sodium (136-145) mmol/L Potassium (3.5-5.1) mmol/L Chloride (98-107) mmol/L Carbon Dioxide (21-32) mmol/L Anion Gap (3-11) BUN (6-23) mg/dl Creatinine (0.6-1.2) mg/dl Est Cr Clr Drug Dosing ml/min Est GFR ( Amer) ml/min Est GFR (Non-Af Amer) ml/min BUN/Creatinine Ratio (10-20) Glucose (70-99(Fasting)) mg/dl POC Glucose 93 77 (70-99) mg/dl Calcium (8.6-10.3) mg/dl Total Bilirubin (0.2-1.0) mg/dl AST (13-39) U/L ALT (7-52) U/L Alkaline Phosphatase (34-104) U/L Total Protein (6.0-8.3) gm/dl Albumin (3.4-5.0) gm/dl Globulin (2.5-4.0) gm/dl Albumin/Globulin Ratio (0.9-2) 03/21/24 03/21/24 03/22/24 Range/Units 18:12 21:23 01:48 WBC (4.8-10.8) K/ul RBC (4.20-5.40) M/uL Hgb (12.0-16.0) g/dl Hct (37.0-47.0) % MCV (80.0-100.0) fL MCH (25.0-34.0) pg MCHC (32.0-36.0) g/dL RDW Std Deviation (36.4-46.3) fL RDW Coeff of Jordyn (11.5-14.5) % Plt Count (130-400) K/uL MPV (9.4-12.4) fL Immature Gran % (Auto) % Neut % (Auto) % Lymph % (Auto) % Adams % (Auto) % Eos % (Auto) % Baso % (Auto) % Neut # (Auto) (1.40-6.50) K/uL Lymph # (Auto) (1.20-3.40) K/uL Adams # (Auto) (0.11-0.59) K/uL Eos # (Auto) (0.00-0.50) K/uL Baso # (Auto) (0.00-0.20) K/uL Immature Gran # (Auto) (0.01-0.20) K/uL Cord ABG pH Cord ABG pCO2 Cord ABG pO2 Cord ABG HCO3 Cord ABG Base Excess Cord ABG O2 Sat Cord VBG pH (7.20-7.44) Cord VBG pCO2 (30.4-57.2) mmHg Cord VBG pO2 (14.1-43.3) mmHg Cord VBG HCO3 (18.4-26.8) mmol/L Cord VBG Base Excess (-7.7-1.9) mEq/L Cord VBG O2 Sat (<68) % Barometric Pressure Blood Gas Comments Sodium (136-145) mmol/L Potassium (3.5-5.1) mmol/L Chloride (98-107) mmol/L Carbon Dioxide (21-32) mmol/L Anion Gap (3-11) BUN (6-23) mg/dl Creatinine (0.6-1.2) mg/dl Est Cr Clr Drug Dosing ml/min Est GFR ( Amer) ml/min Est GFR (Non-Af Amer) ml/min BUN/Creatinine Ratio (10-20) Glucose (70-99(Fasting)) mg/dl POC Glucose 75 90 97 (70-99) mg/dl Calcium (8.6-10.3) mg/dl Total Bilirubin (0.2-1.0) mg/dl AST (13-39) U/L ALT (7-52) U/L Alkaline Phosphatase (34-104) U/L Total Protein (6.0-8.3) gm/dl Albumin (3.4-5.0) gm/dl Globulin (2.5-4.0) gm/dl Albumin/Globulin Ratio (0.9-2) 03/22/24 03/22/24 03/22/24 Range/Units 06:07 06:18 06:18 WBC (4.8-10.8) K/ul RBC (4.20-5.40) M/uL Hgb (12.0-16.0) g/dl Hct (37.0-47.0) % MCV (80.0-100.0) fL MCH (25.0-34.0) pg MCHC (32.0-36.0) g/dL RDW Std Deviation (36.4-46.3) fL RDW Coeff of Jordyn (11.5-14.5) % Plt Count (130-400) K/uL MPV (9.4-12.4) fL Immature Gran % (Auto) % Neut % (Auto) % Lymph % (Auto) % Adams % (Auto) % Eos % (Auto) % Baso % (Auto) % Neut # (Auto) (1.40-6.50) K/uL Lymph # (Auto) (1.20-3.40) K/uL Adams # (Auto) (0.11-0.59) K/uL Eos # (Auto) (0.00-0.50) K/uL Baso # (Auto) (0.00-0.20) K/uL Immature Gran # (Auto) (0.01-0.20) K/uL Cord ABG pH Cancelled Cord ABG pCO2 Cancelled Cord ABG pO2 Cancelled Cord ABG HCO3 Cancelled Cord ABG Base Excess Cancelled Cord ABG O2 Sat Cancelled Cord VBG pH 7.32 (7.20-7.44) Cord VBG pCO2 41 (30.4-57.2) mmHg Cord VBG pO2 < 20 (14.1-43.3) mmHg Cord VBG HCO3 21 (18.4-26.8) mmol/L Cord VBG Base Excess -4.8 (-7.7-1.9) mEq/L Cord VBG O2 Sat < 60.0 (<68) % Barometric Pressure Cancelled Blood Gas Comments Cancelled MASON Sodium (136-145) mmol/L Potassium (3.5-5.1) mmol/L Chloride (98-107) mmol/L Carbon Dioxide (21-32) mmol/L Anion Gap (3-11) BUN (6-23) mg/dl Creatinine (0.6-1.2) mg/dl Est Cr Clr Drug Dosing ml/min Est GFR ( Amer) ml/min Est GFR (Non-Af Amer) ml/min BUN/Creatinine Ratio (10-20) Glucose (70-99(Fasting)) mg/dl POC Glucose 110 H (70-99) mg/dl Calcium (8.6-10.3) mg/dl Total Bilirubin (0.2-1.0) mg/dl AST (13-39) U/L ALT (7-52) U/L Alkaline Phosphatase (34-104) U/L Total Protein (6.0-8.3) gm/dl Albumin (3.4-5.0) gm/dl Globulin (2.5-4.0) gm/dl Albumin/Globulin Ratio (0.9-2) 03/22/24 03/23/24 Range/Units 07:46 05:49 WBC 11.73 H 8.94 (4.8-10.8) K/ul RBC 4.25 3.33 L (4.20-5.40) M/uL Hgb 13.0 10.1 L D (12.0-16.0) g/dl Hct 38.6 30.3 L (37.0-47.0) % MCV 90.8 91.0 (80.0-100.0) fL MCH 30.6 30.3 (25.0-34.0) pg MCHC 33.7 33.3 (32.0-36.0) g/dL RDW Std Deviation 43.1 45.2 (36.4-46.3) fL RDW Coeff of Jordyn 13.2 13.6 (11.5-14.5) % Plt Count 101 L 80 L (130-400) K/uL MPV 12.5 H 13.7 H (9.4-12.4) fL Immature Gran % (Auto) 1.0 % Neut % (Auto) 87.1 % Lymph % (Auto) 4.9 % Adams % (Auto) 6.6 % Eos % (Auto) 0.1 % Baso % (Auto) 0.3 % Neut # (Auto) 10.21 H (1.40-6.50) K/uL Lymph # (Auto) 0.58 L (1.20-3.40) K/uL Adams # (Auto) 0.78 H (0.11-0.59) K/uL Eos # (Auto) 0.01 (0.00-0.50) K/uL Baso # (Auto) 0.03 (0.00-0.20) K/uL Immature Gran # (Auto) 0.12 (0.01-0.20) K/uL Cord ABG pH Cord ABG pCO2 Cord ABG pO2 Cord ABG HCO3 Cord ABG Base Excess Cord ABG O2 Sat Cord VBG pH (7.20-7.44) Cord VBG pCO2 (30.4-57.2) mmHg Cord VBG pO2 (14.1-43.3) mmHg Cord VBG HCO3 (18.4-26.8) mmol/L Cord VBG Base Excess (-7.7-1.9) mEq/L Cord VBG O2 Sat (<68) % Barometric Pressure Blood Gas Comments Sodium 138 (136-145) mmol/L Potassium 4.2 (3.5-5.1) mmol/L Chloride 109 H (98-107) mmol/L Carbon Dioxide 21 (21-32) mmol/L Anion Gap 8 (3-11) BUN 7 (6-23) mg/dl Creatinine 0.82 (0.6-1.2) mg/dl Est Cr Clr Drug Dosing 119.3 ml/min Est GFR ( Amer) 112.9 ml/min Est GFR (Non-Af Amer) 97.4 ml/min BUN/Creatinine Ratio 8.5 L (10-20) Glucose 113 H (70-99(Fasting)) mg/dl POC Glucose (70-99) mg/dl Calcium 8.1 L (8.6-10.3) mg/dl Total Bilirubin 3.3 H (0.2-1.0) mg/dl AST 16 (13-39) U/L ALT 9 (7-52) U/L Alkaline Phosphatase 130 H (34-104) U/L Total Protein 5.4 L (6.0-8.3) gm/dl Albumin 2.9 L (3.4-5.0) gm/dl Globulin 2.5 (2.5-4.0) gm/dl Albumin/Globulin Ratio 1.2 (0.9-2) PE: General: Alert, orientedx3, NAD Abd: soft, NT, fundus firm, below Umbilicus Perineum intact, Lochia rubra minimal Ext; NT, no edema AP: 28 yo s/p , ppd# 1 VSS Afebrile doing well Continue routine care All questions were answered Desires d/c home today Discussed when to call, PNV, Pain control Results & Data Vital Signs (Past 12 Hours) Vital Signs Temp Pulse Resp BP Pulse Ox O2 Del Method 03/23/24 08:23 36.4 C L 61 16 118/81 97 Room Air 03/23/24 04:00 36.6 C 65 16 107/71 99 Room Air 03/23/24 00:00 36.7 C 66 18 122/78 96 Room Air
[2024-03-23] MEDS ORDERED: bisacodyL 5 MG TABEC PO SCH (20:00)
== END 2024-03-23 11:10 | disposition home health service (06) | DRG 807 ==
LOC: 4S1 07:42 → 4E2 03-22 09:36